=== PATIENT | female | born 1950 | race Caucasian/White ===

== ENCOUNTER → 2018-06-06 19:22 | Outpatient (REF) | payer MEDICARE, BC, SELFPAY ==
[2018-06-06 19:57] LABS: Anion Gap 8.7 mmol/L (3-11); BUN 28 mg/dL (7-18); CO2 26.3 mmol/L (21.0-32.0); CREATININE 0.79 mg/dL (0.55-1.02); Calcium 9.6 mg/dL (8.5-10.1); Chloride 103 mmol/L (98-107); Glucose 73 mg/dL (70-100); Potassium 4.8 mmol/L (3.5-5.1); Sodium 138 mmol/L (136-145)
== END ==
LOC: NCHCN 19:22
PROVIDERS: PCP Nurse Practitioner Family; Visit Provider Nurse Practitioner Family
DX: I10 Essential (primary) hypertension (principal)
CPT/HCPCS: 80048

== ENCOUNTER 2018-12-26 08:42 | Outpatient (CLI) | payer MEDICARE, BC, SELFPAY ==
[2018-12-26 10:20] LABS: Anion Gap 7.3 mmol/L (3-11); BUN 18 mg/dL (7-18); CO2 30.7 mmol/L (21.0-32.0); CREATININE 0.75 mg/dL (0.55-1.02); Calcium 9.3 mg/dL (8.5-10.1); Chloride 105 mmol/L (98-107); Cholesterol 219 mg/dL (50-200); Glucose 95 mg/dL (70-100); HDL Cholesterol 61 mg/dL (40-60); LDL CHOLESTEROL 126 mg/dL (<100); Potassium 4.5 mmol/L (3.5-5.1); Sodium 143 mmol/L (136-145); Triglyceride 188 mg/dL (30-150)
== END 2018-12-26 09:02 ==
PROVIDERS: PCP Nurse Practitioner Family; Visit Provider Nurse Practitioner Family
DX: E11.9 Type 2 diabetes mellitus without complications (principal); I10 Essential (primary) hypertension; N63.0 Unspecified lump in unspecified breast
CPT/HCPCS: 36415; 80048; 80061; 83721

== ENCOUNTER 2019-04-17 11:24 | Outpatient (CLI) | payer MEDICARE, BC, SELFPAY ==
[2019-04-17 14:31] LABS: Abs Immature Grans 0.02 k/cumm (0.0-0.09); Absolute Basophil Count 0.02 k/cumm (0.0-0.2); Absolute Eosinophil Count 0.17 k/cumm (0.0-0.7); Absolute Lymphocyte Count 2.28 k/cumm (1.2-3.4); Absolute Monocyte Count 0.47 k/cumm (0.11-0.7); Absolute Neutrophil Count 3.43 k/cumm (1.2-6.7); Basophils % 0.3; Eosinophils % 2.7; HCT 37.6 % (36.0-46.0); HGB 12.7 g/dL (12.0-15.5); Immature Grans % 0.3; Lymphocytes % 35.7; Mean Corp. HGB Concentration 33.8 g/dL (32.0-36.0); Mean Corpuscular Hemoglobin 30.9 pg (27.0-33.0); Mean Corpuscular Volume 91.5 fL (80-95); Mean Platelet Volume 8.9 fL (8.0-11.0); Monocytes % 7.4; Neutrophils % 53.6; Platelet Count 216 x1000/uL (130-400); RBC 4.11 m/cumm (4.00-5.20); RBC Distribution Width 12.8 % (11.7-14.6); White Blood Cell Count 6.39 k/cumm (4.4-10.8)
--- NOTE | 2019-04-17 14:40 | DI.CT_ITS ---
SYMPTOMS/DIAGNOSIS: RIGHT ARM TINGLING/NUMBNESS ON 04/11/19, R20.0, SLURRED SPEECH, R47.81, ? STROKE CRANIAL CT: Noncontrast cranial CT was performed. There is mild generalized cerebral atrophy. There is no evidence of acute intracranial hemorrhage, mass effect or midline shift. Orbital and temporal bone structures appear intact. The visualized paranasal sinuses and mastoid air cells are clear. CONCLUSION: No evidence of acute intracranial process.
[2019-04-17 15:13] LABS: ESR 24 MM/HR (0-30)
[2019-04-17 15:32] LABS: ALT 12 U/L (12-78); AST 14 U/L (15-37); Albumin 4.1 g/dL (3.4-5.0); Alkaline Phosphatase 57 U/L (46-116); Anion Gap 8.7 mmol/L (3-11); BUN 27 mg/dL (7-18); Bilirubin, Total 0.2 mg/dL (0.2-1.0); C-Reactive Protein 0.29 mg/dL (0.0-0.3); CO2 27.3 mmol/L (21.0-32.0); CREATININE 0.89 mg/dL (0.55-1.02); Calcium 9.9 mg/dL (8.5-10.1); Chloride 103 mmol/L (98-107); Glucose 115 mg/dL (70-100); Potassium 4.8 mmol/L (3.5-5.1); Sodium 139 mmol/L (136-145); TSH 1.33 uIU/mL (0.358-3.74); Total Protein 7.7 g/dL (6.4-8.2)
[2019-04-17 15:48] LABS: HDL Cholesterol 57 mg/dL (40-60); LDL CHOLESTEROL 104 mg/dL (<100)
== END 2019-04-17 11:44 ==
PROVIDERS: PCP Nurse Practitioner Family; Visit Provider Nurse Practitioner Family
DX: R47.81 Slurred speech (principal); R20.0 Anesthesia of skin; E11.9 Type 2 diabetes mellitus without complications; I10 Essential (primary) hypertension
CPT/HCPCS: 36415; 80053; 83721; 85652; 70450; 83718; 84443; 85025; 86140

== ENCOUNTER 2019-07-10 02:26 | Outpatient (CLI) | payer MEDICARE, BC, SELFPAY ==
--- NOTE | 2019-07-16 14:00 | HOLT_ITS ---
The study is a 48-hour Holter monitoring ordered for slurred speech. - Sinus rhythm with an average heart rate of 66 bpm (min 48- max 102). - There were occasional (<1%) isolated and paired atrial premature complexes and zero runs of atrial tachycardia. - There were rare (<1%) isolated ventricular premature complexes and zero runs of ventricular tachycardia. - There were no significant pauses. CC: Dictated by: SEBASTIÁN RODRIGUEZ MD Dictated:: 1400 <Electronically signed by Sebastián Rodriguez M.D.> 07/16/19 1402 Transcribed Date: 07/16/19 Transcribed Time: 1399By: ROSETTE
== END 2019-07-10 02:46 ==
PROVIDERS: PCP Nurse Practitioner Family; Visit Provider Nurse Practitioner Family
DX: R47.81 Slurred speech (principal); R20.0 Anesthesia of skin; I49.1 Atrial premature depolarization; I49.3 Ventricular premature depolarization
CPT/HCPCS: 93225

== ENCOUNTER 2019-07-12 14:31 | Outpatient (CLI) | payer MEDICARE, BC, SELFPAY | END 2019-07-12 14:51 | PROVIDERS: PCP Nurse Practitioner Family; Visit Provider Nurse Practitioner Family | DX: R47.81 Slurred speech (principal); R20.0 Anesthesia of skin; I49.1 Atrial premature depolarization; I49.3 Ventricular premature depolarization | CPT/HCPCS: 93226 ==

== ENCOUNTER 2019-07-16 14:00 | Outpatient (CLI) | payer MEDICARE, BC, SELFPAY | END 2019-07-16 14:20 | PROVIDERS: PCP Nurse Practitioner Family; Referring Provider Nurse Practitioner Family; Visit Provider Internal Medicine Cardiovascular Disease | DX: R47.81 Slurred speech (principal); R20.0 Anesthesia of skin; I49.1 Atrial premature depolarization; I49.3 Ventricular premature depolarization | CPT/HCPCS: 93227 ==

== ENCOUNTER 2019-09-03 13:08 | Outpatient (REF) | payer MEDICARE, BC, SELFPAY ==
[2019-09-03 19:47] LABS: ALT 24 U/L (14-59); AST 19 U/L (15-37); HDL Cholesterol 57 mg/dL (40-60); LDL CHOLESTEROL 43 mg/dL (<100)
[2019-09-03 20:14] LABS: Creatine Kinase 68 U/L (26-192)
== END 2019-09-03 13:28 ==
LOC: NCHCN 13:08
PROVIDERS: PCP Nurse Practitioner Family; Visit Provider Nurse Practitioner Family
DX: I10 Essential (primary) hypertension (principal); E11.9 Type 2 diabetes mellitus without complications; R20.0 Anesthesia of skin; R47.81 Slurred speech
CPT/HCPCS: 82550; 83721; 83718; 84450; 84460

== ENCOUNTER 2020-09-02 08:52 | Outpatient (REF) | payer MEDICARE, BC, SELFPAY ==
[2020-09-02 21:19] LABS: ALT 42 U/L (14-59); AST 30 U/L (15-37); BUN 19 mg/dL (7-18); CREATININE 0.89 mg/dL (0.55-1.02); Calcium 10.5 mg/dL (8.5-10.1); Chloride 104 mmol/L (98-107); Creatine Kinase 62 U/L (26-192); Glucose 85 mg/dL (74-106); Potassium 4.5 mmol/L (3.5-5.1); Sodium 142 mmol/L (136-145)
[2020-09-02 22:05] LABS: HDL Cholesterol 63 mg/dL (40-60); Triglyceride 84 mg/dL (<150); Vitamin B12 521 pg/mL (193-986)
[2020-09-02 23:05] LABS: Calculated LDL 64 mg/dL (<100); Cholesterol 143 mg/dL (<200)
== END 2020-09-02 09:12 ==
LOC: NCHCN 08:52
PROVIDERS: PCP Nurse Practitioner Family; Visit Provider Nurse Practitioner Family
DX: I10 Essential (primary) hypertension (principal); E78.5 Hyperlipidemia, unspecified
CPT/HCPCS: 80048; 80061; 82550; 82607; 84450; 84460

== ENCOUNTER 2021-06-09 03:06 | Outpatient (CLI) | payer MEDICARE, BC, SELFPAY ==
[2021-06-10 09:40] LABS: Parathyroid Hormone,Intact 71 pg/mL (19-88)
== END 2021-06-09 03:07 | disposition home or self-care (01) ==
LOC: LBO 03:07
PROVIDERS: PCP Nurse Practitioner Family; Visit Provider Nurse Practitioner Family
DX: N20.9 Urinary calculus, unspecified (principal); R89.9 Unspecified abnormal finding in specimens from other organs, systems and tissues
CPT/HCPCS: 36415; 83970

== ENCOUNTER 2021-09-06 10:12 | Outpatient (REF) | payer MEDICARE, BC, SELFPAY ==
[2021-09-06 20:21] LABS: Hemoglobin A1C 6.5 % (<5.7)
[2021-09-06 20:33] LABS: ALT 21 U/L (14-59); AST 14 U/L (15-37); Anion Gap 8.6 mmol/L (3-11); BUN 18 mg/dL (7-18); CO2 27.4 mmol/L (21.0-32.0); CREATININE 0.9 mg/dL (0.55-1.02); Calcium 9.6 mg/dL (8.5-10.1); Chloride 102 mmol/L (98-107); Creatine Kinase 49 U/L (26-192); Glucose 149 mg/dL (74-106); HDL Cholesterol 54 mg/dL (40-60); LDL CHOLESTEROL 54 mg/dL (<100); Sodium 138 mmol/L (136-145); TSH 0.95 uIU/mL (0.36-3.74)
== END 2021-09-06 10:13 | disposition home or self-care (01) ==
LOC: NCHCN 10:12
PROVIDERS: PCP Nurse Practitioner Family; Visit Provider Nurse Practitioner Family
DX: E78.5 Hyperlipidemia, unspecified (principal); K59.00 Constipation, unspecified; E11.9 Type 2 diabetes mellitus without complications; I10 Essential (primary) hypertension
CPT/HCPCS: 80048; 82550; 83721; 83036; 83718; 84443; 84450; 84460

== ENCOUNTER → 2021-11-03 13:46 | Outpatient (BNVA) | payer MEDICARE, SELFPAY | PROVIDERS: PCP Nurse Practitioner Family; Referring Provider Nurse Practitioner Family; Visit Provider Nurse Practitioner Adult Health | DX: G31.84 Mild cognitive impairment of uncertain or unknown etiology (principal); R47.89 Other speech disturbances; I10 Essential (primary) hypertension; E11.9 Type 2 diabetes mellitus without complications | CPT/HCPCS: 99204 ==

== ENCOUNTER 2021-11-09 00:23 | Outpatient (CLI) | payer MEDICARE, SELFPAY ==
--- NOTE | 2021-11-09 07:15 | DI.MRI_ITS ---
Exam(s) MR BRAIN WO EXAM: MR BRAIN WO CLINICAL HISTORY: Wordfinding and memory difficulties,mild cognitive impairment,g31.84,r47.89 TECHNIQUE: Multiplanar multisequence MRI of the brain was performed. COMPARISON: CT CT HEAD WO from 04/17/2019 FINDINGS: VENTRICLES AND EXTRA AXIAL SPACES: Normal in size and morphology for the patient's age. MIDLINE SHIFT: None. CEREBRAL PARENCHYMA: No focus of restricted diffusion to suggest acute infarct. No space-occupying le suzette identified. There are areas of hyperintense signal seen in the white matter on the FLAIR and T2 weighted images consistent with small vessel ischemic disease. HEMORRHAGE: None. BRAINSTEM/CEREBELLUM: Normal. There is again seen a partially empty sella. CALVARIUM: Normal. VISUALIZED PARANASAL SINUSES/MASTOIDS:Clear. EYAK OF OLVERA: Normal flow void. PITUITARY GLAND: Unremarkable. OTHER FINDINGS: None. IMPRESSION: 1. Age-related cerebral atrophy and small vessel ischemic disease. 2. No evidence of an acute infarct or intracranial hemorrhage. DATA REPOSITORY:
== END 2021-11-09 00:43 ==
PROVIDERS: PCP Nurse Practitioner Family; Visit Provider Nurse Practitioner Adult Health
DX: G31.84 Mild cognitive impairment of uncertain or unknown etiology (principal); R47.89 Other speech disturbances; G31.89 Other specified degenerative diseases of nervous system
CPT/HCPCS: 70551

== ENCOUNTER 2021-12-06 09:28 | Outpatient (REF) | payer MEDICARE, SELFPAY ==
[2021-12-06 14:03] LABS: ALT 20 U/L (14-59); AST 18 U/L (15-37); HDL Cholesterol 52 mg/dL (40-60); LDL CHOLESTEROL 53 mg/dL (<100)
[2021-12-06 14:24] LABS: Creatine Kinase 64 U/L (26-192)
== END 2021-12-06 09:29 | disposition home or self-care (01) ==
LOC: NCHCN 09:28
PROVIDERS: PCP Nurse Practitioner Family; Visit Provider Nurse Practitioner Family
DX: E78.5 Hyperlipidemia, unspecified (principal); I10 Essential (primary) hypertension
CPT/HCPCS: 82550; 83721; 83718; 84450; 84460

== ENCOUNTER → 2021-12-15 09:10 | Outpatient (BNVA) | payer MEDICARE, SELFPAY | PROVIDERS: PCP Nurse Practitioner Family; Referring Provider Nurse Practitioner Family; Visit Provider Nurse Practitioner Adult Health | DX: R47.89 Other speech disturbances (principal); G31.84 Mild cognitive impairment of uncertain or unknown etiology | CPT/HCPCS: 99213; 99214 ==

== ENCOUNTER → 2022-02-03 09:29 | Outpatient (BNVA) | payer MEDICARE, SELFPAY | PROVIDERS: PCP Nurse Practitioner Family; Referring Provider Nurse Practitioner Family; Visit Provider Nurse Practitioner Adult Health | DX: G30.9 Alzheimer's disease, unspecified (principal); F02.80 Dementia in other diseases classified elsewhere, unspecified severity, without behavioral disturbance, psychotic disturbance, mood disturbance, and anxiety | CPT/HCPCS: 99213 ==

== ENCOUNTER → 2022-03-15 08:18 | Outpatient (BNVA) | payer MEDICARE, SELFPAY | PROVIDERS: PCP Nurse Practitioner Family; Referring Provider Nurse Practitioner Family; Visit Provider Nurse Practitioner Adult Health | DX: G30.9 Alzheimer's disease, unspecified (principal); F02.80 Dementia in other diseases classified elsewhere, unspecified severity, without behavioral disturbance, psychotic disturbance, mood disturbance, and anxiety | CPT/HCPCS: 99213; 99214 ==

== ENCOUNTER 2022-05-09 11:53 | Outpatient (REF) | payer MEDICARE, SELFPAY ==
[2022-05-09 16:30] LABS: Anion Gap 6.2 mmol/L (3-11); BUN 27 mg/dL (7-18); CO2 28.8 mmol/L (21.0-32.0); Calcium 9.8 mg/dL (8.5-10.1); Chloride 103 mmol/L (98-107); Estimated GFR 54.66 (mL/min/1.73m2); Glucose 190 mg/dL (74-106); Potassium 5.3 mmol/L (3.5-5.1); Sodium 138 mmol/L (136-145)
--- NOTE | 2022-05-12 14:47 | W.NUTCONSULT ---
Date of service: 05/12/22 Time of Service: 14:56 Nutritional Consult ASSESSMENT: Audra was referred for diabetes self management education for for education for a continuous glucose monitor. She is accompanied with manager rn case from [facility]. Audra reports that she no longer takes insulin as of 2 days ago. Two days ago she had a blood sugar of 42 mg/dl after taking too much levemir insulin (took 15 units 3 times daily) and too much of the lispro. Her home Dm meds were changed to metformin 1000 mg BID, 10 mg Jardiance qd. PMH: dementia and memory issues. Most recent A1C: 7.0% indicates excellent glycemic control. She brings in her blood sugar log for month- indicating well controlled BS on current regime. Appears to no longer need insulin. Diet Recall: Audra eats the same breakfast and lunch daily: B: 12 grapes, 1 prune, bran muffin (home made) 1 eggs, 2 asparagus, 4 slices carrots, L: 2 handfuls chips, 1/4 avacado, 2 Tbsp Tuna Salad, 1/2 apple, prune, lettuce leaf. D: varies- typically a meat, veg and small portion of starch. INTERVENTION: Audra does not have a phone that is compatible with the Dexcom sample that I have donated from [employer]. Of note, she no longer is eligible for a continuous glucose monitor per Medicare guidelines (must take 4 daily injections of insulin). Recommend Audra continue to check blood sugars TID and provide to PCP With current diet, expect Jardiance and metformin will be sufficient for glycemic control MONITORING AND EVALUATION: will followo up with Audra prn. Time Spent in Nutritional Counseling and Treatment: 30
== END 2022-05-09 11:54 | disposition home or self-care (01) ==
LOC: NCHCN 11:53
PROVIDERS: PCP Nurse Practitioner Family; Visit Provider Nurse Practitioner Family
DX: E11.9 Type 2 diabetes mellitus without complications (principal); I10 Essential (primary) hypertension
CPT/HCPCS: 80048; 83036

== ENCOUNTER 2022-06-01 03:06 | Outpatient (CLI) | payer MEDICARE, SELFPAY ==
--- NOTE | 2022-06-01 15:00 | NS.NUTBLAN_ITS ---
Audra returns for diabetes self management education. DM Meds: 25 mg Jardiance qd, 1000 mg metformin BID Fasting sugars: reported as less than 150 mg/dl Post Prandial sugar levels: reported as less than 180 mg/dl Audra is happy that she is able to manage her Dm2 without insulin. She took insulin over 10 years. Currently, she is able to keep her blood sugars in ideal range without insulin and is doing a great job keeping carb intake consistent at all meals. It helps that she eats the same thing for breakfast and lunch. Session today focused on eating out and at pot lucks. We discussed meal options that will be best for her glycemic management. Also, reviewed how often she needs to check her sugars. Recommend that if fasting sugars below 150 mg/dl, she can check them twice daily. If fasting sugars go above 150, recommend follow up with her PCP and checking her sugars 3-4 times daily. No follow up planned at this time.
== END 2022-06-01 03:07 | disposition home or self-care (01) ==
LOC: DS 03:06
PROVIDERS: PCP Nurse Practitioner Family; Visit Provider Dietitian, Registered
DX: E11.9 Type 2 diabetes mellitus without complications (principal); Z79.84 Long term (current) use of oral hypoglycemic drugs; Z71.3 Dietary counseling and surveillance
CPT/HCPCS: 97803

== ENCOUNTER → 2022-06-09 08:38 | Outpatient (BNVA) | payer MEDICARE, SELFPAY | PROVIDERS: PCP Nurse Practitioner Family; Referring Provider Nurse Practitioner Family; Visit Provider Physical Therapy Assistant | DX: Z80.0 Family history of malignant neoplasm of digestive organs (principal); Z12.11 Encounter for screening for malignant neoplasm of colon ==

== ENCOUNTER → 2022-06-20 08:34 | Outpatient (BNVA) | payer MEDICARE, SELFPAY | PROVIDERS: PCP Nurse Practitioner Family; Referring Provider Nurse Practitioner Family; Visit Provider Nurse Practitioner Adult Health | DX: G30.9 Alzheimer's disease, unspecified (principal); F02.80 Dementia in other diseases classified elsewhere, unspecified severity, without behavioral disturbance, psychotic disturbance, mood disturbance, and anxiety; R00.1 Bradycardia, unspecified; E11.9 Type 2 diabetes mellitus without complications | CPT/HCPCS: 99213 ==

== ENCOUNTER 2022-06-24 09:05 | Day surgery (SDC) | payer MEDICARE, SELFPAY ==
--- NOTE | 2022-06-23 19:31 | COLE_ITS ---
Colonoscopy Report Date of procedure: 06/24/22 Pre-op diagnosis general: family hx of crc cacner- father Post-op diagnosis procedure note: other (diveritcular Dx) Surgeon: Hannah Pratt Anesthesia Type: General:No Airway Estimated blood loss (mL): 0 Pathology: none sent Complications: None Disposition: same day Prep: Miralax/Dulcolax Retraction Time: 7 Procedure Description: After informed consent was obtained the patient was taken to the procedure room and placed in a left decubitous position. Monitors were applied and a time out was done. The patients name, date of , procedure, allergies to medications and metal in their body was reviewed. The patient was then sedated. Once sedated and comfortable a rectal exam was done. External exam: mild ext. hemorrhoids. Anus is patulent w/ poor tone. Internal exam revealed a normal sphincter tone and no palpable masses. The scope was then introduced and retrofelexed. Grade I internal hemorrhoids were identified. The scope was then advanced to the cecum w/out difficulty. The TI and appendiceal orifice were identified. The prep was BBPS 3 in all segments for a total of 9. The scope was then slowly retracted over 7 minutes back into the rectum. There were no polyps or AVMs. She has minor diverti cular disease confined to the sigmoid colon. There is no signs of active bleeding or infection. Mucosa is pink and healthy with a normal vascular pattern. She does have poor tone. the scope was removed and the patient was woken up and taken back to Same day surgery in stable condition. The patient tolerated the procedure well and there were no immediate complications. Follow up: The patient does not require any further colonoscopies, unless they develop changes in bowel habits or other new gastrointestinal complaints.
--- NOTE | 2022-06-23 19:32 | PDOC.DSDIS_ITS ---
Discharge Plan Disposition Patient Disposition: HOME Condition: Good Discharge Details Reason For Visit: colon scope Attending Provider: Hannah Pratt Primary Care Provider: Tiana Mcneal Home Meds and New Rx's Prescriptions: Continued Jardiance 10 mg tablet 25 mg PO DAILY donepezil 5 mg tablet 5 mg PO QHS Qty: 90 3RF memantine 10 mg tablet 10 mg PO BID Qty: 180 3RF aspirin [Aspir-81] 81 MG tablet,delayed release (DR/EC) 81 mg PO DAILY metformin 1,000 MG tablet 1,000 mg PO BID lisinopril 10 MG tablet 10 mg PO DAILY ibuprofen 200 mg capsule 200 mg PO BID PRN calcium carbonate 600 mg calcium (1,500 mg) tablet 600 mg PO DAILY acetaminophen 325 mg capsule 325 mg PO ONCE PRN atorvastatin 40 mg tablet 20 mg PO QHS Discontinued bisacodyl [Dulcolax (bisacodyl)] 5 mg tablet,delayed release (DR/EC) 5 mg PO ONCE Qty: 4 0RF Rx Instructions: Take according to provider's instructions for colonoscopy prep. polyethylene glycol 3350 17 gram/dose powder 17 g PO ONCE Qty: 238 0RF Rx Instructions: To be taken as directed by prescriber's office for colonoscopy prep. Discharge Instructions Additional Instructions: DSU Colonoscopy Post- Op Instructions Instructions for Everyone who is given Anesthesia: For your safety, please do the following for the next twenty-four (24) hours: *Do Not operate a motor vehicle (car, truck, motorcycle, etc.) *Do Not drink alcoholic beverages or use any recreational drugs for the first 24 hours or while taking pain medications. The medications in your body may have a reaction that can be dangerous. *Do Not make any important decisions or sign any important papers. Findings: Diverituclar Dx- mild Follow up: no further colonoscopy's 1. No lifting over 20 pounds or strenuous activity for the first 24 hours after your procedure. After 24 hours there are no restrictions on your activity but you may feel fatigued for a few days. 2. After you arrive home you may have a light meal and return to your normal di et as you can tolerate it without feeling sick to your stomach. 3. You may have a bloated, gaseous feeling in your belly (abdomen) after a colonoscopy. Passing gas and belching will help. Walking or lying down on your left side with your knees flexed may relieve the discomfort. Call the office at [phone] (Office) or [phone] (Hospital) right away if you notice any of the following: a.Vomiting of blood or ?coffee ground stools?. b.Rectal bleeding 1Tbsp, blood clots or continuous bleeding. c.Severe belly (abdominal) pain. d.A hard distended belly (abdomen) and an inability to pass gas. 4. Please don?t expect to have a normal BM (bowel movement) for 2-3 days after your procedure. 5. If there are questions regarding the findings of your procedure, please contact your doctor 6. If you are unable to contact your doctor with a problem, contact the hospital at [phone]. 7. Continue all your regular medications unless directed otherwise. I understand the above instructions and have no questions. Signature of Patient or Adult Escort Name of Responsible Adult Escort Signature of Nurse Date/Time Activity:: see above Diet:: see above Discharge Orders Discharge Orders: Discharge Order (Routine); Ordered 06/23/22 Ordered By: Hannah Pratt
[2022-06-24 09:25] VITALS: BP 121/60; PULSE 87; RESP 18; TEMP 36.4; O2SAT 98
--- NOTE | 2022-06-24 09:57 | W.ANESPRE ---
General Info Date of Service Date Performed: 06/24/22 Height: 5 ft 4 in Weight: 67.9 kg Body Mass Index (BMI): 25.7 Surgical Procedure: Operation Date: 06/24/22 10:35 Proposed Procedure Side Surgeon kalpesh Pratt, Meds Allergies and Home Medications Allergies Allergy/AdvReac Type Severity Reaction Status Date / Time amoxicillin Allergy Severe Verified 06/24/22 09:21 Penicillins Allergy Severe anaphalaxis Verified 06/24/22 09:21 Home Medication Medication Instructions Recorded Aspir-81 81 mg tablet,delayed 81 mg PO DAILY 10/07/13 release (aspirin) lisinopril 10 mg tablet 10 mg PO DAILY 10/07/13 metformin 1,000 mg tablet 1,000 mg PO BID 10/07/13 acetaminophen 325 mg capsule 325 mg PO ONCE PRN 06/10/21 calcium carbonate 600 mg calcium 600 mg PO DAILY 06/10/21 (1,500 mg) tablet ibuprofen 200 mg capsule 200 mg PO BID PRN 06/10/21 atorvastatin 40 mg tablet 20 mg PO QHS 09/17/21 donepezil 5 mg tablet 5 mg PO QHS #90 tabs 03/15/22 memantine 10 mg tablet 10 mg PO BID #180 tabs 03/15/22 empagliflozin 10 mg tablet 25 mg PO DAILY 06/09/22 (Jardiance) Current Visit Medications: Current Medications Generic Name Dose Route Start Last Admin Trade Name Freq PRN Reason Stop Dose Admin Hyoscyamine Sulfate 0.125 mg 06/23/22 19:28 Hyoscyamine 0.125 Mg Sl/Oral/Chew SL DIRECTED PRN Ringer's Solution 1,000 mls @ 80 mls/hr 06/24/22 06:00 IV 07/23/22 23:59 [facility] IV Miscellaneous Supplies 1 each 06/24/22 06:00 Iv Access IV 07/23/22 23:59 DIRECTED DAVON Ondansetron HCl 4 mg 06/23/22 19:28 Ondansetron 4 Mg/2 Ml Vial IVP Q4H PRN PRN Nausea / Vomiting Sodium Chloride 0 ml 06/24/22 06:00 Normal Saline Flush 10 Ml Syr IV 07/23/22 23:59 PRN PRN Sodium Chloride 0 ml 06/24/22 06:00 Normal Saline 10 Ml Vial IJ 07/23/22 23:59 DIRECTED PRN Sterile Water 0 ml 06/24/22 06:00 Water,Injection,Sterile 10 Ml Vial IJ 07/23/22 23:59 DIRECTED PRN PFSH Active Problems Active Problems: Problem Status Onset Code Family history of colon cancer Z80.0 Screening for colon cancer Z12.11 Constipation K59.00 Mild cognitive impairment G31.84 Word finding difficulty R47.89 Alzheimer's dementia without behavioral disturbance G30.9, F02.80 Medical History Medical History Calcium oxalate kidney stones Depression Family history of Alzheimer's disease Hyperlipidemia Hypertension Impingement syndrome of left shoulder Lyme disease Nocturia Slurred speech Type 2 diabetes mellitus Surgical History Surgical History (Updated 06/24/22 @ 09:21 by Charlette Laws) Colonoscopy - MAC 2014-NEG History of tubal ligation Tobacco Smoking/Tobacco Use Status: Former Tobacco Use Alcohol Alcohol Intake: current Alcohol intake frequency: holidays/special occasions only Substance Use Substance use: Never Substance use type: does not use Vital Signs and Lab Results Vital Signs Most Recent Vital Signs in EMR: Most Recent Vital Signs Temp Pulse Resp BP Pulse Ox 36.4 C L 87 18 121/60 98 06/24/22 09:25 06/24/22 09:25 06/24/22 09:25 06/24/22 09:25 06/24/22 09:25 Point of Care Results Point of Care Results: Finger Stick Blood Glucose 85 06/24/22 09:39 Lab Results Blood Type / Crossmatch: No Data to Display Complete Blood Count: No Data to Display Complete Metabolic Panel: No Data to Display Liver Function Panel: No Data to Display Coagulation Panel: No Data to Display Cardiac Panel: No Data to Display Arterial Blood Gas: No Data to Display Venous Blood Gas: No Data to Display Pancreas Panel: No Data to Display Thyroid Panel: No Data to Display Infectious Disease: No Data to Display Blood Cultures: No Data to Display Toxicology Panel: No Data to Display Anesthesia Assessment and Plan Anesthesia History Personal History: No History of Anesthesia Complications Family History: No Family History of Anesthesia Complications Exercise Tolerance Exercise Tolerance: Metabolic Equivalents>4 Pertinent Negatives Pertinent Negatives: No Symptoms of GERD and No Major Cardiovascular Symptoms or Complaints Cardiac & Pulmonary Exam Cardiac Exam: Normal S1/S2 Heart Sounds and Known Innocent Murmur Pulmonary Exam: Clear Bilateral Breath Sounds Implantable Cardiac Device Does patient have a Pacemaker or an ICD?: No Airway Exam Known Difficult Airway: No Mallampati Class: 1 Mouth Opening: Normal (> 3cm) Thyromental Distance: Greater than 3 cm Neck Range of Motion: Full ROM Neck Circumference: Normal Teeth Condition: Normal Dentition ASA Classification ASA Score: ASA 2 Emergency Case?: No NPO Status NPO Status: NPO Clears >2 hours, Solids >8 hours Anesthesia Plan Resuscitation Status: Full Code Anesthesia Technique: General Anesthesia Airway Planned: Natural Airway Monitors Used: Standard Monitors
[2022-06-24 10:01] VITALS: BMI 25.7
[2022-06-24] MEDS: Lactated Ringers 1,000 ML 80 ML IV (10:21)
[2022-06-24 10:55] VITALS: BP 96/67; PULSE 70; RESP 16; TEMP 36.3; O2SAT 97
--- NOTE | 2022-06-24 10:57 | W.ANESPOSTOP ---
Postoperative Evaluation Date, Time and Location Date Performed: 06/24/22 Time Performed: 10:57 Patient Location: Day Surgery Unit Vital Signs Most Recent Imported Vital Signs: Most Recent Vital Signs Temp Pulse Resp BP Pulse Ox 36.4 C L 87 18 121/60 98 06/24/22 09:25 06/24/22 09:25 06/24/22 09:25 06/24/22 09:25 06/24/22 09:25 Most Recent Manually Entered Vital Signs: Adult Blood Pressure: 96/67 Heart Rate: 69 Respirations: 12 Oxygen Saturation (%): 98 Temperature (C): 36.3 C Pain Score (0-10 Scale): 0 Pain Score Most Recent Pain Score: Most Recent Pain Score Pain Level 0 06/24/22 09:25 Assessment Mental Status: Awake (Alert & Oriented to Patient Baseline) Airway and Respiratory Function: Patent airway with normal (patient baseline) respiratory exam Cardiovascular Function: Hemodynamically Stable Hydration Status: Adequately Hydrated Nausea & Vomiting: No Nausea or Vomiting Pain: Pt. Denies Any Pain Peripheral Nerve Block: Patient did not receive a nerve block
[2022-06-24 10:58] VITALS: BP 96/67; PULSE 69; RESP 12; TEMPC 36.3; O2SAT 98
[2022-06-24 11:25] VITALS: BP 116/58; PULSE 66; RESP 16; TEMP 36.4; O2SAT 97
--- NOTE | 2022-06-24 11:55 | W.ANESPOSTOP ---
Postoperative Evaluation Date, Time and Location Date Performed: 06/24/22 Time Performed: 11:55 Patient Location: Day Surgery Unit Vital Signs Most Recent Imported Vital Signs: Most Recent Vital Signs Temp Pulse Resp BP Pulse Ox 36.3 C L 70 16 96/67 L 97 06/24/22 10:55 06/24/22 10:55 06/24/22 10:55 06/24/22 10:55 06/24/22 10:55 Most Recent Vital Signs Temp Pulse Resp BP Pulse Ox 36.4 C L 87 18 121/60 98 06/24/22 09:25 06/24/22 09:25 06/24/22 09:25 06/24/22 09:25 06/24/22 09:25 Most Recent Manually Entered Vital Signs: Adult Blood Pressure: 128/107 Heart Rate: 70 Respirations: 12 Oxygen Saturation (%): 99 Temperature (C): 36.3 C Pain Score (0-10 Scale): 0 Pain Score Most Recent Pain Score: Most Recent Pain Score Pain Level 0 06/24/22 10:55 Assessment Mental Status: Awake (Alert & Oriented to Patient Baseline) Airway and Respiratory Function: Patent airway with normal (patient baseline) respiratory exam Cardiovascular Function: Hemodynamically Stable Hydration Status: Adequately Hydrated Nausea & Vomiting: No Nausea or Vomiting Pain: Pt. Denies Any Pain Peripheral Nerve Block: Patient did not receive a nerve block
== END 2022-06-24 11:48 | disposition home or self-care (01) ==
LOC: SUR 09:05
PROVIDERS: PCP Nurse Practitioner Family; Visit Provider Surgery
PROC: 0DJD8ZZ Inspection of Lower Intestinal Tract, Via Natural or Artificial Opening Endoscopic (ICD-10-PCS; CPT 45378; principal; 2022-06-24 10:30)
DX: Z12.11 Encounter for screening for malignant neoplasm of colon (principal); Z80.0 Family history of malignant neoplasm of digestive organs; K57.30 Diverticulosis of large intestine without perforation or abscess without bleeding; E11.9 Type 2 diabetes mellitus without complications
CPT/HCPCS: G0105

== ENCOUNTER 2022-08-15 13:55 | Outpatient (REF) | payer MEDICARE, SELFPAY ==
[2022-08-15 18:29] LABS: Anion Gap 7.7 mmol/L (3-11); BUN 29 mg/dL (7-18); CO2 29.3 mmol/L (21.0-32.0); Calcium 9.7 mg/dL (8.5-10.1); Chloride 103 mmol/L (98-107); Estimated GFR 60.23 (mL/min/1.73m2); Glucose 125 mg/dL (74-106); HDL Cholesterol 63 mg/dL (40-60); LDL CHOLESTEROL 50 mg/dL (<100); Potassium 4.7 mmol/L (3.5-5.1); Sodium 140 mmol/L (136-145)
[2022-08-15 18:33] LABS: Hemoglobin A1C 7.6 % (<5.7)
== END 2022-08-15 13:56 | disposition home or self-care (01) ==
LOC: NCHCN 13:55
PROVIDERS: PCP Nurse Practitioner Family; Visit Provider Nurse Practitioner Family
DX: E78.5 Hyperlipidemia, unspecified (principal); E11.9 Type 2 diabetes mellitus without complications; R89.9 Unspecified abnormal finding in specimens from other organs, systems and tissues; I10 Essential (primary) hypertension
CPT/HCPCS: 80048; 83721; 83036; 83718

== ENCOUNTER → 2022-12-20 09:08 | Outpatient (BNVA) | payer MEDICARE, SELFPAY | PROVIDERS: PCP Nurse Practitioner Family; Referring Provider Nurse Practitioner Family; Visit Provider Nurse Practitioner Adult Health | DX: R47.89 Other speech disturbances (principal); G30.9 Alzheimer's disease, unspecified; F02.80 Dementia in other diseases classified elsewhere, unspecified severity, without behavioral disturbance, psychotic disturbance, mood disturbance, and anxiety | CPT/HCPCS: 99213; 99214 ==

== ENCOUNTER → 2023-01-19 13:26 | Outpatient (BNVA) | payer MEDICARE, SELFPAY | PROVIDERS: PCP Nurse Practitioner Family; Referring Provider Nurse Practitioner Family; Visit Provider Nurse Practitioner Adult Health | DX: G30.9 Alzheimer's disease, unspecified (principal); F02.80 Dementia in other diseases classified elsewhere, unspecified severity, without behavioral disturbance, psychotic disturbance, mood disturbance, and anxiety; R47.89 Other speech disturbances | CPT/HCPCS: 99213 ==

== ENCOUNTER 2023-03-28 12:37 | Outpatient (REF) | payer MEDICARE, SELFPAY ==
[2023-03-28 15:27] LABS: Hemoglobin A1C 7.8 % (<5.7)
== END 2023-03-28 12:38 | disposition home or self-care (01) ==
LOC: NCHCN 12:37
PROVIDERS: PCP Nurse Practitioner Family; Visit Provider Nurse Practitioner Family
DX: E11.9 Type 2 diabetes mellitus without complications (principal)
CPT/HCPCS: 83036

== ENCOUNTER → 2023-07-27 14:53 | Outpatient (BNVA) | payer MEDICARE, SELFPAY | PROVIDERS: PCP Nurse Practitioner Family; Referring Provider Nurse Practitioner Family; Visit Provider Nurse Practitioner Adult Health | DX: G30.9 Alzheimer's disease, unspecified (principal); F02.80 Dementia in other diseases classified elsewhere, unspecified severity, without behavioral disturbance, psychotic disturbance, mood disturbance, and anxiety; E11.9 Type 2 diabetes mellitus without complications; I10 Essential (primary) hypertension | CPT/HCPCS: 99213 ==

== ENCOUNTER 2023-09-21 13:10 | Outpatient (REF) | payer MEDICARE, SELFPAY ==
--- OUTSIDE RECORDS SUMMARY | 2023-09-21 13:12 | XMS_ITS | Continuity of Care Document ---
Author Name Unknown Organization [facility] Address [address] [place] [address] Care Team Providers Care Vamp Maker Name Role Phone RikkiTiana martinez Primary Care Physician Encounter NCTY_[place] Date(s): 09/07/23 - 09/07/23 [facility] [address] [place] [address] Discharge Disposition: Home or Self Care Attending Physician: Adilson Dickson MD Admitting Physician: Adilson Dickson MD Referring Physician: Adilson Dickson MD Allergies, Adverse Reactions, Alerts Substance Reaction Severity Status amoxicillin 1 Unknown Unknown Active penicillins Other Unknown Active 1Outside Source Comment: CIS - SOB, Edema, CIS - SOB, Edema Immunizations Given and Recorded Vaccine Date Status Refusal Reason influenza virus vaccine, inactivated 07/09/14 Uriah rded Medications Actos 15 mg oral tablet 15 mg = 1 tab, Oral, Daily, # 30 tab, 0 Refill(s) Start Date: 09/07/23 Status: Ordered aspirin 81 mg oral delayed release tablet Oral, 81 Unknown, 1 Refill(s), Take 81 mg by mouth daily., 0 Refill(s) Start Date: 03/09/23 Status: Ordered atorvastatin 10 mg oral tablet 10 mg = 1 tab, Oral, Daily, # 90 tab, 0 Refill(s) Start Date: 04/06/23 Status: Ordered calcium (as carbonate) 500 mg oral tablet 0 Refill(s) Start Date: 03/09/23 Status: Ordered donepezil 10 mg oral tablet 10 mg = 1 tab, Oral, every day at bedtime, # 30 tab, 0 Refill(s) Start Date: 03/09/23 Status: Ordered Januvia 100 mg oral tablet 100 mg 1 tab, Oral, Daily, # 30 tab, 0 Refill(s) Start Date: 09/07/23 Status: Ordered Januvia 25 mg oral tablet 2 tablets, Oral, Daily, # 30 tab, 0 Refill(s) Start Date: 03/09/23 Status: Ordered lisinopril 10 mg oral tablet 90 EA, TAKE 1 TABLET BY MOUTH ONCE DAILY, 0 Refill(s) Start Date: 03/09/23 Status: Ordered magnesium oxide 250 mg oral tablet 500 mg = 2 tab, Oral, Daily, # 20 tab, 0 Refill(s) Start Date: 03/09/23 Stop Date: 03/19/23 Status: Ordered metFORMIN 1000 mg oral tablet 180 EA, TAKE 1 TABLET BY MOUTH TWICE DAILY, 0 Refill(s) Start Date: 03/09/23 Status: Ordered MiraLax oral powder for reconstitution 17 g, Oral, Daily, # 238 g, 0 Refill(s) Start Date: 03/09/23 Status: Ordered Myrbetriq 50 mg oral tablet, extended release 50 mg = 1 tab, Oral, Daily, do not crush or chew, # 28 tab, 0 Refill(s), samples given to patient (Rx) Start Date: 02/10/23 Stop Date: 03/10/23 Status: Ordered Namenda 10 mg oral tablet 0 Refill(s) Start Date: 03/09/23 Status: Ordered Vitamin B12 1000 mcg oral tablet 1,000 mcg = 1 tab, Oral, Daily, # 30 tab, 0 Refill(s) Start Date: 04/06/23 Status: Ordered Problem List Condition Confirmation Course Effective Dates Status H ealth Status Informant Alzheimer's dementia Confirmed Active Constipation Confirmed Active Dementia Confirmed Active Depression Confirmed Active Family history of colon cancer Confirmed Active Family history of Alzheimer's disease Confirmed Active Follicle cyst Confirmed Active Callus of foot Confirmed Active Heart murmur Confirmed Active History of calculus of kidney Confirmed 02/17/16 Active History of Lyme disease Confirmed Active Hyperlipidemia Confirmed Active Hypertension Confirmed Active Impingement syndrome of left shoulder Confirmed Active Joint pain Confirmed Active Abnormal laboratory test result Confirmed Active Nocturia Confirmed Active Onychomadesis Confirmed Active Postmenopausal status (age-related) (natural) Confirmed Active Slurred speech Confirmed Active Type 2 diabetes mellitus Confirmed 03/14/12 Active Urinary incontinence Confirmed Active Urolithiasis Confirmed Active Word finding difficulty Confirmed Active Procedures Procedure Date Related Diagnosis Body Site Status Colonoscopy Completed None Completed Results Orders for Microbiology Reports Name Date Urine Culture 09/07/23 Microbiology Reports TEST:Urine Culture STATUS:Order in Progress BODY SITE: SOURCE:Urine, Clean Catch COLLECTED DATE/TIME:09/07/23 1:35 PM PRELIMINARY REPORT No growth at 24 hours. Social History Social History Type Response Tobacco Former tobacco user Tobacco Use:. Total pack years: 2. Sex Female Patient Care team information Care Team Personnel Name: Tiana Mcneal NP Position: No Access Member Role: Informed Provider Address: Address: [address] Care Team Related Persons Name: ANDRIY URIBE
--- OUTSIDE RECORDS SUMMARY | 2023-09-21 13:12 | XMS_ITS | Continuity of Care Document ---
Author Name Unknown Organization [facility] Address [address] [place] [address] Care Team Providers Care Claims Service Adjustor Name Role Phone Tiana Mcneal Primary Care Physician [phone] Encounter NCTY_[place] Date(s): 10/24/22 - 10/24/[address] [address] Discharge Disposition: Home or Self Care Attending Physician: Tiana Mcneal NP Admitting Physician: Tiana Mcneal NP Referring Physician: Tiana Mcneal NP Allergies, Adverse Reactions, Alerts Substance Reaction Severity Status penicillins Other Unknown Active Social History Social History Type Response Sex Female Patient Care team information Personnel Name: Tiana Mcneal NP Address: Address: [id number] [place] [address]
--- OUTSIDE RECORDS SUMMARY | 2023-09-21 13:12 | XMS_ITS | Continuity of Care Document ---
Author Name Unknown Organization [facility] Address [address] [place] [address] Care Team Providers Care Mononitrotoluene Operator Name Role Phone RikkiTiana martinez Primary Care Physician Encounter NCTY_[place] Date(s): 04/28/23 - 04/28/23 [facility] [address] [place] [address] Discharge Disposition: Home or Self Care Attending Physician: Chary Cash PA-C Admitting Physician: Chary Cash PA-C Allergies, Adverse Reactions, Alerts Substance Reaction Severity Status amoxicillin 1 Unknown Unknown Active penicillins Other Unknown Active 1Outside Source Comment: CIS - SOB, Edema, CIS - SOB, Edema Assessment and Plan Future Appointments Immunizations Given and Recorded Vaccine Date Status Refusal Reason influenza virus vaccine, inactivated 07/09/14 Uriah rded Medications aspirin 81 mg oral delayed release tablet [...] Refill(s) Start Date: 03/09/23 Status: Ordered Januvia 25 mg oral tablet [...] for Microbiology Reports Name Date Urine Culture 04/28/23 Microbiology Reports TEST:Urine Culture STATUS:Order in Progress BODY SITE: SOURCE:Urine, Clean Catch COLLECTED DATE/TIME:04/28/23 3:43 PM PRELIMINARY REPORT <10,000 cfu/ml Gram Positive Cocci Social History Social History Type Response Tobacco Former tobacco user Tobacco Use:. Total pack years: 2. Sex Female Patient Care team information Care Team Personnel Name: Tiana Mcneal BILLING CONTROL CLERK Position: No Access Member Role: Informed Provider Address: Address: [address] Care Team Related Persons Name: RONY ANDRIY Address: Home
--- OUTSIDE RECORDS SUMMARY | 2023-09-21 13:12 | XMS_ITS | Continuity of Care Document ---
Author Name Unknown Organization [facility] Address [address] [place] [address] Care Team Providers Care Home Health Billing Specialist Name Role Phone Elizabet Tiana Primary Care Physician [phone] Encounter NCTY_AL Date(s): 04/13/23 - 04/13/23 [facility] [address] [place] [address] Encounter Diagnosis Labial fusion(Discharge Diagnosis) - 04/13/23 Atrophic vulvovaginitis(Discharge Diagnosis) - 04/13/23 Total urinary incontinence(Discharge Diagnosis) - 04/13/23 Dementia(Discharge Diagnosis) - 04/13/23 Postmenopausal atrophic vaginitis(Final) - Other specified urinary incontinence(Final) - Unspecified dementia, unspecified severity, without behavioral disturbance, psychotic disturbance, mood disturbance, and anxiety(Final) - Fusion of labia(Final) - Type 2 diabetes mellitus without complications(Final) - Discharge Disposition: Home or Self Care Attending Physician: Adilson Dickson MD Admitting Physician: Adilson Dickson MD Referring Physician: Adilson Dickson MD Allergies, Adverse Reactions, Alerts Substance Reaction Severity Status amoxicillin 1 Unknown Unknown Active penicillins Other Unknown Active 1Outside Source Comment: CIS - SOB, Edema, CIS - SOB, Edema Assessment and Plan Future Appointments Functional Status 04/13/23 Other exposure to Infectious Disease Non e Immunizations Given and Recorded Vaccine Date Status [...] Site Status Colonoscopy Completed None Completed Results Laboratory List Name Date Glucose POCT 04/13/23 Most recent to oldest [Reference Range]: 1 Glucose POC [74-106 mg/dL] 154 mg/dL *HI* (04/13/23 7:38 AM) Vital Signs Most recent to oldest [Reference Range]: 1 2 3 Temperature Temporal Artery [36-38 Deg C] 36.3 Deg C (04/13/23 12:32 PM) 36.2 Deg C (04/13/23 12:05 PM) 35.7 Deg C *LOW* (04/13/23 11:49 AM) Temperature Temporal Artery (DegF) [97.3-100 Deg F] 97.34 Deg F (04/13/23 12:32 PM) 97.16 Deg F *LOW* (04/13/23 12:05 PM) 96.26 Deg F *LOW* (04/13/23 11:49 AM) Peripheral Pulse Rate [60-100 bpm] 61 bpm (04/13/23 12:32 PM) 57 bpm *LOW* (04/13/23 12:20 PM) 58 bpm *LOW* (04/13/23 12:05 PM) Heart Rate Monitored [60-100 bpm] 61 bpm (04/13/23 12:32 PM) 56 bpm *LOW* (04/13/23 12:20 PM) 57 bpm *LOW* (04/13/23 12:05 PM) Respiratory Rate [12-24 br/min] 17 br/min (04/13/23 12:32 PM) 13 br/min (04/13/23 12:20 PM) 19 br/min (04/13/23 12:05 PM) Blood Pressure [90-140/60-90 mmHg] 102/68mmHg (04/13/23 12:32 PM) 117/54mmHg (04/13/23 12:20 PM) 126/55mmHg (04/13/23 12:05 PM) Mean Arterial Pressure, Cuff [65-140 mmHg] 79 mmHg (04/13/23 12:32 PM) 75 mmHg (04/13/23 12:20 PM) 79 mmHg (04/13/23 12:05 PM) Mean Arterial Pressure Cuff 81 mmHg (04/13/23 7:36 AM) Blood Pressure Location Right arm (04/13/23 7:36 AM) Weight 65.4 kg (04/13/23 7:36 AM) Height 163 cm (04/13/23 7:36 AM) Social History Social History Type Response Tobacco Former tobacco user Tobacco Use:. Total pack years: 2. Sex Female Hospital Discharge Instructions Follow Up Care 03/28/2023 16:15:00 With:Adilson Dickson MD Address: [facility] [address] [place] [address] When:1 to 2 weeks Comments:Office visit??10 to 14 days. Discharge instructions * Rosa Sims RN: PERFORM Event Display: Discharge Instructions Authored Date: [id number] BETHANY CHRIST Gumaro :1950 Age:72 years Sex:Female Visit Date:04/13/2023 Primary Care Physician: Tiana Mcneal NP Hospital Discharge Instructions We would like to thank you for allowing us to assist you with your healthcare needs. The following includes patient education materials and information regarding your injury/illness. Your Next Steps Instructions From Your Care Team Diet as tolerated. ??Activity as tolerated. ??Expect some blood spotting from the vagina.?? Apply??water-based??lubricant to the upper and lower??parts of the vagina 2-3 times daily until office visit.?? May use Tylenol, exercising Tylenol, ibuprofen, Advil, or Aleve for pain.?? Call or return for fever above 100.5, shaking chills, severe pain, difficulty voiding, heavy bleeding, or other concerns. Discharge Orders Discharge Diet Instruction, Regular home diet Medications What How Much When Why Instructions Next Dose Changed SITagliptin (Januvia 25 mg oral tablet) 2 tablets Oral (given by mouth) Every day Unchanged aspirin (aspirin 81 mg oral delayed release tablet) Oral (given by mouth) 81 Unknown, 1 Refill(s), Take 81 mg by mouth daily. ?? Unchanged atorvastatin (atorvastatin 10 mg oral tablet) 1 tab Oral (given by mouth) Every day Unchanged calcium carbonate (calcium (as carbonate) 500 mg oral tablet) Unchanged cyanocobalamin (Vitamin B12 1000 mcg oral tablet) 1 tab Oral (given by mouth) Every day Unchanged donepezil (donepezil 10 mg oral tablet) 1 tab Oral (given by mouth) Every night at bedtime Unchanged lisinopril (lisinopril 10 mg oral tablet) 90 EA, TAKE 1 TABLET BY MOUTH ONCE DAILY ?? Unchanged magnesium oxide (magnesium oxide 250 mg oral tablet) 2 tab Oral (given by mouth) Every day Duration: 10 Days Unchanged memantine (Namenda 10 mg oral tablet) Unchanged metFORMIN (metFORMIN 1000 mg oral tablet) 180 EA, TAKE 1 TABLET BY MOUTH TWICE DAILY ?? Unchanged mirabegron (Myrbetriq 50 mg oral tablet, extended release) 1 tab Oral (given by mouth) Every day Incontinence without sensory awareness Duration: 28 Days do not crush or chew ?? Unchanged polyethylene glycol 3350 (MiraLax oral powder for reconstitution) 17 Gram Oral (given by mouth) Every day Your Summary Your Care Team Admitting Physician - Adilson Dickson MD Attending Physician - Adilson Dickson MD Primary Care Physician - Tiana Mcneal NP Referring Physician - Adilson Dickson MD Patient Name:CHRIST SIMS I have received this information and my questions have been answered. Patient/Package Line Operator Name: Patient/Package Line Operator Signature: Relationship to Patient: Witness Name/Signature: Date: Electronically Signed on: 04/13/2023 12:10 EDTSigned by:RA History and physical note * Adilson Dickson MD: PERFORM Event Display: History and Physical Authored Date: [id number] CHRIST SIMS :1950 Age:72 years Sex:Female Primary Care Physician: Tiana Mcneal NP Chief Complaint Surgery History of Present Illness Mrs. Sims was evaluated recently for UTI's and urinary incontinence. ?? Exam revealed labial fusion.?? It was suspected that vaginal voiding might be part of her incontinence issue.?? Release of the fusion was recommended. ?? We also addressed some of her medications and tried Myrbetriq.?? She felt that she was better, but her daughter felt that the incontinence was the same. ?? Case was discussed at length with her PCP. ?? After discussion, she now presents for??release of labial fusion and??diagnostic cystourethroscopy. Review of Systems Interval review of systems is negative.?? However,??patient has cognitive impairment and generally??does not offer complaints. Physical Exam Pleasant elderly woman in no distress. ?? HEENT normal. ?? Respirations are unlabored. ?? Abdomen is soft and nontender. ??No CVA tenderness. ?? Updated vaginal exam is deferred??to the operating room. ?? Lower extremities show no significant edema. ?? Neuro nonfocal. ??Cognitive impairment. Assessment/Plan 1.??Labial fusion??Q52.5 Severe labial fusion??likely leading to vaginal voiding and possibly contributory to her urinary incontinence. ??While no guarantees can be given that the incontinence will improve??after release of the labial fusion, it is strongly recommended.?? Access to her urethra for catheterization would be ??extremely difficult should she require hospitalization and require a catheter for medical management.?? Ultimately, the vagina could close altogether.?? There is an increased risk of introital colonization with her current anatomy. ?? Potential risks, benefits, and alternatives have been discussed at length, including but not limited to anesthetic risk, bleeding, infection, pain, scar tissue,??recurrent??fusion??(postoperative care will be emphasized), and need for additional procedures. ??All questions were answered and informed consent was obtained. 2.??Atrophic vulvovaginitis??N95.2 Severe vaginal atrophy. ??Topical estrogen will be necessary??postoperatively. 3.??Total urinary incontinence??N39.498 Total urinary incontinence, likely multifactorial.?? Cystoscopy will assess for CIS or intravesicalneoplasm.?? Vaginal voiding might contribute. ??We will reassess after surgery. 4.??Dementia??F03.90 Complicating care. Problem List/Past Medical History Ongoing Abnormal laboratory test result Alzheimer's dementia Callus of foot Constipation Dementia Depression Family history of Alzheimer's disease Family history of colon cancer Follicle cyst Heart murmur History of calculus of kidney History of Lyme disease Hyperlipidemia Hypertension Impingement syndrome of left shoulder Joint pain Nocturia Onychomadesis Postmenopausal status (age-related) (natural) Slurred speech Type 2 diabetes mellitus Urinary incontinence Urolithiasis Word finding difficulty Historical No qualifying data Procedure/Surgical History ???Colonoscopy???None Medications Inpatient No active inpatient medications Home aspirin 81 mg oral delayed release tablet, Oral atorvastatin 10 mg oral tablet, 10 mg= 1 tab, Oral, Daily calcium (as carbonate) 500 mg oral tablet donepezil 10 mg oral tablet, 10 mg= 1 tab, Oral, every night at bedtime Januvia 25 mg oral tablet, 2 tablets, Oral, Daily lisinopril 10 mg oral tablet magnesium oxide 250 mg oral tablet, 500 mg= 2 tab, Oral, Daily metFORMIN 1000 mg oral tablet MiraLax oral powder for reconstitution, 17 g, Oral, Daily Myrbetriq 50 mg oral tablet, extended release, 50 mg= 1 tab, Oral, Daily Namenda 10 mg oral tablet Vitamin B12 1000 mcg oral tablet, 1000 mcg= 1 tab, Oral, Daily Allergies amoxicillin??(Unknown) penicillins??(Other) Social History Alcohol Past- Comments: Pt quit years ago Electronic Cigarette/Vaping Electronic Cigarette Use: Never. Employment/School Retired Home/Environment Lives with Alone. Living situation: Home/Independent. Home equipment: Daughter checks in on Pt. Substance Use Never Tobacco Former tobacco user Tobacco Use:. Total pack years: 2. Immunizations Vaccine Date Status influenza virus vaccine, inactivated 07/09/2014 Recorded Electronically Signed on 04/13/23 06:53 AM Adilson Dickson MD Patient Care team information Care Team Personnel Name: Tiana Mcneal NP Position: No Access Member Role: Informed Provider Address: Address: [id number] [place] [address] Care Team Related Persons Name: ANDRIY URIBE Address: Home
--- OUTSIDE RECORDS SUMMARY | 2023-09-21 13:12 | XMS_ITS | Continuity of Care Document ---
Author Name Unknown Organization [facility] Address [address] [place] [address] Care Team Providers Care Clinical Trials Manager Name Role Phone Tiana Mcneal Primary Care Physician [phone] Encounter NCTY_GA Date(s): 02/13/23 - 02/13/[address] [address] Discharge Disposition: Home or Self Care Attending Physician: Adilson Dickson MD Admitting Physician: Adilson Dickson MD Allergies, Adverse Reactions, Alerts Substance Reaction Severity Status amoxicillin 1 Unknown Unknown Active penicillins Other Unknown Active 1Outside Source Comment: CIS - SOB, Edema, CIS - SOB, Edema Immunizations Given and Recorded Vaccine Date Status Refusal Reason influenza virus vaccine, inactivated 07/09/14 Uriah rded Problem List Condition Confirmation Course Effective Dates Status Health St atus Informant History of calculus of kidney Confirmed 02/17/16 Active Type 2 diabetes mellitus Confirmed 03/14/12 Active Results Orders for Microbiology Reports Name Date Urine Culture 02/13/23 Microbiology Reports TEST:Urine Culture STATUS:Order in Progress BODY SITE: SOURCE:Urine, Clean Catch COLLECTED DATE/TIME:02/13/23 5:47 PM PRELIMINARY REPORT 10,000 - 100,000 cfu/ml Mixed Gram Positive [place] Social History Social History Type Response Tobacco Former tobacco user Tobacco Use:. Total pack years: 2. Sex Female Patient Care team information Care Team Personnel Name: Tiana Mcneal SHEET METAL WORKER HELPER Position: No Access Member Role: Primary Care Physician Address: Address: [facility] [address] [place], [place] [address] Care Team Related Persons Name: ANDRIY URIBE Address: Home
[2023-09-21 17:11] LABS: ALT 20 U/L (14-59); AST 20 U/L (15-37); Albumin 4.1 g/dL (3.4-5.0); Alkaline Phosphatase 52 U/L (46-116); Anion Gap 4.4 mmol/L (3-11); BUN 19 mg/dL (7-18); Bilirubin, Total 0.4 mg/dL (0.2-1.0); CO2 32.6 mmol/L (21.0-32.0); CREATININE 0.9 mg/dL (0.55-1.02); Calcium 10.2 mg/dL (8.5-10.1); Chloride 101 mmol/L (98-107); Estimated GFR 67.92 (mL/min/1.73m2); Glucose 205 mg/dL (74-106); HDL Cholesterol 78 mg/dL (40-60); LDL CHOLESTEROL 58 mg/dL (<100); Potassium 4.5 mmol/L (3.5-5.1); Sodium 138 mmol/L (136-145); Total Protein 7.9 g/dL (6.4-8.2)
[2023-09-21 17:16] LABS: Hemoglobin A1C 7.7 % (<5.7)
[2023-09-21 17:27] LABS: Creatine Kinase 62 U/L (26-192)
== END 2023-09-21 13:11 | disposition home or self-care (01) ==
LOC: NCHCN 13:10
PROVIDERS: PCP Nurse Practitioner Family; Visit Provider Nurse Practitioner Family
DX: E11.9 Type 2 diabetes mellitus without complications (principal)
CPT/HCPCS: 80053; 82550; 83721; 83036; 83718

== ENCOUNTER → 2024-02-01 13:47 | Outpatient (BNVA) | payer MEDICARE, SELFPAY | PROVIDERS: PCP Nurse Practitioner Family; Referring Provider Nurse Practitioner Family; Visit Provider Nurse Practitioner Adult Health | DX: G30.9 Alzheimer's disease, unspecified (principal); F02.80 Dementia in other diseases classified elsewhere, unspecified severity, without behavioral disturbance, psychotic disturbance, mood disturbance, and anxiety | CPT/HCPCS: 99213 ==

== ENCOUNTER 2024-02-22 14:39 | Outpatient (REF) | payer MEDICARE, SELFPAY ==
[2024-02-22 18:52] LABS: Bilirubin Negative (Negative); Blood Negative (Negative); Clarity Clear (Clear); Glucose 500 mg/dL (Negative); Ketones Negative (Negative); Leukocyte Esterase Negative (Negative); Nitrite Negative (Negative); Specific Gravity 1.025 (1.005-1.025); Urobilinogen 0.2 mg/dL (Up to 0.2); pH 5.5 (5-8)
== END 2024-02-22 14:40 | disposition home or self-care (01) ==
LOC: NCHCN 14:39
PROVIDERS: PCP Nurse Practitioner Family; Visit Provider Nurse Practitioner Family
DX: R73.9 Hyperglycemia, unspecified (principal); B96.89 Other specified bacterial agents as the cause of diseases classified elsewhere
CPT/HCPCS: 81003; 87086

== ENCOUNTER 2024-09-19 13:06 | Outpatient (REF) | payer MEDICARE, SELFPAY ==
--- OUTSIDE RECORDS SUMMARY | 2024-09-19 13:08 | XMS_ITS ---
Author Organization Unknown ALLERGIES AND ADVERSE REACTIONS No information ASSESSMENT No information CHIEF COMPLAINT No information MEDICATIONS No information OBJECTIVE DATA No information PHYSICAL EXAMINATION No information TREATMENT PLAN Planned Care Start Date Provider Encounter for Check-up [id number] PROBLEMS No information RESULTS No information REVIEW OF SYSTEMS No information SUBJECTIVE DATA No information VITAL SIGNS No information
--- OUTSIDE RECORDS SUMMARY | 2024-09-19 13:09 | XMS_ITS | Encounter Summary ---
Author Organization [facility] Address [address] [place] [address] Care Team Providers Care Molecular Biology Director Name Role Phone Angie Mantilla MD Primary Care Provider Unavailable Encounter Details Date Type Department Care Team (Late st Contact Info) Description 01/05/2018 Historical Results Only [facility] Radiology Results [address] [place] [address] Joseline Shoemaker MD [address] [facility] [address] [place] [address] Social History Tobacco Use Types Packs/Day Years Used Date Smoking Tobacco: Never Assessed Comments Unknown Sex and Gender Information Value Date Recorded Sex Assigned at Not on file Legal Sex Female 18:12 EST Gender Identity Not on file Sexual Orientation Not on file documented as of this encounter Plan of Treatment Not on file documented as of this encounter Procedures Procedure Name Priority Date/Time Associated Diagnosis Comments XR LUMBAR SPINE 2-3 VIEWS 01/05/2018 13:20 EDT VIT D, 25-HYDROXY - [facility] Routine 01/05/2018 12:21 EDT ANTI JEREMIAH ANTIBODIES - [facility] Routine 01/05/2018 12:21 EDT ANTI GLIADIN IGG & IGA AB - CV Routine 01/05/2018 12:21 EDT LYME AB Routine 01/05/2018 12:21 EDT ZZLYME IMMUNOBLOT CONFIRMATION Routine 01/05/2018 12:21 EDT SYNOVIAL FLD CC/DIFF - [facility] Routine 01/05/2018 11:00 EDT SYNOVIAL FLUID CRYSTALS Routine 01/05/2018 11:00 EDT documented in this encounter Results * XR LUMBAR SPINE 2-3 VIEWS (01/05/2018 13:20 EDT) Anatomical Region Laterality Modality Other 01/05/2018 13:2 0 EDT Narrative 01/05/2018 13:23 EDT ? EXAM: RADIOLOGY/LUMBAR SPINE 2 OR 3 VIEWS EX. D/ (1239) ? CLINICAL INFORMATION: ? M54.5 MIDLINE LBP W/O SCIATICA ? INDICATION: M54.5 MIDLINE LBP W/O SCIATICA M54.5, M25.461, R19.7, ? M25.462 ? TECHNIQUE: Two-view lumbar spine. ? COMPARISON: None ? FINDINGS: ? Mild convex rightward curvature of lumbar spine is centered at L3. ? The posterior spinal alignment is anatomic. There is disc ? degeneration throughout the lumbar spine. The findings are most ? advanced at L4-5 and L5-S1 where disc space narrowing is ? moderate/severe and osteophytic ridging is present. There is also ? hypertrophic facet arthrosis of the lower lumbar levels. ? IMPRESSION: ? Degenerative spondylosis of the lumbar spine, most advanced at L4-L5 ? and L5-S1. ? REPORT SIGNED IN OTHER VENDOR SYSTEM 01/05/2018 ?Reported By: Adilson Garzon MD ? CC: ? Transcribed Date/Time: 01/05/2018 (1323) ? Pharmaceutical Operator: ? Printed Date/Time: 03/28/2019 (7425) ? PAGE 1 ? Signed Report ? Procedure Note Adilson Garzon E - 08/14/2019 EXAM: RADIOLOGY/LUMBAR SPINE 2 OR 3 VIEWS EX. D/ (1239) CLINICAL INFORMATION: M54.5 MIDLINE LBP W/O SCIATICA INDICATION: M54.5 MIDLINE LBP W/O SCIATICA M54.5, M25.461, R19.7, M25.462 TECHNIQUE: Two-view lumbar spine. COMPARISON: None FINDINGS: Mild convex rightward curvature of lumbar spine is centered at L3. The posterior spinal alignment is anatomic. There is disc degeneration throughout the lumbar spine. The findings are most advanced at L4-5 and L5-S1 where disc space narrowing is moderate/severe and osteophytic ridging is present. There is also hypertrophic facet arthrosis of the lower lumbar levels. IMPRESSION: Degenerative spondylosis of the lumbar spine, most advanced atL4-L5 and L5-S1. REPORT SIGNED IN OTHER VENDOR SYSTEM 01/05/2018 Reported By: Adilson Garzon MD CC: Transcribed Date/Time: 01/05/2018 (9283) Pharmaceutical Operator: Printed Date/Time: 03/28/2019 (1008) PAGE 1 Signed Report us Joseline Shoemaker MD IMG DIAGNOSTIC IMAGING O RDERABLES Final Result * VIT D, 25-HYDROXY - [facility] (01/05/2018 12:21 EDT) VIT D, 25 HYDROXY - [facility] 32.7 30 - 100 ng/ml 01/05/2018 13:27 EDT [facility] Comment: ? 25-Hydroxy D Total (D2+D3) ?Expected Values Deficient: ?<20 ng/ml Insufficient: ? 20- <30 ng/ml Sufficient: ? 30-100 ng/ml Potential intoxication: >100 ng/ml 01/05/2018 12:2 1 EDT 01/05/2018 12:21 EDT Narrative [facility] - 01/05/2018 13:27 EDT Does PT Have a Latex Allergy? NO Joseline Shoemaker MD CHEMISTRY & BLOOD GAS OR DERABLES Final Result Performing Organization Address [facility] de Phone Number [facility] * LYME AB (01/05/2018 12:21 EDT) Lyme Ab IgG POSITIVE 01/05/2018 20:31 EDT [facility] Comment:Reflex to Western Bl ot has been ordered. Lyme Ab NEGATIVE 01/05/2018 20:31 EDT [facility] 01/05/2018 12:2 1 EDT 01/05/2018 12:21 EDT Narrative [facility] - 01/05/2018 20:31 EDT Does PT Have a Latex Allergy? NO Joseline Shoemaker MD IMMUNOLOGY AND SEROLOGY ORDERABLES Final Result Performing Organization Address [facility] de Phone Number [facility] * ANTI GLIADIN IGG & IGA AB - [facility] (01/05/2018 12:21 EDT) GLIADIN IGA ANTIBODY - [facility] <10.0 () U 01/09/2018 7:30 EDT [facility] Comment: REFERENCE VALUE <20.0 (Negative) GLIADIN IGG ANTIBODY - [facility] <10.0 () U 01/09/2018 7:30 EDT [facility] Comment: REFERENCE VALUE <20.0 (Negative) Test Performed by: [facility] - [address] [address] 01/05/2018 12:2 1 EDT 01/05/2018 12:21 EDT Narrative [facility] - 01/09/2018 7:30 EDT Does PT Have a Latex Allergy? NO us Joseline Shoemaker MD CHEMISTRY & BLOOD GAS OR DERABLES Final Result [facility] * ANTI JEREMIAH ANTIBODIES - [facility] (01/05/2018 12:21 EDT) JEREMY 1 AB IGG, S - [facility] <0.2 () U 01/09/2018 7:30 [facility] Comment: REFERENCE VALUE <1.0 (Negative) Test Performed by: [facility] - [address] [address] PHOTOGRAPHIC PROCESS WORKER AB IGG,S - [facility] 0.4 () U 01/09/2018 7:30 T [facility] Comment: REFERENCE VALUE <1.0 (Negative) SCL 70 AB, IGG,S - [facility] <0.2 () U 01/09/2018 7:30 [facility] Comment: REFERENCE VALUE <1.0 (Negative) ORALIA AB IGG - [facility] <0.2 () U 01/09/2018 7:30 EDT [facility] Comment: REFERENCE VALUE <1.0 (Negative) SS-A/RO AB, IGG,S - [facility] <0.2 () U 01/09/2018 7:30 EDT [facility] Comment: REFERENCE VALUE <1.0 (Negative) SS-B/LA AB,IGG,S - [facility] <0.2 () U 01/09/2018 7:30 [facility] Comment: REFERENCE VALUE <1.0 (Negative) 01/05/2018 12:2 1 EDT 01/05/2018 12:21 EDT Narrative [facility] - 01/09/2018 7:30 EDT Does PT Have a Latex Allergy? NO us Joseline Shoemaker MD CHEMISTRY & BLOOD GAS OR DERABLES Final Result [facility] * LYME IMMUNOBLOT CONFIRMATION (01/05/2018 12:21 EDT) Lyme IGG Bands SEE COMMENTS () kDa 01/11/20 18 20:44 T [facility] Comment:p93, p66, p58, p45, p41, p39, p30, p28, p23, p18 Lyme IGM Band(s) p23 () kDa 01/11/20 18 20:44 EDT [facility] Lyme IgM ImmunoBlot Negative () 01/10/2018 20:44 EDT [facility] Comment: Reference Range: Negative Result will be sent to appropriate Department of Health Lyme Immunoblot Interpretation SEE COMMENTS () 01/10/2018 20:44 EDT [facility] Comment: 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 ?? CDC criteria requires >=5 bands for IgG or >=2 bands for IgM for the Western blot to be considered postiive. ??Bands may be detected in patients without Lyme disease. Patterns not meeting CDC criteria should be interpreted with caution. ?? Per CDC guidelines, Western blot testing should only be performed on specimens that are positive or equivocal by Immunoassay. Performing only the Western blot increases the possibility of false positive results. Results should be considered positive only when both the immunoassay and the Western blot are positive. Test Performed by: [place] [address] Salvage Winder And Inspector: Ger Steele MD , Ph D Lyme IGG ImmunoBlot Positive () 01/10/2018 20:44 EDT [facility] Comment:Reference Range: Neg ative 01/05/2018 12:2 1 EDT 01/05/2018 12:21 EDT us Joseline Shoemaker MD IMMUNOLOGY AND SEROLOGY ORDERABLES Final Result Performing Organization Address [facility]/ZIP Co de Phone Number [facility] * SYNOVIAL FLUID CRYSTALS - [facility] (01/05/2018 11:00 EDT) EXTRACELLULAR - [facility] Rare 01/05/2018 13:16 EDT [facility] INTRACELLULAR - [facility] Not Present 01/05/2018 13:16 EDT [facility] SYNOVIAL FLD CRYSTALS - [facility] Positive 01/05/2018 13:16 EDT [facility] Comment:Calcium pyrophosphat e crystals. 01/05/2018 11:0 0 EDT 01/05/2018 12:32 EDT us Joseline Shoemaker MD CHEMISTRY & BLOOD GAS OR DERABLES Final Result Performing Organization Address [facility]/ZIP Co de Phone Number [facility] * (ABNORMAL) SYNOVIAL FLD CC/DIFF - [facility] (01/05/2018 11:00 EDT) SYNOVIAL FLD LYMPHOCYTE - CV 11 % 01/05/2018 14:12 EDT [facility] SYNOVIAL FLD MONOCYTE - CV 22 % 01/05/2018 14:12 EDT [facility] SYNOVIAL FLD SOURCE - CV KNEE UNSPECIFIED 01/05/2018 14:15 EDT [facility] SYNOVIAL FLD POLY - CV 67 % 01/05/2018 14:12 EDT [facility] SYNOVIAL FLD WBC - [facility] 8,166(H) 0 - 200 /ul 01/05/2018 13:34 EDT [facility] 01/05/2018 11:0 0 EDT 01/05/2018 12:32 EDT us Joseline Shoemaker MD CHEMISTRY & BLOOD GAS OR DERABLES Final Result [facility] documented in this encounter Visit Diagnoses Not on filedocumented in this encounter Care Teams Molecular Biology Director Relationship Specialty Start Date End Date Angie Mantilla MD PCP - General 08/22/15 documented as of this encounter
--- OUTSIDE RECORDS SUMMARY | 2024-09-19 13:09 | XMS_ITS | Encounter Summary ---
Author Organization [facility] Address [facility] [place] [address] Care Team Providers Care Arborer Name Role Phone Angie Mantilla MD Primary Care Provider [phone] Reason for Visit * Reason Comments Diabetes Encounter Details Date Type Department Care Team (Late st Contact Info) Description 03/01/2017 3:00 PM EDT Office [place] [address] Rut Pinon APRN [facility] [place] [address] Type 2 diabetes mellitus without complication, with long-term current use of insulin Social History Tobacco Use Types Packs/Day Years Used Date Smoking Tobacco: Former Cigarettes Q uit: 03/02/1975 Smokeless Tobacco: Never Alcohol Use Standard Drinks/Week Comments Not Asked 0 (1 standard drink = 0.6 oz pur e alcohol) Sex and Gender Information Value Date Recorded Sex Assigned at Not on file Gender Identity Not on file Sexual Orientation Not on file documented as of this encounter Last Filed Vital Signs Vital Sign Reading Time Taken Comments Blood Pressure 128/76 03/01/2017 3:18 PM EDT Pulse - - Temperature - - Respiratory Rate - - Oxygen Saturation - - Inhaled Oxygen Concentration - - Weight 79.3 kg (174 lb 12.8 oz) 03/01/2017 3:18 PM EDT Height 163.8 cm (5' 4.49) 03/01/2017 3:18 PM ED T Body Mass Index 29.55 03/01/2017 3:18 PM EDT documented in this encounter Patient Instructions * Patient Instructions* Rut Pinon APRN - 03/01/2017 3:00 PM EDT Will schedule follow-up as needed documented in this encounter Progress Notes * Rut Pinon APRN - 03/01/2017 3:00 PM EDT REASON FOR VISIT: Follow type 2 DM in continued good control. BRIEF HISTORY: Presents for annual followup. States she is worried about coverage of her medicines now that she is on medicare. DATE OF DIAGNOSIS OF DIABETES: 2000. DIABETES REGIMEN: Victoza 1.8 mg daily, metformin 1000 mg twice a day, Levemir 20 units twice a day, Humalog up to 10 units before meals 3 times a day. 24-HOUR MEAL PLAN: Breakfast is an egg and an Tunisian muffin. Lunch is usually a sandwich. Evening meal is protein potatoes and vegetable. PHYSICAL ACTIVITY: Walking. PAST MEDICAL HISTORY: Type 2 DM, hyperlipidemia. PAST SURGICAL HISTORY: Tubal ligation. REVIEW OF SYSTEMS: Enjoying correction. Eyes: No recent vision changes. No recent headaches or chest pain or shortness of breath. No recent GI symptoms. Appetite is less. Sleep pattern is good. Extremities are good. PHYSICAL EXAM: Appearance: She appears in excellent health, pleasant, has good eye contact. Blood pressure 128/76. Eyes: No retinopathy with green light exam. Neck: No thyromegaly or lymphadenopathy. Heart: Regular rate and rhythm. Lungs are clear to auscultation. Feet: Skin is normal. Pulses are normal. Neuro: Normal sensation to 10 g of pressure. Hemoglobin A1c 6.2%. Previous was 7.3%. IMPRESSION AND PLAN: DM type 2 in excellent control. Prescription has already been sent for Victoza. Prescription sent for metformin. Patient is running out of test strips. Gave her a written prescription for the OneTouch and also gave her a Verio OneTouch meter. She is going to decide whether she wants to fill the prescriptions of the Verio or the OneTouch strips. Gave her written prescriptions for each of them. Explained to patient that if insulin gets too costly while on medicare she can change to NPH ReliOn brand and regular insulins. She prefers to return to office as needed or as advised by PCP. This was a 35-minute office visit with 23 minutes spent counseling [id number] with patient in the management of glucose levels, discussing other insulin options that are less costly, doing prescriptions for the test strips, metformin and ANNETTE inhibitor. documented in this encounter Plan of Treatment Not on file documented as of this encounter Visit Diagnoses Diagnosis Type 2 diabetes mellitus without complication, with long-term current use of insulin documented in this encounter Care Teams Arborer Relationship Specialty Start Date End Date Angie Mantilla MD [facility] [address] [place] [address] PCP - General 10/15/10 07/05/18 documented as of this encounter
--- OUTSIDE RECORDS SUMMARY | 2024-09-19 13:09 | XMS_ITS | Encounter Summary ---
Author Organization [facility] Address [facility] [place] [address] Care Team Providers Care Certified Endoscopy Technician Name Role Phone Angie Mantilla MD Primary Care Provider [phone] Reason for Visit * Reason Onset Date Comments Medication Refill 04/17/2017 Encounter Details Date Type Department Care Team (Late st Contact Info) Description 04/17/2017 [place] [address] Rut Pinon, [facility] [place] [address] Social History Tobacco Use Types Packs/Day Years [...] documented as of this encounter Visit Diagnoses Not on filedocumented in this encounter Care Teams Certified Endoscopy Technician Relationship Specialty Start Date End Date Angie Mantilla MD [facility] D [address] [place] [address] PCP - General 10/15/10 07/05/18 documented as of this encounter
--- OUTSIDE RECORDS SUMMARY | 2024-09-19 13:09 | XMS_ITS | Encounter Summary ---
Author Organization [facility] [place] [address] Care Team Providers Care Spanish Moss Picker Name Role Phone Tiana Mcneal MANAGER INVENTORY CONTROL Primary Care Provider [phone] Reason for Visit * Reason Comments Medication Refill Encounter Details Date Type Department Care Team (Late st Contact Info) Description 05/26/2018 Ref[place] [address] Rut Pinon MANAGER INVENTORY CONTROL [facility] [address] [place] [address] Social History Tobacco Use Types Packs/Day Years [...] on filedocumented in this encounter Care Teams Spanish Moss Picker Relationship Specialty Start Date End Date Tiana Mcneal APRN PCP - General Family Medicine 10/20/20 documented as of this encounter
--- OUTSIDE RECORDS SUMMARY | 2024-09-19 13:09 | XMS_ITS | Encounter Summary ---
Author Organization [facility] Address [facility] [place] [address] Care Team Providers Care Hand Sizer Name Role Phone Angie Mantilla MD Primary Care Provider [phone] Reason for Visit * Reason Comments Medication Refill Encounter Details Date Type Department Care Team (Late st Contact Info) Description 01/21/2017 Ref[place] [address] Rut Pinon [facility] [place] [address] Social History Tobacco Use Types Packs/Day Years [...] on filedocumented in this encounter Care Teams Hand Sizer Relationship Specialty Start Date End Date Angie Mantilla MD [facility] D [address] [place] [address] PCP - General 10/15/10 07/05/18 documented as of this encounter
--- OUTSIDE RECORDS SUMMARY | 2024-09-19 13:09 | XMS_ITS | Encounter Summary ---
Author Organization [facility] Address [facility] [place] [address] Care Team Providers Care Cable Television Technician Name Role Phone Tiana Mcneal APRN Primary Care Provider [phone] Reason for Visit * Reason Comments Skin Check * Consultation (Routine) - Specialty Diagnoses / Procedures Referred By Madonna lozano Referred To Contact Dermatology Diagnoses Melanocytic nevi, unspecified Nevus; Est. Patient-Notes Received Procedures Consult Tiana Mcneal APRN [address] [place] [address] Ugo Carrizales MD [address] [place] [address], [facility] [address] Referral ID Status Reason Start Date Expiration Date V isits Requested Visits Authorized [id number] Consult, Test & Treat PCP Updated and/or Approved 09/04/2020 03/04/2021 6 6 Encounter Details Date Type Department Care Team (Late st Contact Info) Description 10/20/2020 3:00 PM EST Office Visit Dermatology at [address] [address] Ugo Carrizales MD [address] [place] [address], [facility] [address] Nevus Social History Tobacco Use Types Packs/Day Years [...] on file documented as of this encounter Progress Notes * Ugo Carrizales MD - 10/20/2020 3:00 PM EST Problem: New patient, initial visit, skin check Audra is a 69-year-old woman who is concerned about a mole in the suprapubic area on the right andalso on her right anterior hip upper abdomen that have somewhat irregular appearance. She would like to have this checked. Patient is not aware of any personal or family history of skin cancer/melanoma. Physical examination reveals a pleasant 69-year-old woman who has type III Good pigmentation, graying dark hair, and brown eyes. 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 She has a compound versus intradermal nevus on the right hip. She has another compound was intradermal nevus with a junctional component in the right mons pubis area. Careful examination of the scalp the face the neck the chest the back the hands the arms forearms the thighs and the calves is otherwise benign. There is no evidence of any malignant or previous lesions. Assessment and plan: Benign skin examination 1. Patient reassured about her benign skin examination 2. Reassured about benign nevi including the newly noted nevus in the right mons pubis area. 3. Recommend return to clinic on a as needed basis CC: Tiana Mcneal APRN documented in this encounter Plan of Treatment Not on file documented as of this encounter Visit Diagnoses Diagnosis Nevus Benign neoplasm of skin, site unspecified documented in this encounter Care Teams Cable Television Technician Relationship Specialty Start Date End Date Tiana Mcneal APRN PCP - General Family Medicine 10/20/20 documented as of this encounter
--- OUTSIDE RECORDS SUMMARY | 2024-09-19 13:09 | XMS_ITS | Encounter Summary ---
Author Organization [facility] Address [facility] [place] [address] Care Team Providers Care Collar Fuser Name Role Phone Angie Mantilla MD Primary Care Provider [phone] Reason for Visit * Reason Comments Medication Refill Encounter Details Date Type Department Care Team (Late st Contact Info) Description 08/14/2017 Ref[place] [address] Rut Pinon [facility] [address] ENDOCRIN[place] [address] Social History Tobacco Use Types Packs/Day Years [...] on filedocumented in this encounter Care Teams Collar Fuser Relationship Specialty Start Date End Date Angie Mantilla MD [facility] [address] [place] [address] PCP - General 10/15/10 07/05/18 documented as of this encounter
--- OUTSIDE RECORDS SUMMARY | 2024-09-19 13:09 | XMS_ITS | Encounter Summary ---
Author Organization [facility] Address [address] [place] [address] Care Team Providers Care Firmware Test Engineer Name Role Phone Angie Mantilla MD Primary Care Provider Unavailable Encounter Details Date Type Department Care Team (Latest Contact Info) Description 01/05/2018 15:02 EDT - 01/05/2018 23:59 EDT Hospital Encounter [facility] [address] [place] [address] Unknown, Provider, MD Discharge Disposition: Home or Self Care Social History Tobacco Use Types Packs/Day Years Used Date Smoking Tobacco: Never Assessed Comments Unknown Sex and Gender Information Value Date Recorded Sex Assigned at Not on file Legal Sex Female 18:12 EST Gender Identity Not on file Sexual Orientation Not on file documented as of this encounter Discharge Disposition Disposition Code Departure Means Destination Home or Self Residential documented in this encounter Plan of Treatment Not on file documented as of this encounter Visit Diagnoses Not on filedocumented in this encounter Care Teams Firmware Test Engineer Relationship Specialty Start Date End Date Angie Mantilla MD PCP - General 08/22/15 documented as of this encounter
--- OUTSIDE RECORDS SUMMARY | 2024-09-19 13:09 | XMS_ITS | Encounter Summary ---
Author Organization [facility] Address [address] [place] [address] Care Team Providers Care Director Enterprise Systems Name Role Phone Angie Mantilla MD Primary Care Provider Unavailable Encounter Details Date Type Department Care Team (Late st Contact Info) Description 08/31/2015 Results Only [facility] [phone] Angie Mantilla MD Social History Tobacco Use Types Packs/Day Years [...] Procedure Name Priority Date/Time Associated Diagnosis Comments PAP TEST- RESULT ONLY Routine 08/31/2015 0:00 EST documented in this encounter Results * PAP TEST- RESULT ONLY (08/31/2015 0:00 EST) Pathology Report: CYTOPATHOLOGY REPORT Reports generated via electronic interface contain original data; however they are lacking the format of the original report. Caution should be taken when reading/interpreti ng unformatted reports. Name: ? AUDRA SIMS ? Accession #: ? [id number] ? : ? 1950 (Age: 64) ??F ?Collect Date: ? 08/31/2015 ? Location: ? [facility] ? Receive Date: ? 09/02/2015 ? Provider: ANGIE MANTILLA MD Copy to: ? Final Report SPECIMEN ADEQUACY ? Satisfactory for Evaluation - transformation zone component present GENERAL CATEGORIZATION ? Negative for Intraepithelial Lesion or Malignancy ?? Last Menstrual Period: Yrs Treatment History: None Specimen/Source: ??Pap Test, Cervix, ThinPrep Imaging System with manual evaluation Document reviewed and electronically signed by: ? JELENA Rasheed(ASCP) ? Report ??Date: 09/04/2015 16:13 HPV with Pap Test ? Date Ordered: ? 09/04/2015 ? Status: ?? Signed Out ?Date Complete: ? 09/08/2015 ? By: ??System Interface ? Date Reported: ? 09/08/2015 ? Interpretation RESULT: Negative for HPV. No E6 or E7 mRNA is detected from HPV types 16,18,31,33,35, 39,45,51,52,56,58, 59,66, and 68 by tmd teacher assistant mediated amplification. Comments Document reviewed and electronically signed by: ? System Interface ? Report date: 09/08/2015 By the signature above, the attending physician certifies that he/she has personally conducted a gross and/or microscopic examination of the described specimens and rendered or confirmed the above diagnosis. End of Report [facility] 08/31/2015 09/02/2015 us Angie Mantilla MD PATHOLOGY ORDERABLES Fi nal Result [facility] [address] [place] [address] documented in this encounter Visit Diagnoses Not on filedocumented in this encounter Care Teams Director Enterprise Systems Relationship Specialty Start Date End Date Angie Mantilla MD PCP - General 08/22/15 documented as of this encounter
--- OUTSIDE RECORDS SUMMARY | 2024-09-19 13:09 | XMS_ITS | Encounter Summary ---
Author Organization [facility] Address [address] [place] [address] Care Team Providers Care Chief Jailer Name Role Phone Unavailable Primary Care Provider Unavailabl e Encounter Details Date Type Department Care Team (Late st Contact Info) Description 10/04/[address] [facility] [address] [place] [address] Angie Mantilla MD Social History Tobacco Use [...] Procedure Name Priority Date/Time Associated Diagnosis Comments CYTOPATHOLOGY Routine 10/04/2000 0:00 EST documented in this encounter Results * CYTOPATHOLOGY (10/04/2000 0:00 EST) Pathology Report: CYTOPATHOLOGY REPORT Reports generated via electronic interface contain original data; however they are lacking the format of the original report. Caution should be taken when reading/interpreti ng unformatted reports. Name: ? AUDRA SIMS ? Accession #: ? [id number] : ? 1950 (Age: 49) ??F ?Collect Date: ? 10/04/2000 Location: ? [facility] ? Receive Date: ? 10/06/2000 Provider: ?ANGIE MANTILLA MD Copy to: ? Specimen/Source: ?ThinPrep Pap Test, Endocervix Last Menstrual Period: ? 09/14/00 Previous Gynecologic Pathology: ? Yes: years ago ? SPECIMEN ADEQUACY ? Satisfactory for evaluation. GENERAL CATEGORIZATION ? Benign Cellular Changes DESCRIPTIVE DIAGNOSIS ? Predominance of coccobacilli present consistent with shift in vaginal lee. ? Document reviewed and electronically signed by: ? Destiny Mann [facility](ASCP) ? Report Date: ??10/06/2000 15:17 End of Report [facility] 10/04/2000 10/06/2000 us Angie Mantilla MD PATHOLOGY ORDERABLES Fi nal Result [facility] [address] [place] [address] documented in this encounter Visit Diagnoses Not on filedocumented in this encounter
--- OUTSIDE RECORDS SUMMARY | 2024-09-19 13:09 | XMS_ITS | Encounter Summary ---
Author Organization [facility] Address [facility] [place] [address] Care Team Providers Care Alfalfa Dehydrator Operator Name Role Phone Tiana Mcneal LOGGING TRACTOR OPERATOR SWAMP Primary Care Provider [phone] Reason for Visit * Reason Comments Medication Refill Encounter Details Date Type Department Care Team (Late st Contact Info) Description 08/13/2017 [place] [address] Rut Pinon LOGGING TRACTOR OPERATOR SWAMP [facility] [place] [address] Social History Tobacco Use Types Packs/Day Years [...] on filedocumented in this encounter Care Teams Alfalfa Dehydrator Operator Relationship Specialty Start Date End Date Tiana Mcneal APRN PCP - General Family Medicine 10/20/20 documented as of this encounter
--- OUTSIDE RECORDS SUMMARY | 2024-09-19 13:09 | XMS_ITS | Encounter Summary ---
Author Organization [facility] Address [facility] [place] [address] Care Team Providers Care Event Representative Name Role Phone Angie Mantilla MD Primary Care Provider [phone] Reason for Visit * Reason Comments Medication Refill Encounter Details Date Type Department Care Team (Late st Contact Info) Description 04/10/2017 Ref[place] [address] [facility] [place] [address] Social History Tobacco Use Types Packs/Day Years [...] on filedocumented in this encounter Care Teams Event Representative Relationship Specialty Start Date End Date Angie Mantilla MD [facility] [address] [place] [address] PCP - General 10/15/10 07/05/18 documented as of this encounter
--- OUTSIDE RECORDS SUMMARY | 2024-09-19 13:09 | XMS_ITS | Encounter Summary ---
Author Organization [facility] Address [facility] [place] [address] Care Team Providers Care Mental Health Associate Name Role Phone Angie Mantilla MD Primary Care Provider [phone] Reason for Visit * Reason Comments Medication Refill Encounter Details Date Type Department Care Team (Late st Contact Info) Description 03/08/2017 Refill [place] [address] Rut Pinon [facility] [place] [address] Social History Tobacco Use Types Packs/Day Years [...] on filedocumented in this encounter Care Teams Mental Health Associate Relationship Specialty Start Date End Date Angie Mantilla MD [facility] [address] [place] [address] PCP - General 10/15/10 07/05/18 documented as of this encounter
--- OUTSIDE RECORDS SUMMARY | 2024-09-19 13:09 | XMS_ITS | Encounter Summary ---
Author Organization [facility] Address [facility] [place] [address] Care Team Providers Care General Engineer Name Role Phone Angie Mantilla MD Primary Care Provider [phone] Reason for Visit * Reason Comments Medication Refill Encounter Details Date Type Department Care Team (Late st Contact Info) Description 11/09/2017 [place] [address] Rut Pinon [facility] [place] [address] Social History Tobacco Use Types Packs/Day Years [...] on filedocumented in this encounter Care Teams General Engineer Relationship Specialty Start Date End Date Angie Mantilla MD ANGY D [address] [place] [address] PCP - General 10/15/10 07/05/18 documented as of this encounter
--- OUTSIDE RECORDS SUMMARY | 2024-09-19 13:09 | XMS_ITS | Encounter Summary ---
Author Organization [facility] Address [facility] [place] [address] Care Team Providers Care Crystal Evaluator Name Role Phone Angie Mantilla MD Primary Care Provider [phone] Encounter Details Date Type Department Care Team (Late st Contact Info) Description 03/21/2017 Telephone Endocrinology at [facility] [place] [address] Leticia Hagan, RN Social History Tobacco Use Types Packs/Day Years [...] on file documented as of this encounter Miscellaneous Notes * Telephone Encounter - Rut Pinon APRN - 03/21/2017 6:22 PM EDT PATTERN DESIGNER called pt. Will send prescription for NPH vial and syringes. Start 10 units AM and PM. Pt statesinsurance coverage for levemir will be effective 04/08 * Telephone Encounter - Leticia Hagan RN - 03/21/2017 9:55 AM EDT Audra calls in and left message that she is out of her levemir now and is wondering what she should do. Her medicaid coverage has not kicked in yet. She is wondering what she should do. Has some humalog at home. Message forwarded to Rut Pinon documented in this encounter Plan of Treatment Not on file documented as of this encounter Visit Diagnoses Not on filedocumented in this encounter Care Teams Crystal Evaluator Relationship Specialty Start Date End Date Angie Mantilla MD [facility] [address] [place] [address] PCP - General 10/15/10 07/05/18 documented as of this encounter
--- OUTSIDE RECORDS SUMMARY | 2024-09-19 13:09 | XMS_ITS | Encounter Summary ---
Author Organization [facility] Address [address] [place] [address] Care Team Providers Care Deputy Court Name Role Phone Unavailable Primary Care Provider Unavailabl e Encounter Details Date Type Department Care Team (Late st Contact Info) Description 02/05/2010 Results Only [facility] [address] [place], [place] [id number] Angie Mantilla MD Social History Tobacco Use [...] Procedure Name Priority Date/Time Associated Diagnosis Comments HPV DETECTION, HIGH RISK TYPES Routine 02/05/2010 10:15 EDT CYTOPATHOLOGY Routine 02/05/2010 0:00 EDT documented in this encounter Results * HUMAN PAPILLOMA VIRUS DNA TEST (02/05/2010 10:15 EDT) Specimen Description Cervix, ThinPrep vial [facility] Result Negative for HPV types 16, 18, 31, 33, 35, 39, 45, 51, 52, 56, 58, 59, and 68. [facility] Report Status Final 02/18/2010 [facility] 02/05/2010 10:1 5 EDT 02/15/2010 10:15 EDT us Angie Mantilla MD MICROBIOLOGY - GENERAL ORDERABLES Final Result [facility] [address] [place] [id number] * CYTOPATHOLOGY (02/05/2010 0:00 EDT) Pathology Report: CYTOPATHOLOGY REPORT ? Reports generated via electronic interface contain original data; ? however they are lacking the format of the original report. ? Caution should be taken when reading/interpreti ng unformatted reports. ? Name: ? AUDRA SIMS ? Accession #: ? [id number] ? : ? 1950 (Age: 59) ??F ?Collect Date: ? 02/05/2010 ? Location: ? [facility] ? Receive Date: ? 02/09/2010 ? Provider: ?ANGIE NIEMIRA MD ? Copy to: ? Specimen/Source: ?Pap Test, Cervix, ThinPrep Imaging System with manual ?? evaluation ? Last Menstrual Period: ? 5 years ? Other: ? HPVDX - HPV testing requested regardless of diagnosis on current ThinPrep Pap ?? test. ? SPECIMEN ADEQUACY ? Satisfactory for Evaluation ? - transformation zone component present ? GENERAL CATEGORIZATION ? Negative for Intraepithelial Lesion or Malignancy ? Document reviewed and electronically signed by: ? Chary [place](ASCP) ? Report Date: ??02/12/2010 15:20 ? End of Report ? [facility] 02/05/2010 02/09/2010 us Angie Mantilla MD PATHOLOGY ORDERABLES Fi nal Result [facility] [address] [place] [address] documented in this encounter Visit Diagnoses Not on filedocumented in this encounter
--- OUTSIDE RECORDS SUMMARY | 2024-09-19 13:09 | XMS_ITS | Encounter Summary ---
Author Organization [facility] Address [address] [place] [address] Care Team Providers Care R D Intern Name Role Phone Angie Mantilla MD Primary Care Provider Unavailable Encounter Details Date Type Department Care Team (Late st Contact Info) Description 11/05/2020 Lab Requisition [facility] Pathology & Laboratory Medicine - [address] [address] Bobby Melendez MD [address] [place], [place] [id number] Encounter for other general examination Social History Tobacco Use Types Packs/Day Years Used Date Smoking Tobacco: Never Assessed Interpersonal Safety Answer Date Record ed Physically Hurt Never 05/10/2020 Verbally Threaten Not on file 05/10/2020 Comments Unknown Sex and Gender Information Value Date Recorded Sex Assigned at Not on file Legal Sex Female 18:12 EST Gender Identity Not on file Sexual Orientation Not on file documented as of this encounter Plan of Treatment Not on file documented as of this encounter Procedures Procedure Name Priority Date/Time Associated Diagnosis Comments SURGICAL PATHOLOGY Today 11/05/2020 8:06 EST documented in this encounter Results * SURGICAL PATHOLOGY (11/05/2020 8:06 EST) Final Diagnosis A. NECK, LEFT, SUBCUTANEOUS NODULE, EXCISION: - Follicular cyst, infundibular type. - Overlying skin with solar elastosis. 11/10/2020 10:[address] [facility] Attestation By the signature below, the attending physician certifies that they have 1) personally conducted a gross and/or microscopic examination of the described specimen(s), and/or personally interpreted the results of laboratory testing of the described specimen(s), and 2) personally rendered or confirmed the above diagnosis. 11/10/2020 10:03 [facility] at 1003 Clinical History Neck nodule; cyst vs. node? 11/10/2020 10:03 [facility] Gross Description A. Received in formalin labelled with proper patient identification (initials M, C) and left neck nodule is a 2.3 x 1.4 x 0.9 cm ovoid fragment of soft hummel-white to yellow tissue. There is a 0.7 cm in greatest dimension disruption located along 1 side of the specimen. Grumous hummel-white material protrudes from the disrupted area. Adjacent to the disrupted area is a 0.9 x 0.7 cm portion of unremarkable pink-hummel skin. The margin is inked. Sectioning reveals grumous hummel-white cut surfaces. No firm areas identified. The specimen is entirely submitted in A1-A2. BRANDON BLISS(ASCP) 11/06/2020 8:55 11/10/2020 10:03 [facility] Performing Lab [facility] 11/10/2020 10:03 [facility] Scanned Images 11/10/2020 10:03 [facility] Tissue SOFT TISSUE / Unknown 11/05/2020 8:06 EST 11/06/2020 8:14 EST us Bobby Melendez MD PATHOLOGY ORDERABLES Final Resul t [facility] [address] [place] [address] documented in this encounter Visit Diagnoses Diagnosis Encounter for other general examination documented in this encounter Care Teams R D Intern Relationship Specialty Start Date End Date Angie Mantilla MD PCP - General 08/22/15 documented as of this encounter
--- OUTSIDE RECORDS SUMMARY | 2024-09-19 13:09 | XMS_ITS | Encounter Summary ---
Author Organization [facility] Address [facility] [place] [address] Care Team Providers Care State Appellate Clerk Name Role Phone Angie Mantilla MD Primary Care Provider [phone] Reason for Visit * Reason Comments Medication Refill Encounter Details Date Type Department Care Team (Late st Contact Info) Description 12/28/2017 [place] [address] Rut Pinon [facility] [place] [address] Social History Tobacco Use Types Packs/Day Years [...] on filedocumented in this encounter Care Teams State Appellate Clerk Relationship Specialty Start Date End Date Angie Mantilla MD ANGY D [address] [place] [address] PCP - General 10/15/10 07/05/18 documented as of this encounter
--- OUTSIDE RECORDS SUMMARY | 2024-09-19 13:09 | XMS_ITS | Encounter Summary ---
Author Organization [facility] Address [facility] [place] [address] Care Team Providers Care General Road Supervisor Name Role Phone Angie Mantilla MD Primary Care Provider [phone] Reason for Visit * Reason Onset Date Comments Medication Refill 12/28/2017 Encounter Details Date Type Department Care Team (Late st Contact Info) Description 12/28/2017 [place] [address] [address] [facility] [place] [address] Social History Tobacco Use Types Packs/Day Years [...] encounter Miscellaneous Notes * Telephone Encounter - Livia Lam LPN - 12/28/2017 2:16 PM EDT New Rx needed with ICD code documented in this encounter Plan of Treatment Not on file documented as of this encounter Visit Diagnoses Not on filedocumented in this encounter Care Teams General Road Supervisor Relationship Specialty Start Date End Date Angie Mantilla MD [facility] [address] [place] [address] PCP - General 10/15/10 07/05/18 documented as of this encounter
--- OUTSIDE RECORDS SUMMARY | 2024-09-19 13:09 | XMS_ITS | Encounter Summary ---
Author Organization [facility] Address [facility] [place] [address] Care Team Providers Care Stacker Attendant Name Role Phone Angie Mantilla MD Primary Care Provider [phone] Encounter Details Date Type Department Care Team (Late st Contact Info) Description 02/27/2017 Telephone [place] [id number] Leticia Hagan, RN Social History Tobacco Use [...] encounter Miscellaneous Notes * Telephone Encounter - Leticia Hagan, RN - 02/27/2017 11:05 AM EDT Audra calls in and left message that she needs to speak with someone about a way to bring down thecost of her medications. Placed call to Audra who is due for a follow up appointment. She has retired and is on medicare now and some of her medications are too expensive. Let her know also that she is due for appointment. Appointment set up for Monday03/01/17 at 3pm with Rut Pinon at which time this can be discussed. documented in this encounter Plan of Treatment Not on file documented as of this encounter Visit Diagnoses Not on filedocumented in this encounter Care Teams Stacker Attendant Relationship Specialty Start Date End Date Angie Mantilla MD [facility] [address] [place] [address] PCP - General 10/15/10 07/05/18 documented as of this encounter
--- OUTSIDE RECORDS SUMMARY | 2024-09-19 13:09 | XMS_ITS | Encounter Summary ---
Author Organization [facility] Address [facility] [place] [address] Care Team Providers Care Coremaker Apprentice Name Role Phone Tiana Mcneal LENS MOLDING EQUIPMENT OPERATOR Primary Care Provider [phone] Reason for Visit * Reason Comments Medication Refill Encounter Details Date Type Department Care Team (Late st Contact Info) Description 07/15/2017 [place] [address] Rut Pinon LENS MOLDING EQUIPMENT OPERATOR [facility] [place] [address] Social History Tobacco Use Types Packs/Day Years [...] on filedocumented in this encounter Care Teams Coremaker Apprentice Relationship Specialty Start Date End Date Tiana Mcneal APRN PCP - General Family Medicine 10/20/20 documented as of this encounter
--- OUTSIDE RECORDS SUMMARY | 2024-09-19 13:09 | XMS_ITS | Encounter Summary ---
Author Organization [facility] Address [facility] [place] [address] Care Team Providers Care Electrician Supervisor Name Role Phone Angie Mantilla MD Primary Care Provider [phone] Reason for Visit * Reason Onset Date Comments Medication Refill 06/02/2017 Encounter Details Date Type Department Care Team (Late st Contact Info) Description 06/02/2017 [place] [address] Rut Pinon, [facility] [address] [place] [address] Social History Tobacco Use Types Packs/Day Years [...] on filedocumented in this encounter Care Teams Electrician Supervisor Relationship Specialty Start Date End Date Angie Mantilla MD ANGY [address] [place] [address] PCP - General 10/15/10 07/05/18 documented as of this encounter
--- OUTSIDE RECORDS SUMMARY | 2024-09-19 13:09 | XMS_ITS | Encounter Summary ---
Author Organization [facility] Address [facility] [place] [address] Care Team Providers Care Radio Installer Name Role Phone Angie Mantilla MD Primary Care Provider [phone] Encounter Details Date Type Department Care Team (Late st Contact Info) Description 12/04/2017 Telephone Endocrinology at [facility] [place] [phone] Enid Mcleod RN Social History Tobacco Use Types Packs/Day [...] encounter Miscellaneous Notes * Telephone Encounter - Enid Mcleod RN - 12/04/2017 3:47 PM EST Patient called looking for cheaper ways to purchase insulin than [employer]. Patient is trying to get a formulary from her insurance company to look for less expensive alternative medications. Called patient and referred her to our MAT program/Care Management. Discussed contacting cloth tester quality. documented in this encounter Plan of Treatment Not on file documented as of this encounter Visit Diagnoses Not on filedocumented in this encounter Care Teams Radio Installer Relationship Specialty Start Date End Date Angie Mantilla MD ANGY [address] [place], [place] [id number] PCP - General 10/15/10 07/05/18 documented as of this encounter
--- OUTSIDE RECORDS SUMMARY | 2024-09-19 13:09 | XMS_ITS | Encounter Summary ---
Author Organization [facility] Address [facility] [place] [address] Care Team Providers Care Freedom Of Information Officer Name Role Phone Angie Mantilla MD Primary Care Provider [phone] Reason for Visit * Reason Comments Diabetes Encounter Details Date Type Department Care Team (Latest Contact Info) Description 02/17/2016 4:00 PM EDT Office [place] [address] Rut Pinon APRN [facility] [place] [address] Diabetes mellitus type 2, uncomplicated Social History Tobacco Use Types Packs/Day Years [...] Sign Reading Time Taken Comments Blood Pressure 130/66 02/17/2016 3:49 PM EDT Pulse 72 02/17/2016 3:49 PM EDT Temperature - - Respiratory Rate - - Oxygen Saturation - - Inhaled Oxygen Concentration - - Weight 83.9 kg (185 lb) 02/17/2016 3:49 PM EDT Height 163.8 cm (5' 4.49) 02/17/2016 3:49 PM ED T Body Mass Index 31.28 02/17/2016 3:49 PM EDT documented in this encounter Progress Notes * Rut Pinon APRN - 02/17/2016 4:46 PM EDT REASON FOR VISIT: Followup type 2 DM, in continued good control. BRIEF HISTORY: Presents and states that overall she feels well. Stopped her statin medication about a month ago because she states I do not need it. Date of diagnosis of diabetes, 2000. Diabetes regimen: Metformin 1000 mg twice a day, Victoza 1.8 mg daily, Levemir 20 units twice a day, NovoLog 8-18 units before meals 3 times a day. [id number] meal plan: Breakfast was egg with broccoli, an [place] muffin, and a sausage. Lunch was a tuna wrap, avocado and an apple. Evening meal was chicken, potatoes, and broccoli. Physical activity is walking. PAST MEDICAL HISTORY: Type 2 DM, hyperlipidemia. PAST SURGICAL HISTORY: Tubal ligation. REVIEW OF SYSTEMS: Depression and mood. Enjoys time with her children and grandchildren. 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 Eyes: No recent vision changes. No recent headaches. No chest pain or shortness of breath. No recent GI symptoms. Appetite is the same. Sleep pattern is good. Extremities are good. PHYSICAL EXAM: APPEARANCE: She appears in excellent health. She is mildly overweight, 185 pounds. Blood pressure 130/66. EYES: No retinopathy with green-light exam. NECK: No thyromegaly or lymphadenopathy. HEART: Regular rate and rhythm. No murmur. LUNGS: Clear to auscultation. FEET: Skin is normal. Pulses are normal. NEURO: Normal sensation to 10 g of pressure. Hemoglobin A1c 7.3%, previous was 7.5%. IMPRESSION AND PLAN: DM type 2, in continued good overall control. No change in regimen today. Return to office in 1 year. Will check hemoglobin A1c, DLDL, creatinine. This was a 33-minute office visit, with 32 minutes spent counseling face to face with patient in the management of glucose levels, reviewing her lab result, gave her a copy, congratulating her with following a healthy meal plan and walking most days of the week, and stressing the importance of taking care of her own emotional health. Recent Results (from the past 72 hour(s)) Hemoglobin A1c Result Value Ref Range Hemoglobin A1C 7.3 (H) 4.3 - 5.6 % Est Avg Gluc 163 mg/dL documented in this encounter Plan of Treatment Not on file documented as of this encounter Results * (ABNORMAL) Microalbumin, urine, random (03/01/2017 4:27 PM EDT) Albumin / Creatinin Ratio, Urine 31(H) 0 - 29 mcg/mg Cr [facility] Comment: Reference Ranges: <30 mcg/mg: Normal 30-300 mcg/mg: Moderately increased albuminuria.* >300 mcg/mg: Severely increased albuminuria. * ACEI or ARB recommended if diabetic; suggested if BP>130/80 without diabetes ACEI or ARB strongly recommended if diabetic; recommended if BP>130/80 without diabetes Two of three specimens collected within a 3 to 6 month period should be abnormal before considering a patient to have albuminuria. Transient causes: exercise, fever, infection, CHF, marked hyperglycemia or hypertension. Persistent albuminuria indicates CKD and is an independent risk factor for ASCVD. ADA Standards of Medical Care in Diabetes-2016; KDIGO: Kidney International Supplements (2012) 2, 357? 362 Albumin, Urine 20.1 mg/L [facility] Creatinine, Urine 65 mg/dL [facility] Urine specimen (specimen) 03/01/2017 4:27 PM EDT 03/01/2017 4:36 PM EDT Narrative Resulting Agency Comment Spec In Lab Ramirez Ogden MD URINE ORDERABLES [facility] [address] * Vitamin B12 (03/01/2017 4:15 PM EDT) Vitamin B12 432 207 - 974 pg/mL [facility] Blood specimen (specimen) 03/01/2017 4:15 PM EDT 03/01/2017 4:22 PM EDT Narrative Resulting Agency Comment Spec In Lab Ramirez Ogden MD CHEMISTRY ORDERABLES Performing Organization Address [facility]/ZIP Co de Phone Number [facility] [place] [address] * LDL Cholesterol, Direct (03/01/2017 4:15 PM EDT) LDL Cholesterol, Direct 122 <=190 mg/dL [facility] Blood specimen (specimen) 03/01/2017 4:15 PM EDT 03/01/2017 4:22 PM EDT Narrative Resulting Agency Comment Spec In Lab Ramirez Ogden MD CHEMISTRY ORDERABLES Performing Organization Address [facility] Co de Phone Number [facility] [place] [address] * (ABNORMAL) Hemoglobin A1c (03/01/2017 4:15 PM EDT) Hemoglobin A1c 6.2(H) 4.3 - 5.6 % [facility] Comment: Reference Range: 4.3 - 5.6% 5.7 - 6.4% - Increased Risk of Developing Diabetes Mellitus >= 6.5% - Consistent with diagnosis of Diabetes Mellitus In the absence of hyperglycemia (i.e. plasma glucose > 200 mg/dL) or classic symptoms of hyperglycemia a repeat measurement of HbA1c should be performed on a separate sample to confirm the diagnosis. Diagnosis and Classification of Diabetes Mellitus, Diabetes Care 2013; 36: Suppl. 1, S84-74 Estimated Average Glucose 131 mg/dL [facility] Comment: eAG equivalents for HbA1c percentages: HbA1c(%) ?eAG(mg/dL) 6.0 ?126 6.5 ?140 7.0 ?154 7.5 ?169 8.0 ?183 8.5 ?197 9.0 ?212 9.5 ?226 10.0 ? 240 Limitations: The eAG calculation has not been validated on women, individuals below 18 years old and above 70 years old, and individuals with hemoglobinopathies. Additional resources are available on the ADA website. Thomas MORALES, Mark J, Gasper R, et al. ??Translating the A1C assay into estimated average glucose values. ??Diabetes Care 2008:31(8):0938-1247. Blood specimen (specimen) 03/01/2017 4:15 PM EDT 03/01/2017 4:22 PM EDT Narrative Resulting Agency Comment Spec In Lab Ramirez Ogden MD CHEMISTRY ORDERABLES [facility] [place] [address] * Creatinine (03/01/2017 4:15 PM EDT) Creatinine 0.78 0.70 - 1.20 mg/dL [facility] Comment: Please note that the pediatric reference intervals supplied above were not validated at [facility]. Results from pediatric patients should be interpreted in conjunction to the patient's age, height and muscle mass. Est Glomerular Filtration Rate >60 >=60 [facility] Comment: This estimated GFR (eGFR) value was calculated using the MDRD equation which has been validated on patients between the ages of 18 and 70. The MDRD should not be used to assess kidney function in patients < 18 years of age or in patients with extremes of body mass, or in patients with acute kidney failure. This value should be multiplied by 1.2 for patients. For further information please copy and paste the following links into your internet browser. http://[employer]/DHnkdep http://[employer]/DHMCnkf Blood specimen (specimen) 03/01/2017 4:15 PM EDT 03/01/2017 4:22 PM EDT Narrative Resulting Agency Comment Spec In Lab Ramirez Ogden MD CHEMISTRY ORDERABLES [facility] [place] [address] * (ABNORMAL) Hemoglobin A1c (02/17/2016 2:57 PM EDT) Hemoglobin A1c 7.3(H) 4.3 - 5.6 % [facility] Comment: Reference Range: 4.3 - 5.6% 5.7 - 6.4% - Increased Risk of Developing Diabetes Mellitus >=6.5% - Consistent with diagnosis of Diabetes Mellitus In the absence of hyperglycemia (i.e. plasma glucose > 200 mg/dL) or classic symptoms of hyperglycemia a repeat measurement of HbA1c should be performed on a separate sample to confirm the diagnosis. Diagnosis and Classification of Diabetes Mellitus, Diabetes Care 2013; 36: Suppl. 1, S67-49 Estimated Average Glucose 163 mg/dL [facility] Comment: eAG equivalents for HbA1c percentages: HbA1c(%) ?eAG(mg/dL) 6.0 ?126 6.5 ?140 7.0 ?154 7.5 ?169 8.0 ?183 8.5 ?197 9.0 ?212 9.5 ?226 10.0 ? 240 Limitations: The eAG calculation has not been validated on women, individuals below 18 years old and above 70 years old, and individuals with hemoglobinopathies. Additional resources are available on the ADA website: http://[employer].com/DHMCadacalc Thomas MORALES, Mark Cleaning, Gasper R, et al. ??Translating the A1C assay into estimated average glucose values. ??Diabetes Care 2008:31(8):1598-5782. Blood specimen (specimen) 02/17/2016 2:57 PM EDT 02/17/2016 3:13 PM EDT Narrative Resulting Agency Comment Spec In Lab Ramirez Ogden MD CHEMISTRY ORDERABLES Performing Organization Address [facility] Co de Phone Number [facility] [place] [address] documented in this encounter Visit Diagnoses Diagnosis Diabetes mellitus type 2, uncomplicated Type II or unspecified type diabetes mellitus without mention of complication, not stated as uncontrolled documented in this encounter Care Teams Freedom Of Information Officer Relationship Specialty Start Date End Date Angie Mantilla MD [facility] [address] [place] [address] PCP - General 10/15/10 07/05/18 documented as of this encounter
--- OUTSIDE RECORDS SUMMARY | 2024-09-19 13:09 | XMS_ITS | Encounter Summary ---
Author Organization Formerly [facility] Address [facility] [place] [address] Care Team Providers Care Dry Box Tender Name Role Phone Angie Mantilla MD Primary Care Provider [phone] Encounter Details Date Type Department Care Team (Latest Contact Info) Description 03/01/2017 2:00 PM EDT Laboratory Appointment Lab [address] [place] [phone] Diabetes mellitus type 2, uncomplicated Social History [...] Procedure Name Priority Date/Time Associated Diagnosis Comments U ALBUMIN/CRE RATIO Routine 03/01/2017 4 :27 PM EDT Diabetes mellitus type 2, uncomplicated CREATININE Routine 03/01/2017 4:15 PM EDT Diabetes mellitus type 2, uncomplicated LDL CHOLESTEROL, DIRECT Routine 03/01/2017 4:15 PM EDT Diabetes mellitus type 2, uncomplicated HEMOGLOBIN A1C Routine 03/01/2017 4:15 PM EDT Diabetes mellitus type 2, uncomplicated VITAMIN B12 Routine 03/01/2017 4:15 PM EDT Diabetes mellitus type 2, uncomplicated documented in this encounter Results * (ABNORMAL) Microalbumin, urine, random (03/01/2017 4:27 PM EDT) Albumin / Creatinin Ratio, Urine 31(H) 0 - 29 mcg/mg Cr [facility] Comment: Reference Ranges: <30 mcg/mg: [...] 2, 357? 362 Albumin, Urine 20.1 mg/L [facility] Creatinine, Urine 65 mg/dL [facility] Urine specimen (specimen) 03/01/2017 4:27 PM EDT 03/01/2017 4:36 PM EDT Narrative Resulting Agency Comment Spec In Lab Ramirez Ogden MD URINE ORDERABLES Performing Organization Address [facility] Co de Phone Number [facility] [place] [address] * Vitamin B12 (03/01/2017 4:15 PM EDT) Vitamin B12 432 207 - 974 pg/mL [facility] Blood specimen (specimen) 03/01/2017 4:15 PM EDT 03/01/2017 4:22 PM EDT Narrative Resulting Agency Comment Spec In Lab Ramirez Ogden MD CHEMISTRY ORDERABLES Performing Organization Address City/[facility]/ZIP Co de Phone Number [facility] [place] [address] * LDL Cholesterol, Direct (03/01/2017 4:15 PM EDT) LDL Cholesterol, Direct 122 <=190 mg/dL [facility] Blood specimen (specimen) 03/01/2017 4:15 PM EDT 03/01/2017 4:22 PM EDT Narrative Resulting Agency Comment Spec In Lab Ramirez Ogden MD CHEMISTRY ORDERABLES [facility] [place] [address] * (ABNORMAL) Hemoglobin A1c (03/01/2017 4:15 PM EDT) Pathologist [facility] Hemoglobin A1c 6.2(H) 4.3 - 5.6 % [facility] Comment: Reference Range: 4.3 - [...] Mellitus, Diabetes Care 2013; 36: Suppl. 1, S67-61 Estimated Average Glucose 131 mg/dL [facility] Comment: eAG equivalents for HbA1c [...] into estimated average glucose values. ??Diabetes Care 2008:31(8):5991-1354. Blood specimen (specimen) 03/01/2017 4:15 PM EDT 03/01/2017 4:22 PM EDT Narrative Resulting Agency Comment Spec In Lab Ramirez Ogden MD CHEMISTRY ORDERABLES Performing Organization Address [facility] de Phone Number [facility] [place] [address] * Creatinine (03/01/2017 4:15 PM EDT) Creatinine 0.78 0.70 - 1.20 mg/dL [facility] Comment: Please note that the pediatric reference intervals supplied above were not validated at [facility]. Results from pediatric patients should be interpreted in conjunction to the patient's age, height and muscle mass. Est Glomerular Filtration Rate >60 >=60 [facility] Comment: This estimated GFR (eGFR) value [...] the following links into your internet browser. [email or web address] Blood specimen (specimen) 03/01/2017 4:15 PM EDT 03/01/2017 4:22 PM EDT Narrative Resulting Agency Comment Spec In Lab Ramirez Ogden MD CHEMISTRY ORDERABLES Performing Organization Address [facility] Co de [place] [address] documented in this encounter Visit Diagnoses Diagnosis Diabetes mellitus type 2, uncomplicated Type II or unspecified type diabetes mellitus without mention of complication, not stated as uncontrolled documented in this encounter Care Teams Dry Box Tender Relationship Specialty Start Date End Date Angie Mantilla MD ANGY Daniel [address] [place] [address] PCP - General 10/15/10 07/05/18 documented as of this encounter
--- OUTSIDE RECORDS SUMMARY | 2024-09-19 13:09 | XMS_ITS | Clinical Summary ---
Author Organization [place] [address] Care Team Providers Care Operator Receptionist Name Role Phone Elizabet Tiana Pavon APRN Primary Care Provider [phone] Allergies Active Allergy Reactions Criticality Noted Date Comments Amoxicillin Trihydrate CIS - SOB, Edema, CIS - SOB, Edema Penicillins Medium CIS - SOB, edema, CIS - SOB, edema Medications Medication Sig Dispensed Refills Start Date End Date Status Calcium 600 mg Cap Take by mouth. Active Insulin [place], Disposable, (BD INSULIN PEN NEEDLE UF SHORT) 31 X 5/16 Needle 1 each by [facility]Non-Drug; Combo Route) route 5 times daily. 500 each 3 10/21/2014 Active Blood-Glucose Meter (ONETOUCH ULTRA2) Kit 1 each by [facility]Non-Drug; Combo Route) route as needed for Other. 1 each 0 06/17/2015 Active Lancets Misc 1 each by [facility]Non-Drug; Combo Route) route 3 times daily. 300 each 3 06/17/2015 Active aspirin 81 mg Tablet, Delayed Release (E.C.) Take 81 mg by mouth daily. Active metFORMIN (GLUCOPHAGE) 1,000 mg Tablet Take 1 tablet by mouth 2 times daily. 180 tablet 3 03/01/2017 Active lisinopril (PRINIVIL;ZESTRI L) 10 mg Tablet Take 1 tablet by mouth daily. 90 tablet 3 03/01/2017 Active insulin isophane- NPH (NOVOLIN N) Suspension Inject 10 Units subcutaneously 2 times daily. reli-on brand 10 mL 03/21/2017 Active Insulin Syringe-Needle U-100 0.3 mL 31 gauge x 5/16 Syringe 1 each by [facility]Non-Drug; Combo Route) route 2 times daily. 200 Syringe 3 03/30/2017 Active liraglutide (VICTOZA 3-REMEDIOS) 0.6 mg/0.1 mL (18 mg/3 mL) Pen Injector Inject 1.8 mg subcutaneously daily. 27 mL 3 04/10/2017 Active insulin detemir (LEVEMIR FLEXTOUCH) Insulin Pen Inject 20 Units subcutaneously 2 times daily. 45 mL 3 04/17/2017 Active HUMALOG KWIKPEN 100 unit/mL Insulin Pen INJECT 8-18 UNITS SUBCUTANEOUSLY THREE TIMES DAILY WITH MEALS 50 mL 3 08/14/2017 Active HUMALOG KWIKPEN 100 unit/mL Insulin Pen INJECT 8-18 UNITS SUBCUTANEOUSLY THREE TIMES DAILY WITH MEALS 60 mL 3 11/10/2017 Active ONETOUCH ULTRA TEST Strip 1 each by Other route 3 times daily. Use as instructed 300 strip 3 12/28/2017 Active LEVEMIR FLEXTOUCH U-100 INSULN Insulin Pen INJECT 20 UNITS SUBCUTANEOUSLY TWICE DAILY 45 mL 3 2018 Active HUMALOG KWIKPEN 100 unit/mL Insulin Pen INJECT 8 TO 18 UNITS SUBCUTANEOUSLY 3 TIMES DAILY (WITH MEALS) - MUST BE SEEN IN CLINIC FOR FURTHER REFILLS 60 mL 3 05/08/2019 Active atorvastatin (Lipitor) 40 mg Tablet TAKE 1 TABLET BY MOUTH ONCE DAILY AT BEDTIME 10/05/2020 Active flu vacc [id number],65yr up,/PF (FluZONE HighDose Quad 20-21 PF) 240 mcg/0.7 mL Syringe PHARMACIST ADMINISTERED IMMUNIZATION ADMINISTERED AT TIME OF DISPENSING 06/06/2020 Active Active Problems Problem Noted Date Diagnosed Date History of nephrolithiasis 02/17/2016 Type 2 diabetes mellitus 03/14/2012 Immunizations Name Administration Dates Next Due Influenza Trivalent w/Preservative 07/09/2014 Social History Tobacco Use Types Packs/Day Years Used Date Smoking Tobacco: Former Cigarettes Q uit: 03/02/1975 Smokeless Tobacco: Never Alcohol Use Standard Drinks/Week Comments Not Asked 0 (1 standard drink = 0.6 oz pur e alcohol) Sex and Gender Information Value Date Recorded Sex Assigned at Not on file Gender Identity Not on file Sexual Orientation Not on file Last Filed Vital Signs Vital Sign Reading Time Taken Comments Blood Pressure 128/76 03/01/2017 3:18 PM EDT Pulse 72 02/17/2016 3:49 PM EDT Temperature 36.7 ??C (98 ??F) 10/30/2014 3:28 PM EST Respiratory Rate 16 03/02/2011 4:38 PM EDT Oxygen Saturation 97% 10/30/2014 3:28 PM EST Inhaled Oxygen Concentration - - Weight 79.3 kg (174 lb 12.8 oz) 03/01/2017 3:18 PM EDT Height 163.8 cm (5' 4.49) 03/01/2017 3:18 PM ED T Body Mass Index 29.55 03/01/2017 3:18 PM EDT Plan of Treatment Health Maintenance Due Date Last Done Comments CT Colonography 1950 Colonoscopy 1950 Colorectal Cancer Screening 1950 FIT DNA 1950 FIT 1950 Sigmoidoscopy (10 year) with FIT yearly 1950 Sigmoidoscopy 1950 DM Opthalmology Exam 1960 Hepatitis C Screening 1968 Tetanus/Diphtheria/Pertussis Vaccines (1 - Tdap) 1969 Breast Cancer Share Decision Needed 1990 Breast Cancer screening 1990 Zoster vaccine (1 of 2) 2000 Advance Directive 2005 Bone Density Scan 2015 Pneumoccocal Vaccine: 65+ (1 of 1 - PCV) 2015 DM Hemoglobin A1c 06/01/2017 03/01/2017, , 08/05/2015, Additional history exists DM Creatinine yearly 03/01/2018 03/01/2017, 08/05/2015, 10/30/2014, Additional history exists DM Urine Microalbumin yearly 03/01/2018, 08/05/2015, 10/30/2014, Additional history exists Covid-19 Vaccine ( - 2023-2 5 season) 2024 Influenza (Flu) vaccine (1 o f 1 - Influenza standard series) 06/09/2024 07/09/2014 Lipid Screening Discontinued 08/05/2015, 10/10, 10/30/2013 Procedures Procedure Name Priority Date/Time Associated Diagnosis Comments U ALBUMIN/CRE RATIO Routine 03/01/2017 4 :27 PM EDT Diabetes mellitus type 2, uncomplicated HEMOGLOBIN A1C Routine 03/01/2017 4:15 PM EDT Diabetes mellitus type 2, uncomplicated CREATININE Routine 03/01/2017 4:15 PM EDT Diabetes mellitus type 2, uncomplicated HDL/CHOL PROFILE STAT 08/05/2015 7:23 AM EDT Type 2 diabetes mellitus without complication from Last 3 Months or Most Recently Relevant to Health Maintenance Results * (ABNORMAL) Microalbumin, urine, random (03/01/2017 4:27 PM EDT) Albumin / Creatinin Ratio, Urine 31(H) 0 - 29 mcg/mg Cr [facility] Comment: Reference Ranges: <30 mcg/mg: [...] 2, 357? 362 Albumin, Urine 20.1 mg/L [facility] Creatinine, Urine 65 mg/dL [facility] Urine specimen (specimen) 03/01/2017 4:27 PM EDT 03/01/2017 4:36 PM EDT Narrative Resulting Agency Comment Spec In Lab Ramirez Ogden MD URINE ORDERABLES [facility] [place] [address] * Creatinine (03/01/2017 4:15 PM EDT) Creatinine 0.78 0.70 - 1.20 mg/dL [facility] Comment: Please note that the pediatric reference intervals supplied above were not validated at [facility]. Results from pediatric patients should be interpreted [...] the following links into your internet browser. [email or web address] Blood specimen (specimen) 03/01/2017 4:15 PM EDT 03/01/2017 4:22 PM EDT Narrative Resulting Agency Comment Spec In Lab Ramirez Ogden MD CHEMISTRY ORDERABLES [facility] [place] [address] * (ABNORMAL) Hemoglobin A1c (03/01/2017 4:15 PM EDT) Hemoglobin A1c 6.2(H) 4.3 - 5.6 % [facility] Comment: Reference Range: 4.3 - [...] Mellitus, Diabetes Care 2013; 36: Suppl. 1, S67-74 Estimated Average Glucose 131 mg/dL [facility] Comment: eAG equivalents for HbA1c [...] into estimated average glucose values. ??Diabetes Care 2008:31(8):6007-0425. Blood specimen (specimen) 03/01/2017 4:15 PM EDT 03/01/2017 4:22 PM EDT Narrative Resulting Agency Comment Spec In Lab Ramirez Ogden MD CHEMISTRY ORDERABLES [facility] [place] [address] * HDL/Cholesterol Profile (08/05/2015 7:23 AM EDT) Cholesterol, Total 152 <=199 mg/dL [facility] Comment: Recommendations of the NCEP Adult Treatment Panel for the following risk cutoff thresholds for the [place] population: Desirable: <200 mg/dL Borderline High: 200-239 mg/dL High: > or = 240 mg/dL HDL Cholesterol 57 >=40 mg/dL [facility] Comment: Reference range: ??Low HDL: ?? < 40 mg/dL ??Normal: ?40-60 mg/dL ??Desirable: > 60 mg/dL JAMEL 2001; 285(19):4525-5369 Cholesterol/HDL Ratio 2.7 ratio [facility] Comment: A Cholesterol to HDL ratio below 4:1 is desirable. ??Studies suggest that increased CAD risk occurs at ratios above 5 for females and above 6 for men. ? [place] Heart Association ??(http://www.americanheart.org) ? Katie Int Med, 1994; 121:641 ? AM J Med, 1998; 105(1A):48S Blood specimen (specimen) 08/05/2015 7:23 AM EDT 08/05/2015 7:26 AM EDT Narrative Resulting Agency Comment Spec In Lab Irina Herrera MD CHEMISTRY ORDERAB LES [facility] from Last 3 Months or Most Recently Relevant to Health Maintenance Care Teams Operator Receptionist Relationship Specialty Start Date End Date Tiana Mcneal APRN PCP - General Family Medicine 10/20/20
--- OUTSIDE RECORDS SUMMARY | 2024-09-19 13:09 | XMS_ITS | Encounter Summary ---
Author Organization Formerly [facility] Address [facility] [place] [address] Care Team Providers Care Intake Worker Name Role Phone Angie Mantilla MD Primary Care Provider [phone] Encounter Details Date Type Department Care Team (Late st Contact Info) Description 03/21/2017 Orders [place] [address] Rut Pinon APRN [facility] ENDOCRINOLOG[place] [address] Social History Tobacco Use Types Packs/Day Years [...] on filedocumented in this encounter Care Teams Intake Worker Relationship Specialty Start Date End Date Angie Mantilla MD ANGY D [address] [place], [place] [address] PCP - General 10/15/10 07/05/18 documented as of this encounter
--- OUTSIDE RECORDS SUMMARY | 2024-09-19 13:09 | XMS_ITS | Encounter Summary ---
Author Organization [facility] Address [facility] [place] [address] Care Team Providers Care Youth Career Specialist Name Role Phone Angie Mantilla MD Primary Care Provider [phone] Reason for Visit * Reason Onset Date Comments Medication Refill 04/10/2017 Encounter Details Date Type Department Care Team (Late st Contact Info) Description 04/10/2017 Ref[place] [address] [address] Pinon [facility] [address] [place] [address] Social History Tobacco Use Types Packs/Day Years [...] Telephone Encounter - Livia Lam LPN - 04/10/2017 10:06 AM EDT Pharmacy asking for Rx for 3 pack documented in this encounter Plan of Treatment Not on file documented as of this encounter Visit Diagnoses Not on filedocumented in this encounter Care Teams Youth Career Specialist Relationship Specialty Start Date End Date Angie Mantilla MD [facility] Daniel [address] [place] [address] PCP - General 10/15/10 07/05/18 documented as of this encounter
--- OUTSIDE RECORDS SUMMARY | 2024-09-19 13:09 | XMS_ITS | Encounter Summary ---
Author Organization Formerly [facility] Address [facility] [place] [address] Care Team Providers Care Seafood Preparer Name Role Phone Angie Mantilla MD Primary Care Provider [phone] Reason for Visit * Reason Comments Medication Refill Encounter Details Date Type Department Care Team (Late st Contact Info) Description 09/06/2017 [place] [address] [facility] [place] [address] Social History Tobacco Use Types Packs/Day Years [...] on filedocumented in this encounter Care Teams Seafood Preparer Relationship Specialty Start Date End Date Angie Mantilla MD ANGY D [address] [place] [address] PCP - General 10/15/10 07/05/18 documented as of this encounter
--- OUTSIDE RECORDS SUMMARY | 2024-09-19 13:09 | XMS_ITS | Encounter Summary ---
Author Organization [facility] Address [facility] [place] [address] Care Team Providers Care History Instructor Name Role Phone Unknown Primary Care Provider Unavailabl e Reason for Visit * Reason Comments Medication Refill Encounter Details Date Type Department Care Team (Late st Contact Info) Description 04/12/2019 Ref[place] [address] Rut Pinon, [employer] [facility] [place] [address] Social History Tobacco Use Types Packs/Day Years [...] on filedocumented in this encounter Care Teams History Instructor Relationship Specialty Start Date End Date Unknown None PCP - General 07/09/18 10/19/20 documented as of this encounter
--- OUTSIDE RECORDS SUMMARY | 2024-09-19 13:09 | XMS_ITS | Data Portability ---
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 pen needle and discard. Use up to 5 needles daily 05/10 completed Not Available Not Available Not Available BD SafetyGli de Insulin Syringe 0.3 mL 31 gauge x 5/16 2017 active Not Available Not Available Not Avai lable Ibuprofen 200 Take 1 tab by mouth BID 2017 active Not Available Not Available Not Avai lable vitamin U92-qqsmk acid Take 1 tablet by mouth once a day active Not Available Not Available No t Available OneTouch Ultra2 Meter kit Use 1 kit as directed four times a day active Not Available Not Available No t Available Januvia 25 mg tablet TAKE 1 TABLET BY MOUTH ONCE DAILY FOR DIABETES 09/21 completed Not Available Not Available Not Available Januvia 50 mg tablet TAKE 1 TABLET BY MOUTH ONCE DAILY FOR DIABETES INCREASE IN STRENGTH /DOSE 09/21 completed Not Available Not Available Not Available Januvia 100 mg tablet TAKE 1 TABLET BY MOUTH ONCE DAILY active Not Available Not Available No t Available Levemir FlexTouch U-100 Insulin 100 unit/mL (3 mL) subcutane ous pen INJECT 15 UNITS SUBCUTAN EOUSLY TWICE DAILY 05/10 completed Not Available Not Available Not Available Jardiance 10 mg tablet Take 1 tablet by mouth once a day for diabetes 05/23 completed Not Available Not Available Not Available Jardiance 25 mg tablet Take 1 tablet by mouth once a day Note dose increase 02/21 completed Not Available Not Available Not Available Trulicity 1.5 mg/0.5 mL subcutane ous pen injector INJECT 1.5 MG SUBCUTAN EOUSLY ONCE A WEEK active Not Available Not Available No t Available Trulicity 0.75 mg/0.5 mL subcutane ous pen injector INJECT 0.75MG SUBCUTAN EOUSLY EVERY WEEK 03/20 completed Not Available Not Available Not Available OneTouch Delica Plus Lancing Device kit Use 1 lancet once daily to check blood sugar 2020 active Not Available Not Available Not Avai lable Gemtesa 75 mg tablet take 1 tablet once daily 2023 active Not Available Not Available Not Avai lable Paxlovid 300 mg (150 mg x 2)-100 mg tablets in a dose pack TAKE 3 TABLETS TOGETHER (TWO 150 MG NIRMATRE LVIR TABLETS AND ONE 100 MG RITONAVI R TABLET) BY MOUTH TWICE DAILY FOR 5 DAYS. DO NOT TAKE ATORVAST ATIN FOR 12 DAYS 02/20 completed Not Available Not Available Not Available Vitals Date Recorded Body height Body mass index (BMI) Body weight Oxygen saturation Oxygen saturation in Arterial blood by Pulse oximetry Heart rate Systolic blood pressure Diastolic blood pressure Provider Name and Address Organization Details Last Updated DateTime 4 163.83 cm 26.5 kg/m2 99562 g 96 % 96 % 92 /min 124 mm[Hg] 66 mm[Hg] LAQUITA BENNETT MA [facility] 4 11:34:29 Date Recorded Body height Body mass index (BMI) Body weight Oxygen saturation Oxygen saturation in Arterial blood by Pulse oximetry Heart rate Systolic blood pressure Diastolic blood pressure Provider Name and Address Organization Details Last Updated DateTime 4 163.83 cm 26.3 kg/m2 85808.2 5 g 94 % 94 % 78 /min 124 mm[Hg] 68 mm[Hg] LAQUITA BENNETT MA [facility] 4 14:08:03 Date Recorded Body height Body mass index (BMI) Body weight Oxygen saturation Oxygen saturation in Arterial blood by Pulse oximetry Heart rate Respiratory rate Systolic blood pressure Diastolic blood pressure Provider Name and Address Organization Details Last Updated DateTime 4 163.83 cm 24.9 kg/m2 36785.4 8 g 97 % 97 % 82 /min 18 /min 110 mm[Hg] 60 mm[Hg] JOCELYN PROCTOR RN [facility] 4 10:22:34 Date Recorded Body height Body mass index (BMI) Body weight Oxygen saturation Oxygen saturation in Arterial blood by Pulse oximetry Heart rate Systolic blood pressure Diastolic blood pressure Provider Name and Address Organization Details Last Updated DateTime 4 165.61 cm 25.5 kg/m2 12340.9 4 g 96 % 96 % 84 /min 106 mm[Hg] 66 mm[Hg] LAQUITA BENNETT MA [facility] 4 11:27:20 Social History Question Answer Notes LastModified by Organizat ion Details LastModified Time Tobacco Smoking Status Former Smoker LAQUITA BENNETT MA null, [facility] 03/20/2024 14:05:32 When Did You Quit Smoking? 16+yearsjacqueline [email or web address] Information not available 06/19/2024 Would You Say That, In General, Your Health Is Good [email or web address] Information not available 09/19/2024 Women Aged 18-50 - Would You Like To Become In The Next Year? (Female Patients Only) No [email or web address] Information not available 03/20/2024 How Often Does Anyone, Including Family, Physically Hurt You? Never [email or web address] Information not available 03/20/2024 How Often Does Anyone, Including Family, Insult Or Talk Down To You? Never [email or web address] Information no t available 03/20/2024 How Often Does Anyone, Including Family, Threaten You With Harm? Never [email or web address] Information not available 03/20/2024 How Often Does Anyone, Including Family, Scream Or Curse At You? Never [email or web address] Information not available 03/20/2024 Within The Past 12 Months, You Worried That Your Food Would Run Out Before You Got Money To Buy More. Never True [email or web address] Information n ot available 03/20/2024 Within The Past 12 Months, The Food You Bought Just Didn't Last And You Didn't Have Money To Get More. Never True [email or web address] Information not available 03/20/2024 In The Past 12 Months, Has Lack Of Reliable Transportation Kept You From Medical Appointments, Meetings, Work Or From Getting Things Needed For Daily Living? No [email or web address] Information not available 03/20/2024 What Is Your Housing Situation Today? I Have Housing. [email or web address] Information not available 03/20/2024 How Often In The Past Year Have You Used Marijuana (including Smoking, Vaping, Dabbing, Or Edibles)? Never [email or web address] Information not available 03/20/2024 How Often In The Past Year Have You Used Prescription Medications That Were Not Prescribed To You? Never [email or web address] Information not available 03/20/2024 How Often In The Past Year Have You Taken Your Own Prescription Medication More Than The Way It Was Prescribed Or For Different Reasons Than Its Intended Purpose? Never [email or web address] Information not available 03/20/2024 How Often In The Past Year Have You Used Other Drugs (for Example, Heroin, Cocaine, Meth, Salvia, Inhalants)? Never Information not available 03/20/2024 Have You Ever Used IV Drugs? No [email or web address] Information not available 09/19/2024 Date Of Most Recent SBINS 09/19/2024 Information not available 09/19/2024 What Was The Date Of Your Most Recent Tobacco Screening? 09/19/2024 [email or web address] Information n ot available 09/19/2024 Has Tobacco Cessation Counseling Been Provided? No [email or web address] Information not available 09/19/2024 How Many Years Have You Smoked Tobacco? 2 [email or web address] Information not available 03/20/2024 Do You Or Have You Ever Used Any Other Forms Of Tobacco Or Nicotine? No [email or web address] Information not available 09/19/2024 Sex: Female Functional Status None recorded. Mental Status None recorded. Family History Relationship Description Onset Age of this Age Resolved Age Notes LastModified by Organization Details LastModified Time Son Family history of malignant neoplasm [email or web address] Not available 2022 03:55:03 Father Family history of cancer of colon 60 Passed [email or web address] Not available 2023 14:29:04 Mother Alzheimer's disease [email or web address] Not available 2023 14:29:49 Sister Alzheimer's disease [email or web address] Not available 2023 14:29:49 Notes:Notable for colon canc er in her father. Mother w/ Alzheimer's disease. 3 sisters- one with Alzheimers. Son age 50 of lymphoma 2019. no heart disease or strokes Medical History No medical history recorded. Gynecological HistoryNo gynecological history recorded. Obstetrics History GPAL:G 0 P 0 0 0 0 Immunizations Vaccine Type Date Status Note Provider Nam e and Address Organization Details Recorded Time COVID-19, mRNA, LNP-S, PF, la-sucrose, 30 mcg/0.3 mL 4 completed LAQUITA BENNETT MA null, [place] [facility]. 03/20/2024 14:48:10 Influenza, high-dose, trivalent, PF [address], [place], [address], [facility] 06/19/2024 17:29:04 Tdap 9 completed Not Available Pending sale to [facility] 08/18/2023 06:18:01 zoster live 1 completed Not Available Pending sale to [facility] 08/18/2023 06:18:01 zoster live 1 completed Not Available Pending sale to [facility] 08/18/2023 06:18:01 Pneumococcal conjugate PCV 13 9 completed Not Available Pending sale to [facility] 08/18/2023 06:18:01 Influenza, high-dose, trivalent, PF 9 completed Not Available Pending sale to [facility] 08/18/2023 06:18:01 Influenza, high-dose, quadrivalent, PF 2 completed Not Available Pending sale to [facility] 08/18/2023 06:18:01 COVID-19, mRNA, LNP-S, PF, 100 mcg/0.5mL dose or 50 mcg/0.25mL dose 1 completed Not Available Pending sale to [facility] 08/18/2023 06:18:02 COVID-19, mRNA, LNP-S, PF, 100 mcg/0.5mL dose or 50 mcg/0.25mL dose 1 completed Not Available Pending sale to [facility] 08/18/2023 06:18:02 COVID-19, mRNA, LNP-S, PF, 100 mcg/0.5mL dose or 50 mcg/0.25mL dose 1 completed Not Available Pending sale to [facility] 08/18/2023 06:18:02 SARS-COV-2 (COVID-19) vaccine, UNSPECIFIED 2 completed Not Available Pending sale to [facility] 08/18/2023 06:18:02 pneumococcal polysaccharide PPV23 8 completed Not Available Pending sale to [facility] 08/18/2023 06:18:02 pneumococcal polysaccharide PPV23 0 completed Not Available Pending sale to [facility] 08/18/2023 06:18:02 influenza, unspecified formulation 9 completed Not Available Pending sale to [facility] 08/18/2023 06:18:02 influenza, unspecified formulation 0 completed Not Available Pending sale to [facility] 08/18/2023 06:18:02 influenza, unspecified formulation 9 completed Not Available [facility] 08/18/2023 06:18:02 influenza, unspecified formulation 1 completed Not Available [facility] 08/18/2023 06:18:02 COVID-19, mRNA, LNP-S, PF, la-sucrose, 30 mcg/0.3 mL 4 completed LAQUITA BENNETT MA null, [facility] 09/19/2024 12:04:08 COVID-19, mRNA, LNP-S, PF, 50 mcg/0.5 mL 3 completed MIKE BRAND LPN null, [facility] 09/21/2023 10:18:58 Influenza, high-dose, quadrivalent, PF 3 completed Not Available Pending sale to [facility] 10/20/2023 05:33:22 Past Encounters Encounter ID Performer Location Encounter Start Date Encounter Closed Date Diagnosis/Indication Diagnosis SNOMED-CT Code Diagnosis ICD10 Code [id number] [address] [address] 09/21/2023 09:55:31 09/21/2023 11:20:24 Type 2 diabetes mellitus without complication 863457991 E11.9 Essential hypertension 01314562 I10 Alzheimer's disease 2692 9004 G30.9 Constipation 09064635 K5 9.00 [id number] [address] HA[address] [address] 02/22/2024 15:15:37 02/22/2024 15:27:53 Hyperglycemia 69352104 R73.9 [id number] GRETTA HAWKINS[address] [address] 02/27/2024 11:25:00 02/27/2024 12:13:06 Type 2 diabetes mellitus without complication 777441587 E11.9 Alzheimer's disease 2692 9004 G30.9 [id number] GRETTA HAWKINS[address] [address] 03/20/2024 13:54:58 03/20/2024 14:49:52 Type 2 diabetes mellitus without complication 586218750 E11.9 Essential hypertension 19368100 I10 Active or passive immunization 882183703 Z23 Overactive urinary bladder 316023804 N32.81 Alzheimer's disease 2692 9004 G30.9 [id number] GRETTA HAWKINS PA-C [address] [address] 06/19/2024 10:09:24 06/19/2024 11:40:07 Type 2 diabetes mellitus without complication 812905443 E11.9 Essential hypertension 64450697 I10 Active or passive immunization 790592649 Z23 Overactive urinary bladder 881220519 N32.81 Body mass index 20-24 - normal 848410367 Z68.24 Health Concerns Section Related Observation LastModified by Organization Detai ls LastModified Time None Recorded Concern Status LastModified by Organization Details LastModified Time None Recorded Advance Directives Directive None Recorded Payers Encounter Date Sequence Insurance Name Policy Number Policy Figueroa Covered Member ID Figueroa Member ID Guarantor Name 02/22/2024 1 [place] - [place]PO) [id number] Audra Huerta Roni [id number] Audra Huerta Tamayo 02/27/2024 1 [place]) [id number] Audra Huerta Tamayo [id number] Audra Huerta Tamayo 03/20/2024 1 [place]) [id number] Audra Huerta Roni [id number] Audra Huerta Roni 06/19/2024 1 [place]) [id number] Audra Huerta Roni [id number] Audra Tamayo Notes Date Note Type Note Provider Name and Address Organization Details Recorded Time 02/27/2024 text/html Patient presents with Son (Conner) for high blood sugars. Daughter Gia Arriola is on the phone. Patient is new to this provider. She has a new patient appointment scheduled in a few weeks. Her blood sugars have been in the 300s sometimes over 400s. They did bring her glucometer I looked through her glucometer and it appears that since the beginning of December her sugars have been in the mid 200s to upper 300s. Her last A1c in September was 7.7. Today her A1c is 9.9. She does get Meals on Wheels but this is not new. She does try to limit her carb intake. She does have a history of Alzheimer's disease. Between her daughter and her son they help to care for her. Her daughter notes that a couple weeks ago she just started doing her pill box for her. She mentions that she is probably missing taking her medications 1-2 times per week. She has had a couple episodes of vomiting last time was yesterday. She did recently have a urinalysis and urine culture done that did not show infection. Patient denies fevers, chills, sweats, abdominal pain, cough, shortness of breath, wheezing and skin infections. GRETTA HAWKINS PA-C [address], [place], [address], [facility]. 02/27/2024 13:08:10 03/20/2024 text/html The patient is h ere for a new patient appointment and follow-up on diabetes, Alzheimer's disease, and overactive bladder. Type 2 diabetes mellitus: The patient reports that Trulicity 0.75mg once weekly has been helping control her blood sugar levels, with recent readings between 120-180, improved from previous levels around 200-400. Alzheimer's disease: The patient has been seeing a neurologist and is on the highest doses of donepezil and memantine. The neurologist recommends yearly appointments for checkups. The patient's family supports her by organizing her medications using a pill organizer. She has support at home. she no longer drives Overactive bladder: The patient experiences frequent urination and uses Poise pads. She has not been taking Gemtesa due to insurance issues. daughter is working on getting power of energy attorney tomorrow and will want to revisit this prescription in the near future - Last mammogram: December (results were good) - Last colonoscopy: June 24, 2022 (no further colonoscopies needed) - Last Pap smear: Not applicable due to patient age- Imms: due for covid booster otherwise utd - BW: done in september 2023 - Former smoker, but not significant smoking history - Gardening as a recent activity GRETTA HAWKINS PA-C [address], [place], [address], [facility]. 03/20/2024 15:34:42 06/19/2024 text/html Patient is here for follow-up on diabetes, as well as discussing nausea, vomiting, and overactive bladder. Type 2 diabetes: Patient has been taking Trulicity, which has helped reduce her A1c from 9.9 in February to 7.3 now. She has experienced weight loss, nausea, vomiting, and appetite changes as side effects of the medication. Vomiting occurs approximately once a month, and nausea is generally associated with vomiting. Patient's adherence to her other medications could be improved. she notes that this has been tolerable and she does not want to have her medications changed Essential hypertension: Patient's blood pressure during this visit was 110/60. She denied experiencing lightheadedness or dizziness. Overactive bladder: she was seeing Dr Dickson for urology but has not followed up with urology since he left. There have been insurance issues of getting her gemtesa covered. she would like to establish care with another urologist. [address], [place], [address], [facility]. 06/19/2024 17:38:53 OBGyn Episode No OBEpisode recorded.
--- OUTSIDE RECORDS SUMMARY | 2024-09-19 13:09 | XMS_ITS | Encounter Summary ---
Author Organization [facility] Address [address] [place] [address] Care Team Providers Care Aviation Safety Technician Name Role Phone Angie Mantilla MD Primary Care Provider Unavailable Encounter Details Date Type Department Care Team (Late st Contact Info) Description 06/09/2021 Lab Requisition [facility] Medicine - [address] [address] Outr Resulting Lab, Provider Social History Tobacco Use Types Packs/Day Years [...] Procedure Name Priority Date/Time Associated Diagnosis Comments PTH INTACT Routine 06/09/2021 11:03 EDT documented in this encounter Results * PTH INTACT (06/09/2021 11:03 EDT) Intact PTH 71 19 - 88 pg/mL 06/10/2021 9:36 EDT [facility] Blood VENOUS BLOOD / Unknown 06/09/2021 11:03 EDT 06/09/2021 16:48 EDT us Provider Outr Resulting Lab CHEMISTRY & BLOOD GA S ORDERABLES Final Result Performing Organization Address [facility]/State/ZIP Co de Phone Number [facility] [address] [place] [address] documented in this encounter Visit Diagnoses Not on filedocumented in this encounter Care Teams Aviation Safety Technician Relationship Specialty Start Date End Date Angie Mantilla MD PCP - General 08/22/15 documented as of this encounter
--- OUTSIDE RECORDS SUMMARY | 2024-09-19 13:09 | XMS_ITS | Encounter Summary ---
Author Organization [facility] Address [facility] [place] [address] Care Team Providers Care Tooling Engineering Tech Name Role Phone Unknown Primary Care Provider Unavailabl e Reason for Visit * Reason Comments Medication Refill Encounter Details Date Type Department Care Team (Late st Contact Info) Description 11/03/2018 [place] [address] Rut Pinon, DOCTOR OF NURSE ANESTHESIA [facility] [place] [address] Social History Tobacco Use Types Packs/Day Years [...] on filedocumented in this encounter Care Teams Tooling Engineering Tech Relationship Specialty Start Date End Date Unknown None PCP - General 07/09/18 10/19/20 documented as of this encounter
--- OUTSIDE RECORDS SUMMARY | 2024-09-19 13:09 | XMS_ITS | Referral Summary ---
Author Organization [facility] Address [address] [place] [address] Care Team Providers Care Social Worker Palliative Care Name Role Phone Angie Mantilla MD Primary Care Provider Unavailable Social History Tobacco Use Types Packs/Day Years Used Date Smoking Tobacco: Never Assessed Interpersonal Safety Answer Date Record ed Physically Hurt Never 05/10/2020 Verbally Threaten Not on file 05/10/2020 Comments Unknown Sex and Gender Information Value Date Recorded Sex Assigned at Not on file Legal Sex Female 18:12 EST Gender Identity Not on file Sexual Orientation Not on file Plan of Treatment Not on file Insurance [facility] [place] Care Teams Social Worker Palliative Care Relationship Specialty Start Date End Date Angie Mantilla MD PCP - General 08/22/15
--- OUTSIDE RECORDS SUMMARY | 2024-09-19 13:09 | XMS_ITS | Clinical Summary ---
Author Organization [facility] Address [address] [place] [address] Care Team Providers Care Disposal Operator Name Role Phone Angie Mantilla MD Primary [...] Orientation Not on file Plan of Treatment Health Maintenance Due Date Last Done Comments Hepatitis C Screen 1950 Fall Risk Screening 2015 COVID-19 Vaccine (2023- season) 2024 RSV Immunization ( o r 60+ Years) (1 - 1-dose 75+ series) 2025 Insurance [facility] [place] Care Teams Disposal Operator Relationship Specialty Start Date End Date Angie Mantilla MD PCP - General 08/22/15
--- OUTSIDE RECORDS SUMMARY | 2024-09-19 13:09 | XMS_ITS | Encounter Summary ---
Author Organization Pending Sale To [facility] [place] [address] Care Team Providers Care Home Help Aide Name Role Phone Angie Mantilla MD Primary Care Provider [phone] Reason for Visit * Reason Onset Date Comments Medication Refill 03/30/2017 Encounter Details Date Type Department Care Team (Late st Contact Info) Description 03/30/2017 [place] [id number] Leticia Hagan RN Social History Tobacco Use Types Packs/Day [...] Miscellaneous Notes * Telephone Encounter - Leticia Hagan RN - 03/30/2017 9:32 AM EDT Received call from pharmacy. They would like to get a script for the insulin syringes that are 31G. documented in this encounter Plan of Treatment Not on file documented as of this encounter Visit Diagnoses Not on filedocumented in this encounter Care Teams Home Help Aide Relationship Specialty Start Date End Date Angie Mantilla MD ANGY D [address] [place] [address] PCP - General 10/15/10 07/05/18 documented as of this encounter
--- OUTSIDE RECORDS SUMMARY | 2024-09-19 13:09 | XMS_ITS | Continuity of Care Document ---
Author Organization [facility] Address [address] [place] [address] Care Team Providers Care Oil Deliverer Name Role Phone Tiana Mcneal Primary Care Physician [phone] Encounter NCTY_IA Date(s): 12/27/23 - 12/27/23 [facility] [address] [place] [address] Discharge Disposition: Home or Self Care Attending Physician: Tiana cMneal NP Admitting Physician: Tiana Mcneal NP Referring [...] 0 Refill(s) Start Date: 03/09/23 Status: Ordered Gemtesa 75 mg oral tablet 75 mg = 1 tab, Oral, Daily, # 28 tab, 0 Refill(s), samples given to patient (Rx) Start Date: 09/08/23 Stop Date: 10/06/23 Status: Ordered Gemtesa 75 mg oral tablet 75 mg = 1 tab, Oral, Daily, # 90 tab, 3 Refill(s), Pharmacy: [id number], 163, cm, 09/07/23 9:40:00 EST, Height, 70.44, kg, 09/07/23 9:44:00 EST, Weight Dosing Start Date: 09/28/23 Stop Date: 09/22/24 Status: Ordered Januvia 100 mg oral tablet [...] Body Site Status Colonoscopy Completed None Completed Social History Social History Type Response Tobacco Former tobacco user Tobacco Use:. Total pack years: 2. Sex Female Patient Care team information Care Team Personnel Name: Tiana Mcneal NP Position: No Access Member Role: Informed Provider Address: Address: [id number] [place] [address] Care Team Related Persons Name: ANDRIY URIBE
--- OUTSIDE RECORDS SUMMARY | 2024-09-19 13:09 | XMS_ITS | Encounter Summary ---
Author Organization [facility] Address [facility] [place] [address] Care Team Providers Care Network Control Operator Name Role Phone Angie Mantilla MD Primary Care Provider [phone] Reason for Visit * Reason Onset Date Comments Medication Refill 06/22/2016 Encounter Details Date Type Department Care Team (Late st Contact Info) Description 06/22/2016 Ref[place] [address] Rut Pinon, [facility] [place] [address] Social History Tobacco Use Types Packs/Day Years [...] on filedocumented in this encounter Care Teams Network Control Operator Relationship Specialty Start Date End Date Angie Mantilla MD [facility] [address] [place] [address] PCP - General 10/15/10 07/05/18 documented as of this encounter
--- OUTSIDE RECORDS SUMMARY | 2024-09-19 13:09 | XMS_ITS | Encounter Summary ---
Author Organization [facility] Address [facility] [place] [address] Care Team Providers Care Entrance Guard Name Role Phone Angie Mantilla MD Primary Care Provider [phone] Reason for Visit * Reason Onset Date Comments Medication Refill 07/21/2016 Encounter Details Date Type Department Care Team (Late st Contact Info) Description 07/21/2016 Refill [place] [address] Rut Pinon, [facility] [place] [address] Social History Tobacco Use Types Packs/Day Years [...] on filedocumented in this encounter Care Teams Entrance Guard Relationship Specialty Start Date End Date Angie Mantilla MD [facility] [address] [place] [address] PCP - General 10/15/10 07/05/18 documented as of this encounter
--- OUTSIDE RECORDS SUMMARY | 2024-09-19 13:10 | XMS_ITS | Encounter Summary ---
Author Organization [facility] Address [facility] [place] [address] Care Team Providers Care Strategy Intern Name Role Phone Angie Mantilla MD Primary Care Provider [phone] Encounter Details Date Type Department Care Team (Late st Contact Info) Description 02/04/2015 Notes [place] [address] Livia Lam LPN Social History Tobacco Use Types Packs/Day Years [...] as of this encounter Progress Notes * Livia Lam LPN - 02/04/2015 10:52 AM EDT Form faxed to [facility] for Blood Glucose Monitoring supplies Confirmation on fax received. documented in this encounter Plan of Treatment Not on file documented as of this encounter Visit Diagnoses Not on filedocumented in this encounter Care Teams Strategy Intern Relationship Specialty Start Date End Date Angie Mantilla MD ANGY Sanchez [address] [place] [address] PCP - General 10/15/10 07/05/18 documented as of this encounter
--- OUTSIDE RECORDS SUMMARY | 2024-09-19 13:10 | XMS_ITS | Encounter Summary ---
Author Organization [facility] Address [facility] [place] [address] Care Team Providers Care Machine I Cutter Name Role Phone Angie Mantilla MD Primary Care Provider [phone] Reason for Visit * Reason Onset Date Comments Medication Refill 11/15/2012 Encounter Details Date Type Department Care Team (Late st Contact Info) Description 11/15/2012 [place] [address] Bobby Amos MD [facility] [place] [address] Diabetes mellitus (Primary Dx); Type 2 diabetes mellitus Social History Tobacco Use Types Packs/Day Years Used Date Smoking Tobacco: Former Cigarettes Q uit: 03/02/1975 Alcohol Use Standard Drinks/Week Comments Not Asked 0 (1 standard drink = 0.6 oz pur e alcohol) Sex and Gender Information Value Date Recorded Sex Assigned at Not on file Gender Identity Not on file Sexual Orientation Not on file documented as of this encounter Plan of Treatment Not on file documented as of this encounter Visit Diagnoses Diagnosis Diabetes mellitus- Primary Type II or unspecified type diabetes mellitus without mention of complication, not stated as uncontrolled Type 2 diabetes mellitus Type II or unspecified type diabetes mellitus without mention of complication, not stated as uncontrolled documented in this encounter Care Teams Machine I Cutter Relationship Specialty Start Date End Date Angie Mantilla MD [facility] [address] [place] [address] PCP - General 10/15/10 07/05/18 documented as of this encounter
--- OUTSIDE RECORDS SUMMARY | 2024-09-19 13:10 | XMS_ITS | Encounter Summary ---
Author Organization [facility] Address [facility] [place] [address] Care Team Providers Care Ritual Circumciser Name Role Phone Angie Mantilla MD Primary Care Provider [phone] Reason for Visit * Reason Onset Date Comments Medication Refill 02/04/2015 Encounter Details Date Type Department Care Team (Late st Contact Info) Description 02/04/2015 [place] [address] Irina Herrera MD [facility] [address] [place] [address] Social History Tobacco Use Types Packs/Day Years [...] Telephone Encounter - Livia Lam LPN - 02/04/2015 11:28 AM EDT Patient request Rx go to [facility] documented in this encounter Plan of Treatment Not on file documented as of this encounter Visit Diagnoses Not on filedocumented in this encounter Care Teams Ritual Circumciser Relationship Specialty Start Date End Date Angie Mantilla MD [facility] [address] [place] [address] PCP - General 10/15/10 07/05/18 documented as of this encounter
--- OUTSIDE RECORDS SUMMARY | 2024-09-19 13:10 | XMS_ITS | Encounter Summary ---
Author Organization [facility] [place] [address] Care Team Providers Care Manager Training And Development Name Role Phone Angie Mantilla MD Primary Care Provider [phone] Reason for Visit * Reason Onset Date Comments Prior Authorization 05/11/2015 Encounter Details Date Type Department Care Team (Late st Contact Info) Description 05/11/2015 Telephone [place] [address] Gia Weiner Prior Authorization Social History Tobacco Use Types Packs/Day Years [...] encounter Miscellaneous Notes * Telephone Encounter - Gia Weiner - 05/11/2015 9:47 AM EDT Medication Prior Authorization [facility] Medication name/dose/directions: NOVOLOG FLEXPEN - INJ 6/12U SUBQ 3X DAILY Rationale for request: TYPE II DM Health plan: [facility] Authorizing provider relations representative name: ANUSHA Faxed to health plan on: 05/08/15 Health plan decision: Approved Quantity approved: Authorization number: [id number] Start date: 05/08/15 End date: 05/08/16 Patient notified? Pharmacy notified? documented in this encounter Plan of Treatment Not on file documented as of this encounter Visit Diagnoses Not on filedocumented in this encounter Care Teams Manager Training And Development Relationship Specialty Start Date End Date Angie Mantilla MD [facility] [address] [place] [address] PCP - General 10/15/10 07/05/18 documented as of this encounter
--- OUTSIDE RECORDS SUMMARY | 2024-09-19 13:10 | XMS_ITS | Encounter Summary ---
Author Organization [facility] Address [facility] [place] [address] Care Team Providers Care Clerical Warehouse Worker Name Role Phone Angie Mantilla MD Primary Care Provider [phone] Reason for Visit * Reason Onset Date Comments Medication Refill 10/07/2014 Encounter Details Date Type Department Care Team (Late st Contact Info) Description 10/07/2014 [place] [address] Irina Herrera MD [facility] [place] [address] Social History Tobacco Use Types Packs/Day Years [...] on filedocumented in this encounter Care Teams Clerical Warehouse Worker Relationship Specialty Start Date End Date Angie Mantilla MD [facility] [address] [place] [address] PCP - General 10/15/10 07/05/18 documented as of this encounter
--- OUTSIDE RECORDS SUMMARY | 2024-09-19 13:10 | XMS_ITS | Encounter Summary ---
Author Organization [facility] Address [facility] [place] [address] Care Team Providers Care Forest Logistics Manager Name Role Phone Angie Mantilla MD Primary Care Provider [phone] Reason for Visit * Reason Onset Date Comments Medication Refill 09/25/2014 Encounter Details Date Type Department Care Team (Late st Contact Info) Description 09/25/2014 Ref[place] [address] Irina Herrera MD [facility] [place] [address] Social History Tobacco Use Types Packs/Day Years [...] on filedocumented in this encounter Care Teams Forest Logistics Manager Relationship Specialty Start Date End Date Angie Mantilla MD [facility] [address] [place] [address] PCP - General 10/15/10 07/05/18 documented as of this encounter
--- OUTSIDE RECORDS SUMMARY | 2024-09-19 13:10 | XMS_ITS | Encounter Summary ---
Author Organization [facility] Address [facility] [place] [address] Care Team Providers Care Feather Trimmer Name Role Phone Angie Mantilal MD Primary Care Provider [phone] Reason for Visit * Reason Comments Medication Refill Encounter Details Date Type Department Care Team (Late st Contact Info) Description 01/04/2016 [place] [address] Irina Herrera MD [facility] [place] [address] Social History Tobacco Use Types Packs/Day Years [...] on filedocumented in this encounter Care Teams Feather Trimmer Relationship Specialty Start Date End Date Angie Mantilla MD [facility] [address] [place] [address] PCP - General 10/15/10 07/05/18 documented as of this encounter
--- OUTSIDE RECORDS SUMMARY | 2024-09-19 13:10 | XMS_ITS | Encounter Summary ---
Author Organization [facility] Address [facility] [place] [address] Care Team Providers Care Radiologist Physician Name Role Phone Angie Mantilla MD Primary Care Provider [phone] Reason for Visit * Reason Onset Date Comments Medication Refill 10/10/2012 Encounter Details Date Type Department Care Team (Late st Contact Info) Description 10/10/2012 Ref[place] [address] Nani Gonzalez MD [facility] [place] [address] Social History Tobacco Use Types Packs/Day Years [...] on filedocumented in this encounter Care Teams Radiologist Physician Relationship Specialty Start Date End Date Angie Mantilla MD [facility] [address] [place] [address] PCP - General 10/15/10 07/05/18 documented as of this encounter
--- OUTSIDE RECORDS SUMMARY | 2024-09-19 13:10 | XMS_ITS | Encounter Summary ---
Author Organization [facility] Address [facility] [place] [address] Care Team Providers Care Racking Machine Operator Name Role Phone Angie Mantilla MD Primary Care Provider [phone] Reason for Visit * Reason Onset Date Comments Labs Only 08/17/2012 Encounter Details Date Type Department Care Team (Late st Contact Info) Description 08/17/2012 Telephone [place] [address] Bobby Amos MD [facility] [place] [address] Labs Only Social History Tobacco Use Types Packs/Day Years [...] documented as of this encounter Results * CBC (with Diff) (01/24/2013 12:34 PM EDT) White Blood Cell 6.5 4.0 - 10.0 x10(3)/mcL [facility] Red Blood Cell 4.41 3.93 - 5.22 x10(6)/mcL [facility] Hemoglobin 13.4 11.2 - 15.7 gm/dL [facility] Hematocrit 39.5 34.0 - 45.0 % [facility] Mean Cell Volume 89.6 79.0 - 94.0 fL [facility]ENNI[facility] Mean Cell Hemoglobin 30.4 26.6 - 32.2 pg [facility]ILLENNI[facility] Mean Cell Hemoglobin Concentration 33.9 32.0 - 36.5 gm/dL [facility]NI[facility] Platelet 205 145 - 370 x10(3)/mcL [facility]EN[facility] RDW Standard Deviation 41.3 35.0 - 46.0 fL [facility] RDW coefficient of variation 12.9 10.9 - 14.4 % [facility] Mean Platelet Volume 9.2 9.0 - 12.0 fL [facility] Blood specimen (specimen) 01/24/2013 12:34 PM EDT 01/24/2013 12:41 PM EDT Narrative Resulting Agency Comment Spec In Lab Bobby Amos MD HEMATOLOGY ORDERAB LES Performing Organization Address [facility] Co de Phone Number [facility] * TSH (01/24/2013 12:34 PM EDT) Thyroid Stimulating Hormone 1.12 0.27 - 4.20 mcIU/mL [facility]EN[facility] Blood specimen (specimen) 01/24/2013 12:34 PM EDT 01/24/2013 12:41 PM EDT Narrative Resulting Agency Comment Spec In Lab Bobby Amos MD CHEMISTRY ORDERABL ES Performing Organization Address [facility] Co de Phone Number [facility] * Basic Metabolic Panel (non-fasting) (01/24/2013 12:34 PM EDT) Glucose 148 60 - 199 mg/dL [facility] Comment:Diabetes: >=200 mg/d L plus symptoms Blood Urea Nitrogen 15 8 - 18 mg/dL [facility] Creatinine 0.83 0.70 - 1.20 mg/dL [facility] Comment: Please note that the pediatric reference intervals supplied above were not validated at [facility]. Results from pediatric patients should be interpreted in conjunction to the patient's age, height and muscle mass. Sodium 141 135 - 145 mmol/L [facility] MILLENNIUM Potassium 4.2 3.5 - 5.0 mmol/L [facility] Comment: Please note: ??Patients with WBC >100,000 may have falsely elevated Potassium levels. ??For accurate Potassium quantification in these patients send serum separator tube (gold top) for subsequent determinations. ??Contact the Clinical Chemistry Laboratory if there are any questions. Chloride 102 98 - 107 mmol/L [facility] Carbon Dioxide 28 22 - 31 mmol/L [facility] Anion Gap 11 5 - 15 mmol/L [facility] Calcium 10.5 8.5 - 10.5 mg/dL [facility] MILLENNIUM Est Glomerular Filtration Rate >60 >=60 [facility] Comment: The National Kidney Disease Education Program (NKDEP) has recommended all laboratories report estimated GFR (eGFR) along with plasma creatinine measurements to assist you with recognition of early kidney disease. Caveats: ??Plasma creatinine should be at steady-state (unchanged within the past week). For patients multiply eGFR by 1.2. The MDRD equation was developed using patients between the ages of 18 and 70 years. ?? The MDRD equation has not been validated for patients < 18 years of age and should not be used to assess renal function in the pediatric population. ??The MDRD eGFR equation will also overestimate the true GFR of patients above the age of 70. ??This overestimation is variable but increases with age. At present, NKDEP does NOT recommend using the MDRD equation for drug dosing purposes and pharmacists should continue to use their current dosing methods. In addition, numerical eGFR values greater than 60 ml/min/1.73 square meters should be treated as > 60, and not an exact number due to greater inaccuracies at these higher values. Per NKDEP, they classify normal renal function as any GFR >60ml/min/1.73 square meters; chronic kidney disease when GFR <60, and renal failure when GFR <15. ??This calculation may not be valid for patients with atypical muscle mass (very lean or obese), acute renal failure, and in patients with diabetic kidney disease. References: http://nkdep.nih.gov/resources/NKDEP_Suggestn4Labs_0606_508.pdf http://www.kidney.org/professionals/kls/pdf/faq_gfr.pdf Eric K, Dori NA, Ashley AK, Emery TS, Mami AD, Lottie YON. Relative performance of the MDRD and CKD-EPI equations for estimating glomerular filtration rate among patients with varied clinical presentations. Clin J Am Soc Nephrol;6:1963-72. Blood specimen (specimen) 01/24/2013 12:34 PM EDT 01/24/2013 12:41 PM EDT Narrative Resulting Agency Comment Spec In Lab Bobby Amos MD CHEMISTRY ORDERABL ES [facility] * (ABNORMAL) Hemoglobin A1c (01/24/2013 12:34 PM EDT) Hemoglobin A1c 10.1(H) 4.3 - 6.1 % [facility] Comment: The [place] Diabetes Association (ADA) has stated that HbA1c values >or= 6.5% are consistent with the diagnosis of diabetes mellitus. In the absence of hyperglycemia (i.e. plasma glucose > 200 mg/dL) or classic symptoms of hyperglycemia a repeat measurement of HbA1c should be performed on a separate sample to confirm the diagnosis. The ADA also considers an HbA1c value between 5.7% and 6.4% to be consistent with an increased risk of diabetes (prediabetes). Patients with an HbA1c value in this range should be counseled about their increased risk of progressing to diabetes. Reference: Position Statement: Standards of Medical Care in Diabetes 2013. Diabetes Care 2013:36;suppl 1:S11-S66. Estimated Average Glucose 243 mg/dL [facility] Comment: eAG equivalents for HbA1c percentages: HbA1c(%) ?eAG(mg/dL) 6.0 ?126 6.5 ?140 7.0 ?154 7.5 ?169 8.0 ?183 8.5 ?197 9.0 ?212 9.5 ?226 10.0 ? 240 Limitations: The eAG calculation has not been validated on women, individuals below 18 years old and above 70 years old, and individuals with hemoglobinopathies. Additional resources are available on the ADA website: ??http://professional.diabetes.org/glucosecalculator.aspx Thomas MORALES, Mark J, Gasper R, et al. ??Translating the A1C assay into estimated average glucose values. ??Diabetes Care 2008:31(8):6647-7805. Blood specimen (specimen) 01/24/2013 12:34 PM EDT 01/24/2013 12:41 PM EDT Narrative Resulting Agency Comment Spec In Lab Bobby Amos MD CHEMISTRY ORDERABL ES Performing Organization Address City/State/[facility] Co [place] Phone Number [facility] documented in this encounter Visit Diagnoses Diagnosis Type 2 diabetes mellitus- Primary Type II or unspecified type diabetes mellitus without mention of complication, not stated as uncontrolled documented in this encounter Care Teams Racking Machine Operator Relationship Specialty Start Date End Date Angie Mantilla MD [facility] [address] [place] [address] PCP - General 10/15/10 07/05/18 documented as of this encounter
--- OUTSIDE RECORDS SUMMARY | 2024-09-19 13:10 | XMS_ITS | Encounter Summary ---
Author Organization [facility] [place] [address] Care Team Providers Care Medical Logistics Specialist Name Role Phone Angie Mantilla MD Primary Care Provider [phone] Encounter Details Date Type Department Care Team (Latest Contact Info) Description 02/17/2016 3:00 PM EDT Laboratory Appointment Lab [address] [place] [address] Diabetes mellitus type 2, uncomplicated; Type 2 diabetes mellitus without complication Social History Tobacco Use Types Packs/Day Years [...] Procedure Name Priority Date/Time Associated Diagnosis Comments HEMOGLOBIN A1C Routine 02/17/2016 2:57 PM EDT Diabetes mellitus type 2, uncomplicated documented in this encounter Results * (ABNORMAL) Hemoglobin A1c (02/17/2016 2:57 PM EDT) Hemoglobin A1c 7.3(H) 4.3 - 5.6 % [facility] Comment: Reference Range: 4.3 - [...] Mellitus, Diabetes Care 2013; 36: Suppl. 1, K07-70 Estimated Average Glucose 163 mg/dL [facility] Comment: eAG equivalents for HbA1c percentages: HbA1c(%) ?eAG(mg/dL) 6.0 ?126 6.5 ?140 7.0 ?154 7.5 ?169 8.0 ?183 8.5 ?197 9.0 ?212 9.5 ?226 10.0 ? 240 Limitations: The eAG calculation has not been validated on women, individuals below 18 years old and above 70 years old, and individuals with hemoglobinopathies. Additional resources are available on the ADA website: http://LivelyFeed.com/DHMCadacalc Thomas MORALES, Mark J, Gasper R, et al. ??Translating the A1C assay into estimated average glucose values. ??Diabetes Care 2008:31(8):9593-4494. Blood specimen (specimen) 02/17/2016 2:57 PM EDT 02/17/2016 3:13 PM EDT Narrative Resulting Agency Comment Spec In Lab Ramirez Ogden MD CHEMISTRY ORDERABLES [facility] [place] [address] documented in this encounter Visit Diagnoses Diagnosis Diabetes mellitus type 2, uncomplicated Type II or unspecified type diabetes mellitus without mention of complication, not stated as uncontrolled Type 2 diabetes mellitus without complication documented in this encounter Care Teams Medical Logistics Specialist Relationship Specialty Start Date End Date Niemira, Angie A, MD [facility] [address] [place] [address] PCP - General 10/15/10 07/05/18 documented as of this encounter
--- OUTSIDE RECORDS SUMMARY | 2024-09-19 13:10 | XMS_ITS | Encounter Summary ---
Author Organization [facility] Address [facility] [place] [address] Care Team Providers Care Embroidery Operator Name Role Phone Angie Mantilla MD Primary Care Provider [phone] Reason for Visit * Reason Comments Follow-up Encounter Details Date Type Department Care Team (Late st Contact Info) Description 10/30/2014 2:30 PM EST Office [place] [address] Irina Herrera MD [facility] [place] [address] DM type 2 (diabetes mellitus, type 2) Discharge Disposition: Home Social History Tobacco Use Types Packs/Day Years [...] Sign Reading Time Taken Comments Blood Pressure 128/72 10/30/2014 3:28 PM EST Pulse 75 10/30/2014 3:28 PM EST Temperature 36.7 ??C (98 ??F) 10/30/2014 3:28 PM EST Respiratory Rate - - Oxygen Saturation 97% 10/30/2014 3:28 PM EST Inhaled Oxygen Concentration - - Weight 85.3 kg (188 lb) 10/30/2014 3:28 PM EST Height 163.8 cm (5' 4.5) 10/30/2014 3:28 PM EST Body Mass Index 31.77 10/30/2014 3:28 PM EST documented in this encounter Progress Notes * Irina Herrera MD - 10/28/2014 12:48 PM EST PRIMARY CARE PROVIDER: Angie Mantilla M.D. CC: Here for type 2 DM Date of Dx: 2000 Regimen ____ oral agents only ____ basal insulin __x__ basal and meal insulin/pump Diagnosis codes 250.03 ___ Type 1 250.02 _x___Type 2 Glucose test strip brand: accu chek aviva Number of Tests prescribed per day _x__ 2 ___ 3 ___ 4 ___ 5-8 ___>8 Prescriber: _ MYLES Ogden MD _CRISTÓBAL Puckett _ Anthony Peter MD _ Joaquim Gonzalez MD x_ K MD Stacey Justification for more than 3 tests a day ____ prevent severe hypoglycemia ____ prevent severe hyperglycemia ____ widely fluctuating blood sugars ____ overnight hypoglycemia Duration of need ___ lifetime until ___/___/___ Last Hga1c 7.4, 04/21; 7.6, 10/22; 10.1%, 01/19 Regimen: metformin 1000 bid, victoza 1.8/d, levemir 20 bid, novolog 6-12 ac, CF 20, >140-at breakfast and supper. Complications: dentist-09/21 ; eyes-06/22, no DR ; Cr-0.89, 06/21 ; ma- ; neuropathy-no ; CAD-no; lipids- TChol 187, HDL- 64, LDL-90, 10/22 DM health maintenance: beta deric-no ; ASA-81 ; ANNETTE/ARB-lisinopril 10 ; statin-pravastatin 10 ; flu shot-2013 ; pneomovax-2007; smoking-no; TSH-1.69, 10/22 Ms. Tamayo had been doing well since her last visit until September 2014 when she got an upper respiratory infection, ended up on a Zithromax Ryan and finally felt better, but was sick for almost two weeks and was having high blood sugars in the 200 to 250 range during that. Otherwise, she checks her blood sugars twice a day. Mornings are running 100 to 130 and supper 130 to 170. No hypoglycemia. EXERCISE: She is doing a little bit of snowshoeing. Her diet; for breakfast, usually an egg, a vegetable, and a starch, so she had an egg, broccoli, and Fijian muffin today. For lunch, a tuna sandwich and an orange. For supper, chicken, broccoli, toast, and peanut butter, and afternoon snack yesterday was popcorn. Complication evaluation is up-to-date, she is doing well. PAST MEDICAL HISTORY: Type 2 diabetes, hyperlipidemia. PAST SURGICAL HISTORY: Tubal ligation. Current Outpatient Prescriptions on File Prior to Visit Medication Sig Dispense Refill ??? Insulin Waterflow, Disposable, (BD INSULIN PEN NEEDLE UF SHORT) 31 X 5/16 Needle 1 each by Misc.(Non-Drug; Combo Route) route 5 times daily. 500 each 3 ??? insulin aspart (NOVOLOG FLEXPEN) Insulin Pen Inject 6-12 Units subcutaneously 3 times daily (with meals). 30 mL 4 ??? insulin detemir (LEVEMIR FLEXTOUCH) Insulin Pen Inject 20 Units subcutaneously 2 times daily. Dx Code: 250.00 45 mL 3 ??? ACCU-CHEK CHAD PLUS TEST STRP Strip TEST TWO TIMES A DAY USE INSTRUCTED 200 strip 3 ??? lovastatin (MEVACOR) 20 mg tablet Take 20 mg by mouth nightly. ??? Blood Sugar Diagnostic (ACCU-CHEK CHAD PLUS TEST STRP) test strip 1 each by Other route 2 times daily. Use as instructed Dx Code:250.02 200 each 3 ??? Liraglutide (VICTOZA) 0.6 mg/0.1 mL (18 mg/3 mL) PnIj Inject 1.8 mg subcutaneously daily. 9 Syringe 3 ??? metFORMIN (GLUCOPHAGE) 1,000 mg tablet Take 1 tablet by mouth 2 times daily. 180 tablet 3 ??? Calcium 600 mg Cap Take by mouth. ??? Lancets (ONE TOUCH DELICA) Misc 1 each by Misc.(Non-Drug; Combo Route) route 2 times daily. 200each 3 ??? lisinopril (PRINIVIL;ZESTRIL) 10 mg tablet 10MG, PO, Once daily No current facility-administered medications on file prior to visit. Allergies Allergen Reactions ??? Penicillins CIS - SOB, edema, CIS - SOB, edema ??? Amoxicillin Trihydrate CIS - SOB, Edema, CIS - SOB, Edema SOCIAL HISTORY: , x2. She has three children and three grandchildren. 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 She quit smoking in the . Alcohol, once or twice a month. Complete review of systems is negative. She really feels well. PHYSICAL EXAMINATION: Blood pressure 128/72, pulse 75, weight 188 pounds. In general, she looks well. Her skin is smooth, warm, and dry. No ulcerations. Cardiovascular: 2+ pulses. No edema. On neurologic exam, she has good light touch sensation to the monofilament. Psych: Mood and affect are appropriate. Laboratory tests are pending. IMPRESSION: Audra Tamayo is a 62-year-old woman with type 2 diabetes. She is doing well with Levemir, NovoLog, metformin, and Victoza. She has found the Victoza has been very helpful. We will continue those medications for now. She expects hemoglobin A1c may be up a little bit because of her recent infection, so we will not make any changes now. If she notices sugars going higher, she will let me know. She will do some two-hour postprandial sugars and if those are more than 180, she knows to increase the NovoLog for that meal. PLAN: 1. Adjust insulin as noted above. 2. Await labs. 3. Followup in six months with hemoglobin A1c in the [facility] lab. documented in this encounter Plan of Treatment Scheduled Orders Name Type Priority Associated Diagnoses Orde r Schedule Hemoglobin A1c Lab STAT DM type 2 (diabetes mellitus, type 2) Expected: 03/29/2015 (Approximate), Expires: 10/30/2015 documented as of this encounter Procedures Procedure Name Priority Date/Time Associated Diagnosis Comments CREATININE STAT 10/30/2014 3:16 PM EST DM type 2 (diabetes mellitus, type 2) U ALBUMIN/CRE RATIO STAT 10/30/2014 3 :16 PM EST DM type 2 (diabetes mellitus, type 2) TSH STAT 10/30/2014 3:16 PM EST DM type 2 (diabetes mellitus, type 2) LDL CHOLESTEROL, DIRECT STAT 10/30/2014 3:16 PM EST DM type 2 (diabetes mellitus, type 2) HDL/CHOL PROFILE STAT 10/30/2014 3:16 PM EST DM type 2 (diabetes mellitus, type 2) HEMOGLOBIN A1C STAT 10/30/2014 3:16 PM EST DM type 2 (diabetes mellitus, type 2) documented in this encounter Results * LDL Cholesterol, Direct (10/30/2014 3:16 PM EST) LDL Cholesterol, Direct 80 <=99 mg/dL [facility] Comment: The National Cholesterol Education Program (NCEP) has set the following guidelines for LDL Cholesterol: Reference range: ?? Optimal: ?<100 mg/dL ?? Near Optimal/Above Optimal: ?? 100-129 mg/dL ?? Borderline high: ?130-159 mg/dL ?? High: ? 160-189 mg/dL ?? Very high: ?>jz=343 mg/dL JAMEL 2001: 285(19):1065-7227 Blood specimen (specimen) 10/30/2014 3:16 PM EST 10/30/2014 3:25 PM EST Narrative Resulting Agency Comment Spec In Lab Irina Herrera MD CHEMISTRY ORDERAB LES [facility] * HDL/Cholesterol Profile (10/30/2014 3:16 PM EST) Cholesterol, Total 165 <=199 mg/dL [facility] Comment: Recommendations of the NCEP Adult Treatment Panel for the following risk cutoff thresholds for the [place] population: Desirable: <200 mg/dL Borderline High: 200-239 mg/dL High: > or = 240 mg/dL HDL Cholesterol 64 >=40 mg/dL [facility] Comment: Reference range: ??Low HDL: ?? < 40 mg/dL ??Normal: ?40-60 mg/dL ??Desirable: > 60 mg/dL JAMEL 2001; 285(19):3780-2203 Cholesterol/HDL Ratio 2.6 ratio [facility] Comment: A Cholesterol to HDL ratio below 4:1 is desirable. ??Studies suggest that increased CAD risk occurs at ratios above 5 for females and above 6 for men. ? [place] Heart Association ??(http://www.americanheart.org) ? Katie Int Med, 1994; 121:641 ? AM J Med, 1998; 105(1A):48S Blood specimen (specimen) 10/30/2014 3:16 PM EST 10/30/2014 3:25 PM EST Narrative Resulting Agency Comment Spec In Lab Irina Herrera MD CHEMISTRY ORDERAB LES Performing Organization Address [facility] Co de Phone Number [facility] * TSH (10/30/2014 3:16 PM EST) Thyroid Stimulating Hormone 1.64 0.27 - 4.20 mcIU/mL [facility] Blood specimen (specimen) 10/30/2014 3:16 PM EST 10/30/2014 3:25 PM EST Narrative Resulting Agency Comment Spec In Lab Irina Herrera MD CHEMISTRY ORDERAB LES [facility] * Microalbumin, urine, random (10/30/2014 3:16 PM EST) Creatinine, Urine 94 mg/dL [facility] Albumin, Urine 11.2 mg/L CERNE R [facility]ILLENNI[facility] Albumin / Creatinin Ratio, Urine 12 mcg/mg Cr [facility] Comment: Reference Range* Random collection (mcg/mg creatinine) Normal ?<30 Microalbuminuria ?? 30 - 300 Clinical Albuminuria ?? >300 *[place] Diabetes Association. Diabetic Nephropathy. Diabetes Care 1997;(Suppl 1):S24-S27 Exercise within 24 hour, infection, fever, CHF, marked hyperglycemia, and marked hypertension may elevate urinary albumin excretion over baseline values. Urine specimen (specimen) 10/30/2014 3:16 PM EST 10/30/2014 3:27 PM EST Narrative Resulting Agency Comment Spec In Lab Irina Herrera MD URINE ORDERABLES Performing Organization Address [facility]/State/ZIP Co de Phone Number [facility] * Creatinine (10/30/2014 3:16 PM EST) Creatinine 0.87 0.70 - 1.20 mg/dL [facility] Comment: Please note that the pediatric reference intervals supplied above were not validated at [facility]. Results from pediatric patients should be interpreted in conjunction to the patient's age, height and muscle mass. Est Glomerular Filtration Rate >60 >=60 [facility] Comment: This estimated GFR (eGFR) value was [...] the following links into your internet browser. [email or web address] Blood specimen (specimen) 10/30/2014 3:16 PM EST 10/30/2014 3:25 PM EST Narrative Resulting Agency Comment Spec In Lab Irina Herrera MD CHEMISTRY ORDERAB LES [facility] * (ABNORMAL) Hemoglobin A1c (10/30/2014 3:16 PM EST) Hemoglobin A1c 7.7(H) <=5.6 % [facility] Comment: Reference Range: 4.3 - 5.6% 5.7 - 6.4% - Increased Risk of Developing Diabetes Mellitus 6.5% - Consistent with diagnosis of Diabetes Mellitus In the absence of hyperglycemia (i.e. plasma glucose > 200 mg/dL) or classic symptoms of hyperglycemia a repeat measurement of HbA1c should be performed on a separate sample to confirm the diagnosis. Diagnosis and Classification of Diabetes Mellitus, Diabetes Care 2013; 36: Suppl. 1, P77-58 Estimated Average Glucose 174 mg/dL [facility] Comment: eAG equivalents for HbA1c percentages: HbA1c(%) ?eAG(mg/dL) 6.0 ?126 6.5 ?140 7.0 ?154 7.5 ?169 8.0 ?183 8.5 ?197 9.0 ?212 9.5 ?226 10.0 ? 240 Limitations: The eAG calculation has not been validated on women, individuals below 18 years old and above 70 years old, and individuals with hemoglobinopathies. Additional resources are available on the ADA website: http://Biom'Upl.com/DHMCadacalc Thomas MORALES, Mark J, Gasper R, et al. ??Translating the A1C assay into estimated average glucose values. ??Diabetes Care 2008:31(8):7101-6807. Blood specimen (specimen) 10/30/2014 3:16 PM EST 10/30/2014 3:25 PM EST Narrative Resulting Agency Comment Spec In Lab Irina Herrera MD CHEMISTRY ORDERAB LES [facility] documented in this encounter Visit Diagnoses Diagnosis DM type 2 (diabetes mellitus, type 2) Type II or unspecified type diabetes mellitus without mention of complication, not stated as uncontrolled documented in this encounter Care Teams Embroidery Operator Relationship Specialty Start Date End Date Angie Mantilla MD [facility] [address] [place] [address] PCP - General 10/15/10 07/05/18 documented as of this encounter
--- OUTSIDE RECORDS SUMMARY | 2024-09-19 13:10 | XMS_ITS | Encounter Summary ---
Author Organization [facility] Address [facility] [place] [address] Care Team Providers Care Underground Bolting Machine Operator Name Role Phone Angie Mantilla MD Primary Care Provider [phone] Reason for Visit * Reason Onset Date Comments Labs Only 01/25/2013 Encounter Details Date Type Department Care Team (Late st Contact Info) Description 01/25/2013 [place] [address] Irina Herrera MD [facility] [place] [address] Labs Only Social History Tobacco Use Types [...] encounter Miscellaneous Notes * Telephone Encounter - Irina Herrera MD - 01/25/2013 2:02 PM EDT Lab documented in this encounter Plan of Treatment Not on file documented as of this encounter Results * (ABNORMAL) Hemoglobin A1c (06/27/2013 7:18 AM EDT) Hemoglobin A1c 8.6(H) 4.3 - 6.1 % [facility] Comment: The [place] Diabetes Association (ADA) has stated that HbA1c [...] Diabetes Care 2013:36;suppl 1:S11-S66. Estimated Average Glucose 200 mg/dL [facility] Comment: eAG equivalents for HbA1c percentages: HbA1c(%) [...] into estimated average glucose values. ??Diabetes Care 2008:31(8):7938-3760. Blood specimen (specimen) 06/27/2013 7:18 AM EDT 06/27/2013 7:24 AM EDT Narrative Resulting Agency Comment Spec In Lab Irina Herrera MD CHEMISTRY ORDERAB LES [facility] * (ABNORMAL) Basic Metabolic Panel (non-fasting) (06/27/2013 7:18 AM EDT) Glucose 181 60 - 199 mg/dL [facility] Comment:Diabetes: >=200 mg/d L plus symptoms Blood Urea Nitrogen 22(H) 8 - 18 mg/dL [facility] Creatinine 0.87 0.70 - 1.20 mg/dL [facility] Comment: Please note that the pediatric reference intervals supplied above were not validated at [facility]. Results from pediatric patients should be interpreted in conjunction to the patient's age, height and muscle mass. Sodium 138 135 - 145 mmol/L [facility] Potassium 4.1 3.5 - 5.0 mmol/L [facility] Comment: Please note: ??Patients with WBC >100,000 may have falsely elevated Potassium levels. ??For accurate Potassium quantification in these patients send serum separator tube (gold top) for subsequent determinations. ??Contact the Clinical Chemistry Laboratory if there are any questions. Chloride 101 98 - 107 mmol/L [facility] Carbon Dioxide 28 22 - 31 mmol/L [facility] Anion Gap 9 5 - 15 mmol/L [facility] Calcium 10.4 8.5 - 10.5 mg/dL [facility] Est Glomerular Filtration Rate >60 >=60 [facility] Comment: This estimated GFR (eGFR) value was [...] the following links into your internet browser. http://www.nkdep.nih.gov/lab-evaluation.shtml http://www.kidney.org/professionals/ Blood specimen (specimen) 06/27/2013 7:18 AM EDT 06/27/2013 7:24 AM EDT Narrative Resulting Agency Comment Spec In Lab Irina Herrera MD CHEMISTRY ORDERAB LES Performing Organization Address [facility] Co de Phone Number JAN GARCIA * Microalbumin, urine, random (06/27/2013 7:16 AM EDT) Creatinine, Urine 59 mg/dL CE R[facility] MILLENNIUM Albumin, Urine <3.0 mg/L CERNE R MILLENNIUM Albumin / Creatinin Ratio, Urine <5 mcg/mg Cr [facility] Comment: Reference Range* Random collection (mcg/mg creatinine) Normal ?<30 Microalbuminuria ?? 30 - 300 Clinical Albuminuria ?? >300 *[place] Diabetes Association. Diabetic Nephropathy. Diabetes Care 1997;(Suppl 1):S24-S27 Exercise within 24 hour, infection, fever, CHF, marked hyperglycemia, and marked hypertension may elevate urinary albumin excretion over baseline values. Urine specimen (specimen) 06/27/2013 7:16 AM EDT 06/27/2013 7:19 AM EDT Narrative Resulting Agency Comment Spec In Lab Irina Herrera MD URINE ORDERABLES Performing Organization Address [facility] Co de Phone Number JAN GARCIA documented in this encounter Visit Diagnoses Diagnosis DM type 2 (diabetes mellitus, type 2)- Primary Type II or unspecified type diabetes mellitus without mention of complication, not stated as uncontrolled documented in this encounter Care Teams Underground Bolting Machine Operator Relationship Specialty Start Date End Date Agnie Mantilla MD [facility] [address] [place] [address] PCP - General 10/15/10 07/05/18 documented as of this encounter
--- OUTSIDE RECORDS SUMMARY | 2024-09-19 13:10 | XMS_ITS | Encounter Summary ---
Author Organization [facility] Address [facility] [place] [address] Care Team Providers Care Account Receivable Associate Name Role Phone Angie Mantilla MD Primary Care Provider [phone] Reason for Visit * Reason Onset Date Comments Diabetes 10/16/2012 Encounter Details Date Type Department Care Team (Late st Contact Info) Description 10/16/2012 Telephone [place] [phone] Livia Lam LPN Diabetes Social History Tobacco Use Types Packs/Day Years [...] Telephone Encounter - Livia Lam LPN - 10/25/2012 12:58 PM EST Error documented in this encounter Plan of Treatment Not on file documented as of this encounter Visit Diagnoses Not on filedocumented in this encounter Care Teams Account Receivable Associate Relationship Specialty Start Date End Date Angie Mantilla MD [facility] [address] [place] [address] PCP - General 10/15/10 07/05/18 documented as of this encounter
--- OUTSIDE RECORDS SUMMARY | 2024-09-19 13:10 | XMS_ITS | Encounter Summary ---
Author Organization [facility] Address [place] [address] Care Team Providers Care Dry House Wheeler Name Role Phone Angie Mantilla MD Primary Care Provider [phone] Reason for Visit * Reason Onset Date Comments Labs Only 03/13/2012 Encounter Details Date Type Department Care Team (Late st Contact Info) Description 03/13/2012 [place] [phone] Bobby Amos MD [facility] [place] [address] Labs Only Social History Tobacco Use Types [...] encounter Miscellaneous Notes * Telephone Encounter - Guero Robbins - 03/13/2012 1:27 PM EDT LABS ONLY documented in this encounter Plan of Treatment Not on file documented as of this encounter Results * (ABNORMAL) Hemoglobin A1c (08/17/2012 12:25 PM EST) Hemoglobin A1c 10.2(H) 4.3 - 6.1 % [facility] Estimated Average Glucose 246 mg/dL [facility] Comment: eAG equivalents for HbA1c percentages: HbA1c(%) ?eAG(mg/dL) 6.0 ?126 6.5 ?140 7.0 ?154 7.5 ?169 8.0 ?183 8.5 ?197 9.0 ?212 9.5 ?226 10.0 ? 240 Limitations: The eAG calculation has not been validated on women, individuals below 18 years old and above 70 years old, and individuals with hemoglobinopathies. Additional resources are available on the ADA website: ??http://professional.diabetes.org/glucosecalculator.aspx Reference: Thomas MORALES, Mark J, Gasper R, et al. ??Translating the A1C assay into estimated average glucose values. ??Diabetes Care 2008:31(8):8869-4529. Blood specimen (specimen) 08/17/2012 12:25 PM EST 08/17/2012 12:36 PM EST Narrative Resulting Agency Comment Spec In Lab Bobby Amos MD CHEMISTRY ORDERABL ES [facility] documented in this encounter Visit Diagnoses Diagnosis Type 2 diabetes mellitus- Primary Type II or unspecified type diabetes mellitus without mention of complication, not stated as uncontrolled documented in this encounter Care Teams Dry House Wheeler Relationship Specialty Start Date End Date Angie Mantilla MD [facility] [address] [place] [address] PCP - General 10/15/10 07/05/18 documented as of this encounter
--- OUTSIDE RECORDS SUMMARY | 2024-09-19 13:10 | XMS_ITS | Encounter Summary ---
Author Organization [facility] Address [facility] [place] [address] Care Team Providers Care Motion Study Technician Name Role Phone Angie Mantilla MD Primary Care Provider [phone] Encounter Details Date Type Department Care Team (Late st Contact Info) Description 01/11/2016 Notes Only Endocrinology at [facility] [place] [address] Livia Lam LPN Social History Tobacco Use [...] Progress Notes * Livia Lam LPN - 01/11/2016 2:31 PM EDT Gia Weiner >','<< Less Detail',event) href=[email or web address]:;><< Less Detail ?? Gia Weiner ?? Sent: MonJanuary 08, 2016 ??8:27 AM ? To: Livia Lam LPN ? Message ? We left messages for this patient to call and make an appointment but havent heard back. ??im sending her a letter ? -Lavinia documented in this encounter Plan of Treatment Not on file documented as of this encounter Visit Diagnoses Not on filedocumented in this encounter Care Teams Motion Study Technician Relationship Specialty Start Date End Date Angie Mantilla MD [facility] [address] [place] [address] PCP - General 10/15/10 07/05/18 documented as of this encounter
--- OUTSIDE RECORDS SUMMARY | 2024-09-19 13:10 | XMS_ITS | Encounter Summary ---
Author Organization [facility] Address [facility] [place] [address] Care Team Providers Care Haul Driver Name Role Phone Angie Mantilla MD Primary Care Provider [phone] Reason for Visit * Reason Comments Medication Refill Encounter Details Date Type Department Care Team (Late st Contact Info) Description 08/28/2014 Refill [place] [address] Irina Herrera MD [facility] DR ENDOCRINOLOG[place] [address] Social History Tobacco Use Types Packs/Day Years [...] on filedocumented in this encounter Care Teams Haul Driver Relationship Specialty Start Date End Date Angie Mantilla MD [facility] [address] [place] [address] PCP - General 10/15/10 07/05/18 documented as of this encounter
--- OUTSIDE RECORDS SUMMARY | 2024-09-19 13:10 | XMS_ITS | Encounter Summary ---
Author Organization [place] [address] Care Team Providers Care Tool Filer Hand Name Role Phone Angie Mantilla MD Primary Care Provider [phone] Reason for Visit * Reason Onset Date Comments Diabetes 03/15/2012 Encounter Details Date Type Department Care Team (Late st Contact Info) Description 03/15/2012 [place] [phone] Livia Lam LPN Diabetes Social History Tobacco [...] Telephone Encounter - Livia Lam LPN - 03/22/2012 9:38 AM EDT Message on endo nurse line is using Accu chek agustina twice daily. Form faxed to [employer] * Telephone Encounter - Livia Lam LPN - 03/16/2012 1:42 PM EDT Called patient no answer left message on cell voice mall for patient to return my call to verify which test strips patient is using. * Telephone Encounter - Livia Lam LPN - 03/15/2012 11:37 AM EDT Received form from [facility] to verify what test strips patient is using. Called patient no answer left message on cell voice mail for patient to please return call to verify if using One touch ultra test strips or Accu chek Agustina test strips documented in this encounter Plan of Treatment Not on file documented as of this encounter Visit Diagnoses Not on filedocumented in this encounter Care Teams Tool Filer Hand Relationship Specialty Start Date End Date Angie Mantilla MD [facility] [address] [place] [address] PCP - General 10/15/10 07/05/18 documented as of this encounter
--- OUTSIDE RECORDS SUMMARY | 2024-09-19 13:10 | XMS_ITS | Encounter Summary ---
Author Organization Replaced By [facility] Address [facility] [place] [address] Care Team Providers Care Chief Jailer Name Role Phone Angie Mantilla MD Primary Care Provider [phone] Reason for Visit * Reason Comments Diabetes Encounter Details Date Type Department Care Team (Late st Contact Info) Description 06/27/2013 7:00 AM EDT Office [place] [address] Irina Herrera MD [facility] [place] [address] DM type 2 (diabetes mellitus, type 2); Type 2 diabetes mellitus Discharge Disposition: Home Social History Tobacco Use [...] Sign Reading Time Taken Comments Blood Pressure 104/64 06/27/2013 7:51 AM EDT Pulse 77 06/27/2013 7:51 AM EDT Temperature - - Respiratory Rate - - Oxygen Saturation - - Inhaled Oxygen Concentration - - Weight 84.5 kg (186 lb 3.2 oz) 06/27/2013 7:51 A M EDT Height - - Body Mass Index 31.4 01/24/2013 1:13 PM EDT documented in this encounter Progress Notes * Irina Herrera MD - 06/25/2013 4:32 PM EDT PRIMARY CARE PROVIDER: Angie Mantilla M.D. CC: [...] Peter MD _ Joaquim Gonzalez MD x_ Librado Herrera MD Justification for more than 3 tests a day ____ prevent severe hypoglycemia ____ prevent severe hyperglycemia ____ widely fluctuating blood sugars ____ overnight hypoglycemia Duration of need ___ lifetime until ___/___/___ Last Hga1c 10.1%, 01/19 Regimen: metformin 1000 bid, victoza 1.8/d, levemir 35 hs, novolog 6 ac, CF 20, >140 Complications: dentist-06/21 ; eyes-03/21, no DR ; Cr-0.89, 06/21 ; ma- ; neuropathy-no ; CAD-no ; lipids- TChol , HDL- , LDL- DM health maintenance: beta deric-no ; ASA-81 ; ANNETTE/ARB-lisinopril 10 ; statin-pravastatin 10 ; flu shot-2011 ; pneomovax-no ; smoking-no; TSH- Ms. Tamayo is a 62-year-old woman who was seeing Dr. Amos. Dr. Amos is retired, and I will be taking over care. She has had type 2 diabetes since 2000 and since her last visit, has been feeling well. She is checking her blood sugars twice a day. Fastings are usually running 115 to 140. By suppertime, she is up to 250. No hypoglycemia. EXERCISE: She does yoga about once a week. DIET: For breakfast, she had a poached egg, toast, and sausage. For lunch, chicken, avocado, and lettuce on a deli flat piece of bread and an apple, and for supper, chicken stew. No snacking. She is up-to-date with her complication evaluation and for the most part, feeling well but frustrated that the afternoon blood sugars are high, and she cannot really seem to blame it on snacking in the afternoon. She has not checked blood sugars before lunch or after breakfast or after lunch. I think we need to get a better idea when sugars are going high. PAST MEDICAL HISTORY: Type 2 diabetes and hyperlipidemia. PAST SURGICAL HISTORY: Tubal ligation. Current Outpatient Prescriptions on File Prior to Visit Medication Status Sig Dispense Refill ??? Blood Sugar Diagnostic (ACCU-CHEK CHAD PLUS) test strip Active 1 each by Other route 2 times daily. Use as instructed 200 each 3 ??? UNABLE TO FIND Active Med Name: AccuCheck activated strips ??? pravastatin (PRAVACHOL) 10 mg tablet Active Take 10 mg by mouth daily. ??? metFORMIN (GLUCOPHAGE) 1,000 mg tablet Active Take 1 tablet by mouth 2 times daily. 180 tablet 3 ??? insulin detemir (LEVEMIR FLEXPEN) 100 unit/mL (3 mL) pen injection Active Inject 40 Units as directed nightly. 3 mL 3 ??? insulin aspart (NOVOLOG FLEXPEN) 100 unit/mL pen injection Active Inject 6 Units subcutaneouslydaily. Take AC supper 15 mL 3 ??? Liraglutide (VICTOZA) 0.6 mg/0.1 mL (18 mg/3 mL) PnIj Active Inject 1.8 mg subcutaneously daily. 9 Device 3 ??? Calcium 600 mg Cap Active Take by mouth. ??? aspirin 81 mg EC tablet Active Take 81 mg by mouth daily. ??? Lancets (ONE TOUCH DELICA) Misc Active 1 each by Misc.(Non-Drug; Combo Route) route 2 times daily. 200 each 3 ??? lisinopril (PRINIVIL;ZESTRIL) 10 mg tablet Active 10MG, PO, Once daily Allergies Allergen Reactions ??? Penicillins CIS - SOB, edema, CIS - SOB, edema ??? Amoxicillin Trihydrate CIS - SOB, Edema, CIS - SOB, Edema SOCIAL HISTORY: She quit smoking in the 1970s after about two years. Alcohol, once or twice a month. She is and twice. She has three children, a 43-year-old son, a 35-year-old daughter, a 33-year-old son, and three grandchildren. 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 FAMILY HISTORY: Mother at 67 of Alzheimer's. Father at 65 of colon cancer. She has three sisters who are healthy and well. Paternal grandmother had diabetes. REVIEW OF SYSTEMS: Her complete review of systems is negative. She is really feeling very well. PHYSICAL EXAMINATION: On physical exam, her blood pressure is 104/64, pulse 77, and weight 186 pounds and stable. In general, she looks well. HEENT: Extraocular movements intact. No lid lag or stare. Her skin is smooth, warm, and dry. She has some calluses on her heels. Cardiovascular: 2+ pulses. No edema. She has a little swelling and erythema over her right foot just anterior to the lateral malleolus where she said she has been found to have a bone spur and it is slightly tender. On neurologic exam, she has excellent light touch sensation to the monofilament. Psych: Mood and affect are appropriate. LABORATORY TESTS: Creatinine 0.87. Microalbumin and hemoglobin A1c are pending. IMPRESSION: Audra Tamayo is a 62-year-old woman with type 2 diabetes, which is still suboptimally controlled. She is having high blood sugars by the early evening. I think her Levemir insulin may not be lasting long enough. We are going to split the dose into 20 units twice a day. If morning sugars are high, she will increase her evening dose. If afternoon sugars are high, she will increase the morning dose. She is also going to do some before and after meal blood sugars. If she is spiking more than 50 points, she knows she can increase her NovoLog insulin. I have reviewed target pre-meal below 130 to our post-meal below 180. PLAN: 1. Levemir 20 units twice a day. 2. Check some pre and post meal blood sugars. 3. We will see her in followup in four months with hemoglobin A1c, lipids, and TSH in a quick draw lab. documented in this encounter Plan of Treatment Not on file documented as of this encounter Procedures Procedure Name Priority Date/Time Associated Diagnosis Comments HEMOGLOBIN A1C Routine 06/27/2013 7:18 AM EDT DM type 2 (diabetes mellitus, type 2) BASIC METABOLIC PANEL Routine 06/27/2013 7:18 AM EDT DM type 2 (diabetes mellitus, type 2) U ALBUMIN/CRE RATIO Routine 06/27/2013 7 :16 AM EDT DM type 2 (diabetes mellitus, type 2) documented in this encounter Results * HDL/Cholesterol Profile (10/30/2013 2:47 PM EST) [facility] Cholesterol, Total 187 <=199 mg/dL [facility] Comment: Recommendations of the NCEP Adult Treatment Panel for the following risk cutoff thresholds for the [place] population: Desirable: <200 mg/dL Borderline High: 200-239 mg/dL High: > or = 240 mg/dL HDL Cholesterol 64 >=40 mg/dL [facility] Comment: Reference range: ??Low HDL: ?? < 40 mg/dL ??Normal: ?40-60 mg/dL ??Desirable: > 60 mg/dL JAMEL 2001; 285(19):7609-7667 Cholesterol/HDL Ratio 2.[address] [facility] Comment: A Cholesterol to HDL ratio below 4:1 is desirable. ??Studies suggest that increased CAD risk occurs at ratios above 5 for females and above 6 for men. ? [place] Heart Association ??(http://www.americanheart.org) ? Katie Int Med, 1994; 121:641 ? AM J Med, 1998; 105(1A):48S Blood specimen (specimen) 10/30/2013 2:47 PM EST 10/30/2013 2:51 PM EST Narrative Resulting Agency Comment Spec In Lab Irina Herrera MD CHEMISTRY ORDERAB LES [facility] * LDL Cholesterol, Direct (10/30/2013 2:47 PM EST) LDL Cholesterol, Direct 90 <=99 mg/dL [facility] Comment: The National Cholesterol Education Program (NCEP) has set the following guidelines for LDL Cholesterol: Reference range: ?? Optimal: ?<100 mg/dL ?? Near Optimal/Above Optimal: ?? 100-129 mg/dL ?? Borderline high: ?130-159 mg/dL ?? High: ? 160-189 mg/dL ?? Very high: ?>ev=165 mg/dL JAMEL 2001: 285(14):2297-3458 Blood specimen (specimen) 10/30/2013 2:47 PM EST 10/30/2013 2:51 PM EST Narrative Resulting Agency Comment Spec In Lab Irina Herrera MD CHEMISTRY ORDERAB LES Performing Organization Address [facility] de Phone Number JAN GARCIA * TSH (10/30/2013 2:47 PM EST) Thyroid Stimulating Hormone 1.69 0.27 - 4.20 mcIU/mL [facility] Blood specimen (specimen) 10/30/2013 2:47 PM EST 10/30/2013 2:51 PM EST Narrative Resulting Agency Comment Spec In Lab Irina Herrera MD CHEMISTRY ORDERAB LES Performing Organization Address [facility] Co de Phone Number JAN GARCIA * (ABNORMAL) Hemoglobin A1c (10/30/2013 2:47 PM EST) Hemoglobin A1c 7.6(H) <=5.6 % [facility] Comment: As of 2013 the methodology for Hemoglobin A1c testing has changed. This change is accompanied by a new interpretive statement and flags. Please review the new interpretive statement and contact Dr. Duvall or Dr. Mays with questions. Reference Range: 4.3 ? 5.6% 5.7 ? 6.4% - Increased Risk of Developing Diabetes [...] 36: Suppl. 1, S67-74 Estimated Average Glucose 171 mg/dL [facility] Comment: eAG equivalents for HbA1c percentages: [...] into estimated average glucose values. ??Diabetes Care 2008:31(8):5197-9602. Blood specimen (specimen) 10/30/2013 2:47 PM EST 10/30/2013 2:51 PM EST Narrative Resulting Agency Comment Spec In Lab Irina Herrera MD CHEMISTRY ORDERAB LES [facility] * (ABNORMAL) Hemoglobin A1c (06/27/2013 7:18 AM EDT) Hemoglobin A1c 8.6(H) 4.3 - 6.1 % [facility] Comment: The [place] Diabetes Association (ADA) has stated that HbA1c [...] 2013:36;suppl 1:S11-S66. Estimated Average Glucose 200 mg/dL [facility] Comment: eAG equivalents for HbA1c percentages: [...] into estimated average glucose values. ??Diabetes Care 2008:31(8):8480-5544. Blood specimen (specimen) 06/27/2013 7:18 AM EDT 06/27/2013 7:24 AM EDT Narrative Resulting Agency Comment Spec In Lab Irina Herrera MD CHEMISTRY ORDERAB LES CERNER MILLENNIUM * (ABNORMAL) Basic Metabolic Panel (non-fasting) (06/27/2013 7:18 AM EDT) Glucose 181 60 - 199 mg/dL [facility] Comment:Diabetes: >=200 mg/d L plus symptoms Blood Urea Nitrogen 22(H) 8 - 18 mg/dL [facility] MILLENNIUM Creatinine 0.87 0.70 - 1.20 mg/dL [facility] Comment: Please note that the pediatric reference intervals supplied above were not validated at [facility]. Results from pediatric patients should be interpreted [...] MD CHEMISTRY ORDERAB LES Performing Organization Address City/[facility] Co de Phone Number [facility]ERMORA [employer] * Microalbumin, urine, random (06/27/2013 7:16 AM EDT) Creatinine, Urine 59 mg/dL CE RNER MILLENNIUM Albumin, Urine <3.0 mg/L CERNE R MILLENNIUM Albumin / Creatinin Ratio, Urine <5 mcg/mg Cr [facility]ILL[facility]NI[facility] Comment: Reference Range* Random collection (mcg/mg creatinine) Normal ?<30 Microalbuminuria ?? 30 - 300 Clinical Albuminuria ?? >300 *[place] Diabetes Association. Diabetic Nephropathy. Diabetes Care 1997;(Suppl 1):S24-S27 Exercise within 24 hour, infection, fever, CHF, marked hyperglycemia, and marked hypertension may elevate urinary albumin excretion over baseline values. Urine specimen (specimen) 06/27/2013 7:16 AM EDT 06/27/2013 7:19 AM EDT Narrative Resulting Agency Comment Spec In Lab Irina Herrera MD URINE ORDERABLES Performing Organization Address [facility] Co de Phone Number [employer] documented in this encounter Visit Diagnoses Diagnosis DM type 2 (diabetes mellitus, type 2) Type II or unspecified type diabetes mellitus without mention of complication, not stated as uncontrolled Type 2 diabetes mellitus Type II or unspecified type diabetes mellitus without mention of complication, not stated as uncontrolled documented in this encounter Care Teams Chief Jailer Relationship Specialty Start Date End Date Angie Mantilla MD [facility] D [address] [place] [id number] PCP - General 10/15/10 07/05/18 documented as of this encounter
--- OUTSIDE RECORDS SUMMARY | 2024-09-19 13:10 | XMS_ITS | Encounter Summary ---
Author Organization [facility] Address [facility] [place] [address] Care Team Providers Care Deputy Clerk Name Role Phone Angie Mantilla MD Primary Care Provider [phone] Reason for Visit * Reason Onset Date Comments Medication Refill 12/27/2013 Encounter Details Date Type Department Care Team (Late st Contact Info) Description 12/27/2013 [place] [address] Irina Herrera MD [facility] [place] [address] Social History Tobacco Use Types Packs/Day Years [...] on filedocumented in this encounter Care Teams Deputy Clerk Relationship Specialty Start Date End Date Angie Mantilla MD [facility] D [address] [place] [address] PCP - General 10/15/10 07/05/18 documented as of this encounter
--- OUTSIDE RECORDS SUMMARY | 2024-09-19 13:10 | XMS_ITS | Encounter Summary ---
Author Organization [facility] Address [facility] [place] [address] Care Team Providers Care Printer Repair Technician Name Role Phone Angie Mantilla MD Primary Care Provider [phone] Reason for Visit * Reason Onset Date Comments Medication Refill 10/21/2014 Encounter Details Date Type Department Care Team (Late st Contact Info) Description 10/21/2014 Refill [place] [address] Irina Herrera MD [facility] [place] [address] Social History Tobacco Use Types Packs/Day Years [...] Telephone Encounter - Livia Lam LPN - 10/21/2014 2:05 PM EST Message on endo nurse line from patient asking that Rx for pen needles go to [facility] documented in this encounter Plan of Treatment Not on file documented as of this encounter Visit Diagnoses Not on filedocumented in this encounter Care Teams Printer Repair Technician Relationship Specialty Start Date End Date Angie Mantilla MD [facility] [address] [place] [address] PCP - General 10/15/10 07/05/18 documented as of this encounter
--- OUTSIDE RECORDS SUMMARY | 2024-09-19 13:10 | XMS_ITS | Encounter Summary ---
Author Organization [facility] Address [facility] [place] [address] Care Team Providers Care Hides Inspector Name Role Phone Elizabet Tiana Librado HYMAN Primary Care Provider [phone] Reason for Visit * Reason Onset Date Comments Labs Only 10/28/2011 Encounter Details Date Type Department Care Team (Late st Contact Info) Description 10/28/2011 Telephone [place] [id number] Bobby Amos MD [facility] [place] [address] Labs Only Social History Tobacco Use Types [...] this encounter Results * (ABNORMAL) Hemoglobin A1c (03/12/2012 12:26 PM EDT) Hemoglobin A1c 8.8(H) 4.3 - 6.1 % [facility] Estimated Average Glucose 206 mg/dL [facility] Comment: eAG equivalents for HbA1c percentages: [...] into estimated average glucose values. ??Diabetes Care 2008:31(8):7742-7365. Blood specimen (specimen) 03/12/2012 12:26 PM EDT 03/12/2012 12:37 PM EDT Narrative Resulting Agency Comment Spec In Lab Bobby Amos MD CHEMISTRY ORDERABL ES Performing Organization Address City/State/ZIP [place] Phone Number [facility] documented in this encounter Visit Diagnoses Diagnosis Type 2 diabetes mellitus Type II or unspecified type diabetes mellitus without mention of complication, not stated as uncontrolled documented in this encounter Care Teams Hides Inspector Relationship Specialty Start Date End Date Tiana Mcneal, HIGH LEAD YARDER PCP - General Family Medicine 10/20/20 documented as of this encounter
--- OUTSIDE RECORDS SUMMARY | 2024-09-19 13:10 | XMS_ITS | Encounter Summary ---
Author Organization [facility] Address [facility] [place] [address] Care Team Providers Care Manager Of Production Name Role Phone Angie Mantilla MD Primary Care Provider [phone] Reason for Visit * Reason Comments Diabetes Encounter Details Date Type Department Care Team (Late st Contact Info) Description 10/30/2013 3:00 PM EST Office [place] [address] Irina Herrera MD [facility] [place] [address] DM type 2 (diabetes mellitus, type 2); [...] Sign Reading Time Taken Comments Blood Pressure 112/59 10/30/2013 4:07 PM EST Pulse 78 10/30/2013 4:07 PM EST Temperature - - Respiratory Rate - - Oxygen Saturation - - Inhaled Oxygen Concentration - - Weight 83.6 kg (184 lb 6.4 oz) 10/30/2013 4:07 P M EST Height - - Body Mass Index 31.1 01/24/2013 1:13 PM EDT documented in this encounter Patient Instructions * Patient Instructions* Irina Herrera MD - 10/30/2013 4:19 PM EST Recent Results (from the past 24 hour(s)) HEMOGLOBIN A1C Component Value Range Hemoglobin A1C 7.6 (*) <=5.6 % Est Avg Gluc 171 TSH Component Value Range TSH 1.69 0.27 - 4.20 mcIU/mL LDL CHOLESTEROL, DIRECT Component Value Range LDL Chol Direct 90 <=99 mg/dL HDL/CHOL PROFILE Component Value Range Chol, Total 187 <=199 mg/dL HDL 64 >=40 mg/dL Chol/HDL Ratio 2.9 documented in this encounter Progress Notes * Irina Herrera MD - 10/28/2013 9:15 PM EST PRIMARY CARE PROVIDER: Angie Mantilla [...] need ___ lifetime until ___/___/___ Last Hga1c 7.6, 10/22; 10.1%, 01/19 Regimen: metformin 1000 bid, victoza 1.8/d, levemir 20 bid, novolog 6 ac, CF 20, >140-at breakfast and supper. Complications: dentist-09/20- old root canal- implant redo ; eyes-03/21, no DR ; Cr-0.89, 06/21 ; ma-; neuropathy-no ; CAD-no; lipids- TChol 187, HDL- 64, LDL-90, 10/22 DM health maintenance: beta deric-no ; ASA-81 ; ANNETTE/ARB-lisinopril 10 ; statin-pravastatin 10 ; flu shot-2012 ; pneomovax-2007; smoking-no; TSH-1.69, 10/22 Since her last visit, Ms. Tamayo has been doing very well. She did have a fall on [place], but recovered slowly from that. No acute injury. With respect to her diabetes, blood sugars are doing much better. Fastings are running 100 to 140 and supper 120 to 180. She does not take NovoLog insulin at lunchtime because she is working at the correctional facility and she is uncomfortable having the syringes and insulin around, but with the metformin, Victoza, breakfast and supper, insulin and her Levemir twice a day, blood sugars are doing better. No hypoglycemia. EXERCISE: She is doing yoga once or twice a week. DIET: For breakfast, she has been having broccoli and quinoa with an egg and sometimes an Filipino muffin. For lunch, she has a turkey sandwich on a belly flat bread with avocado and lettuce and an apple. For supper last night, a burger, broccoli and a piece of fruit. No other snacking. COMPLICATION EVALUATION: Up-to-date. She is doing well. PAST MEDICAL HISTORY: Type 2 diabetes and hyperlipidemia. PAST SURGICAL HISTORY: Tubal ligation. Current Outpatient Prescriptions on File Prior to Visit Medication Sig Dispense Refill ??? Blood Sugar Diagnostic (ACCU-CHEK CHAD PLUS) test strip 1 each by Other route 2 times daily. Use as instructed 200 each 3 ??? UNABLE TO FIND Med Name: AccuCheck activated strips ??? pravastatin (PRAVACHOL) 10 mg tablet Take 10 mg by mouth daily. ??? metFORMIN (GLUCOPHAGE) 1,000 mg tablet Take 1 tablet by mouth 2 times daily. 180 tablet 3 ??? Liraglutide (VICTOZA) 0.6 mg/0.1 mL (18 mg/3 mL) PnIj Inject 1.8 mg subcutaneously daily. 9 Device 3 ??? Calcium 600 mg Cap Take by mouth. ??? aspirin 81 mg EC tablet Take 81 mg by mouth daily. ??? Lancets (ONE TOUCH DELICA) Misc 1 each by Misc.(Non-Drug; Combo Route) route 2 times daily. 200each 3 ??? lisinopril (PRINIVIL;ZESTRIL) 10 mg tablet 10MG, PO, Once daily Allergies Allergen Reactions ??? Penicillins CIS - SOB, edema, CIS - SOB, edema ??? Amoxicillin Trihydrate CIS - SOB, Edema, CIS - SOB, Edema SOCIAL HISTORY: Quit smoking in the 1970s. Alcohol once or twice a month. and twice, has three children and three grandchildren. 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 REVIEW OF SYSTEMS: Unremarkable. She is really feeling quite well. PHYSICAL EXAMINATION: Her blood pressure is 112/59, pulse 78, and weight 184 pounds. In general, she looks well. Her skin is smooth and warm, but quite dry. No calluses. Cardiovascular: Trace edema. Good peripheral pulses. Neurologic Exam: Good light touch sensation. Psych: Mood and affect appropriate. LABORATORY TESTS: Hemoglobin A1c is 7.6%, total cholesterol 187, HDL 64, LDL 90, and TSH 1.69. IMPRESSION/PLAN: Diabetes, improved remarkably with the Victoza, metformin, and insulin. She will continue working on things, she will let me know if blood sugars are out of target ranges, and otherwise we will see her in followup in about six months. We will get a hemoglobin A1c at that time. documented in this encounter Plan of Treatment Not on file documented as of this encounter Procedures Procedure Name Priority Date/Time Associated Diagnosis Comments TSH STAT 10/30/2013 2:47 PM EST DM type 2 (diabetes mellitus, type 2) Type 2 diabetes mellitus LDL CHOLESTEROL, DIRECT STAT 10/30/2013 2:47 PM EST DM type 2 (diabetes mellitus, type 2) Type 2 diabetes mellitus HDL/CHOL PROFILE STAT 10/30/2013 2:47 PM EST DM type 2 (diabetes mellitus, type 2) Type 2 diabetes mellitus HEMOGLOBIN A1C STAT 10/30/2013 2:47 PM EST DM type 2 (diabetes mellitus, type 2) Type 2 diabetes mellitus documented in this encounter Results * (ABNORMAL) Hemoglobin A1c (05/01/2014 3:32 PM EDT) Hemoglobin A1c 7.4(H) <=5.6 % CECI GARCIA Comment: Reference Range: 4.3 ? 5.6% 5.7 ? [...] Mellitus, Diabetes Care 2013; 36: Suppl. 1, G77-97 Estimated Average Glucose 166 mg/dL JAN GARCIA Comment: eAG equivalents for HbA1c percentages: HbA1c(%) ?eAG(mg/dL) 6.0 ?126 6.5 ?140 7.0 ?154 7.5 ?169 8.0 ?183 8.5 ?197 9.0 ?212 9.5 ?226 10.0 ? 240 Limitations: The eAG calculation has not been validated on women, individuals below 18 years old and above 70 years old, and individuals with hemoglobinopathies. Additional resources are available on the ADA website: http://Cellfire.com/DHMCadacalc Thomas MORALES, Mark J, Gasper R, et al. ??Translating the A1C assay into estimated average glucose values. ??Diabetes Care 2008:31(8):8973-1749. Blood specimen (specimen) 05/01/2014 3:32 PM EDT 05/01/2014 3:38 PM EDT Narrative Resulting Agency Comment Spec In Lab Irina Herrera MD CHEMISTRY ORDERAB LES Performing Organization Address [facility] Co de Phone Number [facility]AN [facility] * HDL/Cholesterol Profile (10/30/2013 2:47 PM EST) Cholesterol, Total 187 <=199 mg/dL CERNER MILLENNIUM Comment: Recommendations of the NCEP Adult Treatment Panel for the following risk cutoff thresholds for the [place] population: Desirable: <200 mg/dL Borderline High: 200-239 mg/dL High: > or = 240 mg/dL HDL Cholesterol 64 >=40 mg/dL CER NER MILLENNIUM Comment: Reference range: ??Low HDL: ?? < 40 mg/dL ??Normal: ?40-60 mg/dL ??Desirable: > 60 mg/dL JAMEL 2001; 285(19):7072-9473 Cholesterol/HDL Ratio 2.9 ratio CERNER MILLENNIUM Comment: A Cholesterol to HDL ratio below 4:1 is desirable. ??Studies suggest that increased CAD risk occurs at ratios above 5 for females and above 6 for men. ? [place] Heart Association ??(http://www.americanheart.org) ? Katie Int Med, 1994; 121:641 ? AM J Med, 1998; 105(1A):48S Blood specimen (specimen) 10/30/2013 2:47 PM EST 10/30/2013 2:51 PM EST Narrative Resulting Agency Comment Spec In Lab Irina Herrera MD CHEMISTRY ORDERAB LES Performing Organization Address [facility] Co de Phone Number JAN HILLIUM * LDL Cholesterol, Direct (10/30/2013 2:47 PM EST) LDL Cholesterol, Direct 90 <=99 mg/dL CERNER MILLENNIUM Comment: The National Cholesterol Education Program (NCEP) has set the following guidelines for LDL Cholesterol: Reference range: ?? Optimal: ?<100 mg/dL ?? Near Optimal/Above Optimal: ?? 100-129 mg/dL ?? Borderline high: ?130-159 mg/dL ?? High: ? 160-189 mg/dL ?? Very high: ?>tg=288 mg/dL JAMEL 2001: 285(27):7347-9557 Blood specimen (specimen) 10/30/2013 2:47 PM EST 10/30/2013 2:51 PM EST Narrative Resulting Agency Comment Spec In Lab Irina Herrera MD CHEMISTRY ORDERAB LES Performing Organization Address [facility] de Phone Number [facility] * TSH (10/30/2013 2:47 PM EST) Thyroid Stimulating Hormone 1.69 0.27 - 4.20 mcIU/mL [facility] Blood specimen (specimen) 10/30/2013 2:47 PM EST 10/30/2013 2:51 PM EST Narrative Resulting Agency Comment Spec In Lab Irina Herrera MD CHEMISTRY ORDERAB LES Performing Organization Address [facility] de Phone Number [facility] * (ABNORMAL) Hemoglobin A1c (10/30/2013 2:47 PM EST) Hemoglobin A1c 7.6(H) <=5.6 % [facility] Comment: As of 2013 the methodology for [...] Mellitus, Diabetes Care 2013; 36: Suppl. 1, S07-02 Estimated Average Glucose 171 mg/dL [facility] Comment: eAG equivalents for HbA1c percentages: [...] the ADA website: ??http://professional.diabetes.org/glucosecalculator.aspx Thomas MORALES, Mark Cleaning, Gasper R, et al. ??Translating the A1C assay into estimated average glucose values. ??Diabetes Care 2008:31(8):0596-9962. Blood specimen (specimen) 10/30/2013 2:47 PM EST 10/30/2013 2:51 PM EST Narrative Resulting Agency Comment Spec In Lab Irina Herrera MD CHEMISTRY ORDERAB LES [facility] documented in this encounter Visit Diagnoses Diagnosis DM type 2 (diabetes mellitus, type 2) Type II or unspecified type diabetes mellitus without mention of complication, not stated as uncontrolled Type 2 diabetes mellitus Type II or unspecified type diabetes mellitus without mention of complication, not stated as uncontrolled documented in this encounter Care Teams Manager Of Production Relationship Specialty Start Date End Date Angie Mantilla MD [facility] [address] [place] [address] PCP - General 10/15/10 07/05/18 documented as of this encounter
--- OUTSIDE RECORDS SUMMARY | 2024-09-19 13:10 | XMS_ITS | Encounter Summary ---
Author Organization [facility] Address [facility] [place] [address] Care Team Providers Care Hot Metal Car Operator Name Role Phone Angie Mantilla MD Primary Care Provider [phone] Reason for Visit * Reason Onset Date Comments Prior Authorization 09/07/2011 ONE TOUCH UL TRA BLUE TEST STRIPTS Encounter Details Date Type Department Care Team (Late st Contact Info) Description 09/07/2011 Telephone [place] [id number] Jalen Leslie MD [facility] [place] [address] Prior Authorization (ONE TOUCH ULTRA BLUE TEST STRIPTS) Social History Tobacco Use Types Packs/Day Years [...] encounter Miscellaneous Notes * Telephone Encounter - Kala Taylor - 09/07/2011 11:29 AM EST Medication Prior Authorization [facility]ENGER Medication name/dose/directions: ONE TOUCH ULTRA BLUE TEST STRIPTS Rationale for request: DIABETES Health plan: [facility] Authorizing provider relations representative name: Faxed to health plan on: CALLED 09/07 FAXING OVER A FORM TO BE FILLED OUT Health plan decision: Denied PA WAS DENIED B/C THE PT IS NOT USING AN INSULIN PUMP AND DOES NOT TEST GREATER THAN 10 TIMES DAILY Quantity approved: Authorization number: Start date: End date: Patient notified? yes Pharmacy notified? no documented in this encounter Plan of Treatment Not on file documented as of this encounter Visit Diagnoses Not on filedocumented in this encounter Care Teams Hot Metal Car Operator Relationship Specialty Start Date End Date Angie Mantilla MD [facility] [address] [place] [address] PCP - General 10/15/10 07/05/18 documented as of this encounter
--- OUTSIDE RECORDS SUMMARY | 2024-09-19 13:10 | XMS_ITS | Encounter Summary ---
Author Organization [facility] Address [facility] [place] [address] Care Team Providers Care Electric Switch Repairer Name Role Phone Angie Mantilla MD Primary Care Provider [phone] Reason for Visit * Reason Comments Diabetes Encounter Details Date Type Department Care Team (Late st Contact Info) Description 05/01/2014 2:30 PM EDT Office Visit [place] [address] Irina Herrera MD [facility] DR ENDOCRIN[place] [address] DM type 2 (diabetes mellitus, type 2) (Primary Dx) Discharge Disposition: Home Social History Tobacco Use [...] Sign Reading Time Taken Comments Blood Pressure 122/77 05/01/2014 3:44 PM EDT Pulse 73 05/01/2014 3:44 PM EDT Temperature - - Respiratory Rate - - Oxygen Saturation - - Inhaled Oxygen Concentration - - Weight 83.5 kg (184 lb) 05/01/2014 3:44 PM EDT Height - - Body Mass Index 31.03 01/24/2013 1:13 PM EDT documented in this encounter Progress Notes * Irina Herrera MD - 04/28/2014 10:02 PM EDT PRIMARY CARE PROVIDER: Angie Mantilla [...] bid, victoza 1.8/d, levemir 20 bid, novolog - ac, CF 20, >140-at breakfast and supper. Complications: dentist-09/20- extraction-thinking of implant redo ; eyes-03/21, no DR ; Cr-0.89, 06/21 ; ma- ; neuropathy-no ; CAD-no; lipids- TChol 187, HDL- 64, LDL-90, 10/22 DM health maintenance: beta deric-no ; ASA-81 ; ANNETTE/ARB-lisinopril 10 ; statin-pravastatin 10 ; flu shot-2012 ; pneomovax-2007; smoking-no; TSH-1.69, 10/22 Since her last visit, Ms. Sims has been doing well. She is checking her blood sugars twice a day, fastings run around 100, supper time around 120, no hypoglycemia. EXERCISE: She does yoga once a week. Often doing a lot of gardening. DIET: Her diet for breakfast, she had a poached egg and some green vegetables. For lunch, turkey, avocado, and lettuce and one slice of bread. For supper, leftover T-bone steak and a green vegetable. She snacked on a little trail mix this afternoon. COMPLICATION EVALUATION: Up-to-date. PAST MEDICAL HISTORY: Type 2 diabetes and hyperlipidemia. PAST SURGICAL HISTORY: Tubal ligation. Current Outpatient Prescriptions Medication Sig Dispense Refill ??? insulin aspart (NOVOLOG FLEXPEN) pen injection Inject 6-12 Units subcutaneously 3 times daily (with meals). ??? lovastatin (MEVACOR) 20 mg tablet Take 20 mg by mouth nightly. ??? Blood Sugar Diagnostic (ACCU-CHEK CHAD PLUS TEST STRP) test strip 1 each by Other route 2 times daily. Use as instructed Dx Code:250.02 200 each 3 ??? insulin detemir (LEVEMIR) pen injection Inject 20 Units subcutaneously 2 times daily. 45 mL 3 ??? Liraglutide (VICTOZA) 0.6 mg/0.1 [...] Edema, CIS - SOB, Edema SOCIAL HISTORY: and x2. Currently lives alone. Has three children. One of her daughter is getting next month. 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 REVIEW OF SYSTEMS: Her review of systems is positive for Monday night this past week, she woke up to go to the bathroom and noticed she was having heart racing and palpitations. No other symptoms. Denies dizziness, lightheadedness, chest pain, shortness of breath, paresis, paresthesias, or weakness. It lasted about 20 minutes. She did check her blood sugar, it was over 400. She realized she had not taken insulin with her supper, which was a special seafood lasagna and desert pastry, so much more carb than usual. Blood sugars came down promptly. She was able to go back to sleep and the episode passed. She has not had any recurrence. No prior episodes and otherwise has been feeling well. The remainder of the review of systems is negative. PHYSICAL EXAMINATION: On physical exam, blood pressure 122/77. Pulse 73. Weight 184 pounds. In general, she looks well. Skin: Smooth, warm, and dry. No ulcerations. Cardiovascular: 2+ pulses. No edema. Rhythm is regular. Neurologic Exam: Excellent light touch sensation to the monofilament. Psych: Mood and affect are appropriate. LABORATORY TESTS: Hemoglobin A1c is pending. IMPRESSION: 1. By home blood glucose testing, blood sugars seem under good control. We will await hemoglobin A1c. We will continue current insulin. 2. Episode of palpitations and tachycardia. Etiology is unclear. Hyperglycemia does not usually cause tachycardia. If the episode recurs, she will let Dr. Mantilla know and she may need to wear an event monitor. PLAN: 1. Await labs. 2. Follow up in six months with hemoglobin A1c, lipids, microalbumin, TSH, and creatinine in the quick draw lab. Results for AUDRA SIMS ( ) as of 05/05/2014 13:46 Ref. Range 05/01/2014 15:32 Hemoglobin A1C Latest Range: <=5.6 % 7.4 (H) Est Avg Gluc No range found 166 documented in this encounter Plan of Treatment Not on file documented as of this encounter Procedures Procedure Name Priority Date/Time Associated Diagnosis Comments HEMOGLOBIN A1C STAT 05/01/2014 3:32 PM EDT DM type 2 (diabetes mellitus, type 2) documented in this encounter Results * LDL Cholesterol, Direct (10/30/2014 3:16 PM EST) LDL Cholesterol, Direct 80 <=99 mg/dL [facility] Comment: The National Cholesterol Education Program (NCEP) has set the following guidelines for LDL Cholesterol: Reference range: ?? Optimal: ?<100 mg/dL ?? Near Optimal/Above Optimal: ?? 100-129 mg/dL ?? Borderline high: ?130-159 mg/dL ?? High: ? 160-189 mg/dL ?? Very high: ?>su=114 mg/dL JAMEL 2001: 285(19):3684-9341 Blood specimen (specimen) 10/30/2014 3:16 PM EST 10/30/2014 3:25 PM EST Narrative Resulting Agency Comment Spec In Lab Irina Herrera MD CHEMISTRY ORDERAB LES [facility] * HDL/Cholesterol Profile (10/30/2014 3:16 PM EST) Cholesterol, Total 165 <=199 mg/dL [facility] Comment: Recommendations of the NCEP Adult Treatment Panel for the following risk cutoff thresholds for the [place] population: Desirable: <200 mg/dL Borderline High: 200-239 mg/dL High: > or = 240 mg/dL HDL Cholesterol 64 >=40 mg/dL [facility] Comment: Reference range: ??Low HDL: ?? < 40 mg/dL ??Normal: ?40-60 mg/dL ??Desirable: > 60 mg/dL JAMEL 2001; 285(19):6775-9240 Cholesterol/HDL Ratio 2.6 ratio [facility] Comment: A Cholesterol to HDL ratio below 4:1 is desirable. ??Studies suggest that increased CAD risk occurs at ratios above 5 for females and above 6 for men. ? [place] Heart Association ??(http://www.americanheart.org) ? Katie Int Med, 1994; 121:641 ? AM J Med, 1998; 105(1A):48S Blood specimen (specimen) 10/30/2014 3:16 PM EST 10/30/2014 3:25 PM EST Narrative Resulting Agency Comment Spec In Lab Irina Herrera MD CHEMISTRY ORDERAB LES Performing Organization Address [facility] Co de Phone Number CERNER MILLENNIUM * TSH (10/30/2014 3:16 PM EST) Thyroid Stimulating Hormone 1.64 0.27 - 4.20 mcIU/mL CERNER MILLENNIUM Blood specimen (specimen) 10/30/2014 3:16 PM EST 10/30/2014 3:25 PM EST Narrative Resulting Agency Comment Spec In Lab Irina Herrera MD CHEMISTRY ORDERAB LES Performing Organization Address [facility] Phone Number CERNER MILLENNIUM * Microalbumin, urine, random (10/30/2014 3:16 PM EST) Creatinine, Urine 94 mg/dL CE RNER MILLENNIUM Albumin, Urine 11.2 mg/L CERNE R MILLENNIUM Albumin / Creatinin Ratio, Urine 12 mcg/mg Cr CERNER MILLENNIUM Comment: Reference Range* Random collection (mcg/mg creatinine) Normal ?<30 Microalbuminuria ?? 30 - 300 Clinical Albuminuria ?? >300 *[place] Diabetes Association. Diabetic Nephropathy. Diabetes Care 1997;(Suppl 1):S24-S27 Exercise within 24 hour, infection, fever, CHF, marked hyperglycemia, and marked hypertension may elevate urinary albumin excretion over baseline values. Urine specimen (specimen) 10/30/2014 3:16 PM EST 10/30/2014 3:27 PM EST Narrative Resulting Agency Comment Spec In Lab Irina Herrera MD URINE ORDERABLES Performing Organization Address [facility] Co de Phone Number CERNER MILLENNIUM * Creatinine (10/30/2014 3:16 PM EST) Creatinine 0.87 0.70 - 1.20 mg/dL [facility] Comment: Please note that the pediatric reference intervals supplied above were not validated at [facility]. Results from pediatric patients should be interpreted in conjunction to the patient's age, height and muscle mass. Est Glomerular Filtration Rate >60 >=60 [facility] Comment: This estimated GFR (eGFR) value was [...] the following links into your internet browser. [email or web address] Blood specimen (specimen) 10/30/2014 3:16 PM EST 10/30/2014 3:25 PM EST Narrative Resulting Agency Comment Spec In Lab Irina Herrera MD CHEMISTRY ORDERAB LES [facility] * (ABNORMAL) Hemoglobin A1c (10/30/2014 3:16 PM EST) Hemoglobin A1c 7.7(H) <=5.6 % CECI GARCIA Comment: Reference Range: 4.3 - 5.6% 5.7 [...] Mellitus, Diabetes Care 2013; 36: Suppl. 1, U62-30 Estimated Average Glucose 174 mg/dL [facility] Comment: eAG equivalents for HbA1c percentages: HbA1c(%) ?eAG(mg/dL) 6.0 ?126 6.5 ?140 7.0 ?154 7.5 ?169 8.0 ?183 8.5 ?197 9.0 ?212 9.5 ?226 10.0 ? 240 Limitations: The eAG calculation has not been validated on women, individuals below 18 years old and above 70 years old, and individuals with hemoglobinopathies. Additional resources are available on the ADA website: http://Croak.it.Skoodat/DHMCadacalc Thomas MORALES, Mark J, Gasper R, et al. ??Translating the A1C assay into estimated average glucose values. ??Diabetes Care 2008:31(8):5503-2408. Blood specimen (specimen) 10/30/2014 3:16 PM EST 10/30/2014 3:25 PM EST Narrative Resulting Agency Comment Spec In Lab Irina Herrera MD CHEMISTRY ORDERAB LES [facility] * (ABNORMAL) Hemoglobin A1c (05/01/2014 3:32 PM [...] Mellitus, Diabetes Care 2013; 36: Suppl. 1, A26-26 Estimated Average Glucose 166 mg/dL JAN GARCIA [...] resources are available on the ADA website: http://Croak.it.Skoodat/DHMCadacalc Thomas MORALES, Mark J, Gasper R, et al. ??Translating the A1C assay into estimated average glucose values. ??Diabetes Care 2008:31(8):9935-5732. Blood specimen (specimen) 05/01/2014 3:32 PM EDT 05/01/2014 3:38 PM EDT Narrative Resulting Agency Comment Spec In Lab Irina Herrera MD CHEMISTRY ORDERAB LES Performing Organization Address City/State/[facility] Co mi Phone Number [facility] documented in this encounter Visit Diagnoses Diagnosis DM type 2 (diabetes mellitus, type 2)- Primary Type II or unspecified type diabetes mellitus without mention of complication, not stated as uncontrolled documented in this encounter Care Teams Electric Switch Repairer Relationship Specialty Start Date End Date Angie Mantilla MD [facility] D [address] [place] [address] PCP - General 10/15/10 07/05/18 documented as of this encounter
--- OUTSIDE RECORDS SUMMARY | 2024-09-19 13:10 | XMS_ITS | Encounter Summary ---
Author Organization [facility] Address [facility] [place] [address] Care Team Providers Care Hide Worker Name Role Phone Angie Mantilla MD Primary Care Provider [phone] Reason for Visit * Reason Onset Date Comments Medication Refill 04/28/2014 Encounter Details Date Type Department Care Team (Late st Contact Info) Description 04/28/2014 Refill [place] [address] Irina Herrera MD [facility] [place] [address] Social History Tobacco Use Types Packs/Day Years [...] on filedocumented in this encounter Care Teams Hide Worker Relationship Specialty Start Date End Date Angie Mantilla MD [facility] [address] [place] [address] PCP - General 10/15/10 07/05/18 documented as of this encounter
--- OUTSIDE RECORDS SUMMARY | 2024-09-19 13:10 | XMS_ITS | Encounter Summary ---
Author Organization [facility] Address [facility] [place] [address] Care Team Providers Care Course Developer Name Role Phone Angie Mantilla MD Primary Care Provider [phone] Reason for Visit * Reason Onset Date Comments Medication Refill 10/16/2012 Encounter Details Date Type Department Care Team (Late st Contact Info) Description 10/16/2012 Ref[place] [address] Bobby Amos MD [facility] [place] [address] Diabetes mellitus (Primary Dx) Social History Tobacco Use Types Packs/Day Years [...] uncontrolled documented in this encounter Care Teams Course Developer Relationship Specialty Start Date End Date Angie Mantilla MD [facility] [address] [place] [address] PCP - General 10/15/10 07/05/18 documented as of this encounter
--- OUTSIDE RECORDS SUMMARY | 2024-09-19 13:10 | XMS_ITS | Encounter Summary ---
Author Organization [facility] [place] [address] Care Team Providers Care Comprehensive Advisor Name Role Phone Angie Mantilla MD Primary Care Provider [phone] Reason for Visit * Reason Onset Date Comments Advice Only 07/15/2013 Encounter Details Date Type Department Care Team (Late st Contact Info) Description 07/15/2013 Telephone [place] [phone] Livia Lam LPN Advice Only Social History Tobacco Use Types Packs/Day [...] Telephone Encounter - Livia Lam LPN - 07/16/2013 8:50 AM EDT Called patient at which time message from Dr Herrera was read to her. Form faxed to patient. Confirmation on fax received. * Telephone Encounter - Irina Herrera MD - 07/15/2013 4:59 PM EDT The slight increase in BUM is likely explained by mild dehydration. I will sign the form. * Telephone Encounter - Livia Lam LPN - 07/15/2013 3:21 PM EDT Returning call to patient has to have yearly physical for work. Was to be done by Jul 06 but she can not get appointment with PCP until 08/19/13. Is asking if Dr Herrera can sign form from 06/27/13 appointment. Patient also asking what her elevated BUN means. documented in this encounter Plan of Treatment Not on file documented as of this encounter Visit Diagnoses Not on filedocumented in this encounter Care Teams Comprehensive Advisor Relationship Specialty Start Date End Date Angie Mantilla MD [facility] [address] [place] [address] PCP - General 10/15/10 07/05/18 documented as of this encounter
--- OUTSIDE RECORDS SUMMARY | 2024-09-19 13:10 | XMS_ITS | Encounter Summary ---
Author Organization [facility] Address [facility] [place] [address] Care Team Providers Care Glass Technician Name Role Phone Angie Mantilla MD Primary Care Provider [phone] Reason for Visit * Reason Onset Date Comments Medication Refill 03/12/2014 Encounter Details Date Type Department Care Team (Late st Contact Info) Description 03/12/2014 [place] [address] Irina Herrera MD [facility] [place] [address] Social History Tobacco Use Types Packs/Day Years [...] on filedocumented in this encounter Care Teams Glass Technician Relationship Specialty Start Date End Date Angie Mantilla MD [facility] [address] [place] [address] PCP - General 10/15/10 07/05/18 documented as of this encounter
--- OUTSIDE RECORDS SUMMARY | 2024-09-19 13:10 | XMS_ITS | Encounter Summary ---
Author Organization [facility] Address [facility] [place] [address] Care Team Providers Care Business Services Sales Representative Name Role Phone Angie Mantilla MD Primary Care Provider [phone] Reason for Visit * Reason Onset Date Comments Medication Refill 04/29/2013 Encounter Details Date Type Department Care Team (Late st Contact Info) Description 04/29/2013 [place] [address] Irina Herrera MD [facility] [place] [address] Social History Tobacco Use Types Packs/Day Years [...] Telephone Encounter - Livia Lam LPN - 04/30/2013 1:17 PM EDT Per patient uses Accu chek [facility] * Telephone Encounter - Livia Lam LPN - 04/29/2013 1:50 PM EDT Patient calls testing two times per day Rx to go to [facility] home delivery. Not sure which test stripswill call back when at home with this information * Telephone Encounter - Livia Lam LPN - 04/29/2013 1:46 PM EDT Message on endo nurse line asking for Rx for Accu chek test strip. Unable to reach patient at work number (rings busy) left message on home voice mail for patient to return my call to clarify which accu chek she is using, how many per day and where Rx is to go. documented in this encounter Plan of Treatment Not on file documented as of this encounter Visit Diagnoses Not on filedocumented in this encounter Care Teams Business Services Sales Representative Relationship Specialty Start Date End Date Angie Mantilla MD [facility] [address] [place] [address] PCP - General 10/15/10 07/05/18 documented as of this encounter
--- OUTSIDE RECORDS SUMMARY | 2024-09-19 13:10 | XMS_ITS | Encounter Summary ---
Author Organization [place] [address] Care Team Providers Care Vice President Global Digital Marketing Name Role Phone Angie Mantilla MD Primary Care Provider [phone] Reason for Visit * Reason Onset Date Comments Prior Authorization 08/25/2015 Encounter Details Date Type Department Care Team (Late st Contact Info) Description 08/25/2015 [place] [phone] Gia Weiner Prior Authorization Social History Tobacco [...] * Telephone Encounter - Gia Weiner - 08/25/2015 8:44 AM EST Medication Prior Authorization [facility] Medication name/dose/directions: VICTOZA 18MG/3ML - INJ 1.8MG DAILY Rationale for request: TYPE II DM Health plan: [employer] Authorizing outside sales representative name: FARIDEH Faxed to health plan on: 08/25/15 Health plan decision: PA not needed. Refilled too soon Quantity approved: Authorization number: Start date: End date: Patient notified? Pharmacy notified? documented in this encounter Plan of Treatment Not on file documented as of this encounter Visit Diagnoses Not on filedocumented in this encounter Care Teams Vice President Global Digital Marketing Relationship Specialty Start Date End Date Angie Mantilla MD [facility] [address] [place] [address] PCP - General 10/15/10 07/05/18 documented as of this encounter
--- OUTSIDE RECORDS SUMMARY | 2024-09-19 13:10 | XMS_ITS | Encounter Summary ---
Author Organization [facility] Address [facility] [place] [address] Care Team Providers Care Services Executive Name Role Phone Angie Mantilla MD Primary Care Provider [phone] Encounter Details Date Type Department Care Team (Late st Contact Info) Description 06/12/2015 [place] [phone] Livia Lam LPN Social History Tobacco Use [...] Telephone Encounter - Livia Lam LPN - 06/17/2015 3:38 PM EDT Per patient has not had a glucometer in awutle. Does not know what she was using Rx for one touch sent to [facility]. Patient will call back with new insurance. Call transferred to clinical secretary to schedule f/u appointment.07/20/15 * Telephone Encounter - Livia Lam LPN - 06/17/2015 2:30 PM EDT R/c to patient On conference. Message left for patient to r/c and ask that nurse be paged. * Telephone Encounter - Livia Lam LPN - 06/17/2015 12:54 PM EDT R/c to patient. Not in her office. Message left for patient to r/c to nurse. * Telephone Encounter - Livia Lam LPN - 06/12/2015 3:32 PM EDT Message on endo nurse line from patient asking for glucometer and test strips. Will come down and pick one up. R/c to patient Not at work. Left on home v/m for patient to r/c to nurse. ? Pharmacy and which glucometer and test strips she wants. documented in this encounter Plan of Treatment Not on file documented as of this encounter Visit Diagnoses Not on filedocumented in this encounter Care Teams Services Executive Relationship Specialty Start Date End Date Angie Mantilla MD [facility] [address] [place] [address] PCP - General 10/15/10 07/05/18 documented as of this encounter
--- OUTSIDE RECORDS SUMMARY | 2024-09-19 13:10 | XMS_ITS | Encounter Summary ---
Author Organization [facility] Address [facility] [place] [address] Care Team Providers Care Prop And Scenery Maker Name Role Phone Angie Mantilla MD Primary Care Provider [phone] Reason for Visit * Reason Comments Follow-up Encounter Details Date Type Department Care Team (Late st Contact Info) Description 08/17/2012 12:30 PM EST Office [place] [address] Bobby Amos MD [facility] [place] [address] Type 2 diabetes mellitus (Primary Dx) Discharge Disposition: Home Social History [...] Sign Reading Time Taken Comments Blood Pressure 138/54 08/17/2012 1:17 PM EST Pulse - - Temperature - - Respiratory Rate - - Oxygen Saturation - - Inhaled Oxygen Concentration - - Weight 81.2 kg (179 lb) 08/17/2012 1:17 PM EST Height - - Body Mass Index 29.79 03/12/2012 1:00 PM EDT documented in this encounter Progress Notes * Bobby Amos MD - 08/17/2012 3:31 PM EST Component Latest Ref Rng 08/17/2012 Hemoglobin A1C 4.3 - 6.1 % 10.2 (H) Est Avg Gluc mg/dL 246 Audra presents for followup of her type 2 diabetes. She had been taking Levemir 30 units at bedtime, Victoza 1.8 mg per day, and metformin 1000 mg b.i.d. In general, her control has been variable, although her morning sugars generally had been running above 120. She almost always is high post supper with a mean value of approximately 220. Over the past week, she ran out of her Levemir and has not been taking it. Without the Levemir her morning sugars have been running 300 to 400. Her A1c has also risen from 8.8 to 10.2%. I think this is at least partially due to the very high blood sugars over the past week, but in general, her control has not been optimal. She discontinued her Wellbutrin, which she was taking for depression and has occasional night sweats for which she will see Dr. Mantilla. Her meals consist of poached egg and sweet potato for breakfast, a sandwich with low carbohydrate bread for lunch, and a variable supper, but usually one that contains a moderate amount of carbohydrate. Sometimes, she eats even more carbohydrate when she eats out such as recently when she had pasta and bread. I discussed the importance of letting us know when she needs Levemir. I sent down a prescription to the [facility] today to get her one pen as she waits for her mail order Levemir to arrive. She will start back on the Levemir tonight. In addition to the Levemir, I gave her a prescription for NovoLog and recommended that she take 6 units prior to supper on a daily basis. She will use the NovoLog FlexPen for that. If her post supper blood sugars continue to be over 160, I recommended that she call in for further adjustment of the NovoLog. I expressed to her the importance of good glycemic control and hopefully she can improve by her next visit. I spent 25 of this 30 minute visit on taking a detailed history and developing and advising patient on treatment strategies to improve glycemic control and to reduce micro, and macrovascular complications. documented in this encounter Plan of Treatment Not on file documented as of this encounter Procedures Procedure Name Priority Date/Time Associated Diagnosis Comments HEMOGLOBIN A1C Routine 08/17/2012 12:25 PM EST Type 2 diabetes mellitus documented in this encounter Results * (ABNORMAL) Hemoglobin A1c (08/17/2012 12:25 PM EST) Hemoglobin A1c 10.2(H) 4.3 - 6.1 % [facility] Estimated Average Glucose 246 mg/dL [facility] Comment: eAG equivalents for HbA1c percentages: HbA1c(%) [...] into estimated average glucose values. ??Diabetes Care 2008:31(8):1464-1199. Blood specimen (specimen) 08/17/2012 12:25 PM EST 08/17/2012 12:36 PM EST Narrative Resulting Agency Comment Spec In Lab Bobby Amos MD CHEMISTRY ORDERABL ES [facility]ARCIA documented in this encounter Visit Diagnoses Diagnosis Type 2 diabetes mellitus- Primary Type II or unspecified type diabetes mellitus without mention of complication, not stated as uncontrolled documented in this encounter Care Teams Prop And Scenery Maker Relationship Specialty Start Date End Date Angie Mantilla MD [facility] [address] [place] [address] PCP - General 10/15/10 07/05/18 documented as of this encounter
--- OUTSIDE RECORDS SUMMARY | 2024-09-19 13:10 | XMS_ITS | Encounter Summary ---
Author Organization [facility] Address [facility] [place] [address] Care Team Providers Care Organizational Development Manager Name Role Phone Angie Mantilla MD Primary Care Provider [phone] Encounter Details Date Type Department Care Team (Late st Contact Info) Description 12/25/2014 Telephone Endocrinology at [facility] [place] [phone] Livia Lam LPN Social History Tobacco Use [...] Telephone Encounter - Livia Lam LPN - 12/25/2014 11:04 AM EDT Called patient with response from insurance Victoza denied preferred [place]. Patient states I was on that in the past. It didn't work . Documented in office note 08/19/[address] Ibarra PA to be done. Patient and kosher sealer R.D. notified. documented in this encounter Plan of Treatment Not on file documented as of this encounter Visit Diagnoses Not on filedocumented in this encounter Care Teams Organizational Development Manager Relationship Specialty Start Date End Date Angie Mantilla MD [facility] [address] [place] [address] PCP - General 10/15/10 07/05/18 documented as of this encounter
--- OUTSIDE RECORDS SUMMARY | 2024-09-19 13:10 | XMS_ITS | Encounter Summary ---
Author Organization [facility] Address [facility] [place] [address] Care Team Providers Care Head Of Data Name Role Phone Angie Mantilla MD Primary Care Provider [phone] Reason for Visit * Reason Onset Date Comments Medication Refill 05/12/2015 Encounter Details Date Type Department Care Team (Late st Contact Info) Description 05/12/2015 Ref[place] [address] Alex Miller MD [facility] [place] [address] Social History Tobacco Use Types Packs/Day Years [...] Telephone Encounter - Livia Lam LPN - 05/12/2015 1:35 PM EDT Call from patient PA approved for Novolog but co pay is $500. can't afford Per Dr Miller he will do Rx for Humalog to see if cost will be less documented in this encounter Plan of Treatment Not on file documented as of this encounter Visit Diagnoses Not on filedocumented in this encounter Care Teams Head Of Data Relationship Specialty Start Date End Date Angie Mantilla MD [facility] [address] [place] [address] PCP - General 10/15/10 07/05/18 documented as of this encounter
--- OUTSIDE RECORDS SUMMARY | 2024-09-19 13:10 | XMS_ITS | Encounter Summary ---
Author Organization [facility] Address [facility] [place] [address] Care Team Providers Care Metallic Yarn Slitting Machine Operator Name Role Phone Angie Mantilla MD Primary Care Provider [phone] Reason for Visit * Reason Onset Date Comments Medication Refill 04/28/2014 Encounter Details Date Type Department Care Team (Late st Contact Info) Description 04/28/2014 Refill [place] [address] Irina Herrera MD [facility] [place] [address] Social History Tobacco Use Types Packs/Day Years [...] on filedocumented in this encounter Care Teams Metallic Yarn Slitting Machine Operator Relationship Specialty Start Date End Date Angie Mantilla MD [facility] [address] [place] [address] PCP - General 10/15/10 07/05/18 documented as of this encounter
--- OUTSIDE RECORDS SUMMARY | 2024-09-19 13:10 | XMS_ITS | Encounter Summary ---
Author Organization [facility] Address [facility] [place] [address] Care Team Providers Care Business Line Manager Name Role Phone Angie Mantilla MD Primary Care Provider [phone] Reason for Visit * Reason Comments Diabetes Encounter Details Date Type Department Care Team (Late st Contact Info) Description 01/24/2013 12:30 PM EDT Office [place] [address] Bobby Amos MD [facility] [place] [address] Type 2 diabetes mellitus (Primary Dx) Discharge [...] Sign Reading Time Taken Comments Blood Pressure 116/69 01/24/2013 1:13 PM EDT Pulse 73 01/24/2013 1:13 PM EDT Temperature - - Respiratory Rate - - Oxygen Saturation - - Inhaled Oxygen Concentration - - Weight 83 kg (183 lb) 01/24/2013 1:13 PM EDT Height 164 cm (5' 4.57) 01/24/2013 1:13 PM EDT Body Mass Index 30.86 01/24/2013 1:13 PM EDT documented in this encounter Patient Instructions * Patient Instructions* Halina Boo LPN - 01/24/2013 1:24 PM EDT Welcome to [employer], your secure online access to your electronic medical record at [facility]. Using [employer] you will be able to send messages to your providers, view your test results, renew prescriptions, schedule appointments, and much more. Follow these instructions to enter your personal [employer] account for the first time: 1. Start your internet browser and type [email or web address] into the address bar. 2. In the New User box on the right-hand side of the Welcome page click the link that states, ???I have an activation code.?? 3. On the Identification page, follow these steps: a) Enter your [employer] activation code: [email or web address] b) Expires: 03/10/2013 1:24 PM IMPORTANT: This Activation Code will on the above mentioned date. If you do not sign up for [employer] by this date, you will need to request another activation code. c) Enter your date of , using the calendar tool provided. d) Enter your Zip code. e) Select ???submit?? to go to the next page. 4. On the Create Account page, follow these steps: a) Create a [employer] username. This can???t be changed, so choose one you won???t forget. b) Create a password that???s at least six characters long, and that contains at least two numbers.Your password can be changed at any time. Confirm your password by entering it once more. c) Enter your email address. This will be used to alert you to new information. Confirm your email address by entering it once more. d) Enter your security question. This will be used if you forget your password. e) Enter your security answer. Confirm your security answer by entering it once more. f) Select ???submit?? to view your electronic medical record. If you have any questions about [employer] or your Access Code, please call for [place], for [place] or for [place]. If you need technical support, please e-mail [email or web address]. Remember, my[employer]-H is NOT for urgent needs! Always dial 911 for medical emergencies. documented in this encounter Progress Notes * Bobby Amos MD - 01/24/2013 5:17 PM EDT CLARIFICATION NEEDED: PLEASE CHECK 1 LORIE Zhu presents for followup of her type 2 diabetes. She continues using Levemir 30 units at bedtime, metformin 1000 mg twice a day, and Victoza 1.8 mg per day. She has been using NovoLog preprandially in a sporadic fashion taking 6 units as needed for poorly defined elevated blood sugars. She was only testing her blood sugar in the morning, but more recently has been checking before breakfast and supper. Her morning sugars have been running between 150 and 200 and before supper she has been running between 200 and 300. These elevated values were confirmed by her A1c which continues to be out of range at 10.1%. She has had no hypoglycemic reactions and has gained 4 pounds since her last visit. In addition to her diabetes medication, she takes 10 mg of pravastatin and 10 mg of lisinopril. I reviewed her diet which sounds reasonably balanced. Her most recent recall shows that she had an egg, 2 sausage plus a vegetables for breakfast. Lunch consists of salad with turkey egg and one bread and a diet coke, she did have a cookie for dessert. Supper consists of half a cup of brown rice, vegetables, and chicken. She does not drink any significant amount of alcohol. I discussed her level of control, which is clearly inadequate. At this point, I suggested the following changes and gave her written instruction. The first was to routinely take 6 units of NovoLog before each meal three times a day. The second was to use her correction factor of 20, if her blood sugars exceed 140 before meals I gave her written scale up to a blood sugar of 300 to add NovoLog to her basal preprandial insulin doses. I will have her see Dr. Herrera, and followup in four months, since I will be retiring. 25 of the 30 minutes of this visit were spent counseling and discussing, and adjusting her medications. I specifically focused on adjusting her insulin at this visit because of her poor glycemic control. documented in this encounter Plan of Treatment Not on file documented as of this encounter Procedures Procedure Name Priority Date/Time Associated Diagnosis Comments DIFFERENTIAL, AUTOMATED Routine 01/24/2013 12:34 PM EDT CBC (WITH DIFF) Routine 01/24/2013 12:34 PM EDT Type 2 diabetes mellitus TSH Routine 01/24/2013 12:34 PM EDT Type 2 diabetes mellitus HEMOGLOBIN A1C Routine 01/24/2013 12:34 PM EDT Type 2 diabetes mellitus BASIC METABOLIC PANEL Routine 01/24/2013 12:34 PM EDT Type 2 diabetes mellitus documented in this encounter Results * Differential, Automated (01/24/2013 12:34 PM EDT) Neutrophil % 62.5 34.0 - 71.0 % CERNER MILLENNIUM Neutrophil Absolute 4.08 1.50 - 6.30 x10(3)/mcL CERNER MILLENNIUM Lymph % 28.8 19.0 - 53.0 % CERNER MILLENNIUM Lymphocytes Abs 1.9 1.0 - 3.6 x10(3)/mcL CERNER MILLENNIUM Monocyte % 5.8 4.0 - 13.0 % CERNER MILLENNIUM Monocyte Abs 0.4 0.2 - 1.0 x10(3)/mcL CERNER MILLENNIUM Eos % 2.1 0.0 - 7.0 % CERNER MILLENNIUM Eosinophils Abs 0.1 0.0 - 0.5 x10(3)/mcL CERNER MILLENNIUM Basophil % 0.5 0.0 - 2.0 % CERNER MILLENNIUM Baso Absolute 0.0 0.0 - 0.2 x10(3)/mcL CERNER MILLENNIUM Immature Gran % 0.30 0.00 - 0.66 % CERNER MILLENNIUM Comment: Immature granulocytes(IG's)percentage and absolute count will include metamyelocytes, myelocytes, and promyelocytes. Blood smears from CBCs yielding IG's will be scanned manually for concordance. If this scan disagrees with the automated IG or if promyelocytes are noted, a manual differential will be performed. Immature Gran Absolute 0.02 0.00 - 0.05 x10(3)/mcL CERNER MILLENNIUM Blood specimen (specimen) 01/24/2013 12:34 PM EDT 01/24/2013 12:41 PM EDT Bobby Amos MD HEMATOLOGY ORDERAB LES JAN HILLIUM * CBC (with Diff) (01/24/2013 12:34 PM [...] Lab Bobby Amos MD HEMATOLOGY ORDERAB LES JAN [facility]ILLI[facility] * TSH (01/24/2013 12:34 PM EDT) Thyroid Stimulating Hormone 1.12 0.27 - 4.20 mcIU/mL CERNER MILLENNIUM Blood specimen (specimen) 01/24/2013 12:34 PM EDT 01/24/2013 12:41 PM EDT Narrative Resulting Agency Comment Spec In Lab Bobby Amos MD CHEMISTRY ORDERABL ES CERNER MILLENNIUM * Basic Metabolic Panel (non-fasting) (01/24/2013 12:34 PM EDT) Glucose 148 60 - 199 mg/dL CERNER MILLENNIUM Comment:Diabetes: >=200 mg/d L plus symptoms Blood Urea Nitrogen 15 8 - 18 mg/dL CERNER MILLENNIUM Creatinine 0.83 0.70 - 1.20 mg/dL CERNER MILLENNIUM Comment: Please note that the pediatric reference intervals supplied above were not validated at [facility]. Results from pediatric patients should be interpreted in conjunction to the patient's age, height and muscle mass. Sodium 141 135 - 145 mmol/L CERNER MILLENNIUM Potassium 4.2 3.5 - 5.0 mmol/L [...] Bobby Amos MD CHEMISTRY ORDERABL ES [facility] * (ABNORMAL) Hemoglobin A1c (01/24/2013 12:34 PM EDT) Hemoglobin A1c 10.1(H) 4.3 - 6.1 % JAN AGRCIA Comment: The [place] Diabetes Association (ADA) has stated that HbA1c [...] 2013:36;suppl 1:S11-S66. Estimated Average Glucose 243 mg/dL [facility] Comment: eAG equivalents for HbA1c percentages: HbA1c(%) [...] into estimated average glucose values. ??Diabetes Care 2008:31(8):9113-1705. Blood specimen (specimen) 01/24/2013 12:34 PM EDT 01/24/2013 12:41 PM EDT Narrative Resulting Agency Comment Spec In Lab Bobby Amos MD CHEMISTRY ORDERABL ES JAN [facility] documented in this encounter Visit Diagnoses Diagnosis Type 2 diabetes mellitus- Primary Type II or unspecified type diabetes mellitus without mention of complication, not stated as uncontrolled documented in this encounter Care Teams Business Line Manager Relationship Specialty Start Date End Date Angie Mantilla MD ANGY D [address] [place] [address] PCP - General 10/15/10 07/05/18 documented as of this encounter
--- OUTSIDE RECORDS SUMMARY | 2024-09-19 13:10 | XMS_ITS | Encounter Summary ---
Author Organization [facility] Address [facility] [place] [address] Care Team Providers Care Cut Out And Marking Machine Operator Name Role Phone Angie Mantilla MD Primary Care Provider [phone] Reason for Visit * Reason Onset Date Comments Medication Refill 12/22/2014 Encounter Details Date Type Department Care Team (Late st Contact Info) Description 12/22/2014 Ref[place] [address] Irina Herrera MD [facility] [place] [address] Social History Tobacco Use Types Packs/Day Years [...] Telephone Encounter - Livia Lam LPN - 12/22/2014 11:54 AM EDT Per patient new insurance. No longer using mail order Rx for 30 day supply to now go to [facility]. documented in this encounter Plan of Treatment Not on file documented as of this encounter Visit Diagnoses Not on filedocumented in this encounter Care Teams Cut Out And Marking Machine Operator Relationship Specialty Start Date End Date Angie Mantilla MD ANGY Daniel [address] [place] [address] PCP - General 10/15/10 07/05/18 documented as of this encounter
--- OUTSIDE RECORDS SUMMARY | 2024-09-19 13:10 | XMS_ITS | Encounter Summary ---
Author Organization [facility] Address [facility] [place] [address] Care Team Providers Care Coin Machine Assembler Name Role Phone Angie Mantilla MD Primary Care Provider [phone] Reason for Visit * Reason Comments Medication Refill Encounter Details Date Type Department Care Team (Late st Contact Info) Description 08/08/2012 Ref[place] [address] Bobby Amos MD [facility] [place] [address] Type 2 diabetes mellitus (Primary Dx) Social History Tobacco Use [...] uncontrolled documented in this encounter Care Teams Coin Machine Assembler Relationship Specialty Start Date End Date Angie Mantilla MD [facility] D [address] [place] [address] PCP - General 10/15/10 07/05/18 documented as of this encounter
--- OUTSIDE RECORDS SUMMARY | 2024-09-19 13:10 | XMS_ITS | Encounter Summary ---
Author Organization [facility] Address [facility] [place] [address] Care Team Providers Care Drug Regulatory Affairs Specialist Name Role Phone Tiana Mcneal CELL ATTENDANT HELPER Primary Care Provider [phone] Reason for Visit * Reason Comments Medication Refill Encounter Details Date Type Department Care Team (Late st Contact Info) Description 02/08/2016 [place] [address] Irina Herrera MD [facility] [address] [place] [address] Social History Tobacco Use Types Packs/Day Years [...] on filedocumented in this encounter Care Teams Drug Regulatory Affairs Specialist Relationship Specialty Start Date End Date Tiana Mcneal APRN PCP - General Family Medicine 10/20/20 documented as of this encounter
--- OUTSIDE RECORDS SUMMARY | 2024-09-19 13:10 | XMS_ITS | Encounter Summary ---
Author Organization [facility] Address [facility] [place] [address] Care Team Providers Care Gps Field Data Collector Name Role Phone Angie Mantilla MD Primary Care Provider [phone] Reason for Visit * Reason Onset Date Comments Medication Refill 09/25/2014 Encounter Details Date Type Department Care Team (Late st Contact Info) Description 09/25/2014 [place] [address] Irina Herrera MD [facility] [place] [address] Social History Tobacco Use Types Packs/Day Years [...] on filedocumented in this encounter Care Teams Gps Field Data Collector Relationship Specialty Start Date End Date Angie Mantilla MD ANGY D [address] [place] [address] PCP - General 10/15/10 07/05/18 documented as of this encounter
--- OUTSIDE RECORDS SUMMARY | 2024-09-19 13:10 | XMS_ITS | Encounter Summary ---
Author Organization [facility] Address [facility] [place] [address] Care Team Providers Care Wrapper Stemmer Hand Name Role Phone Angie Mantilla MD Primary Care Provider [phone] Reason for Visit * Reason Comments Follow-up Encounter Details Date Type Department Care Team (Late st Contact Info) Description 03/12/2012 12:00 PM EDT Office [place] [address] Bobby Amos MD [facility] [address] [place] [address] Type 2 diabetes mellitus; Diabetes mellitus Discharge Disposition: Home Social History Tobacco [...] Sign Reading Time Taken Comments Blood Pressure 140/70 03/12/2012 1:00 PM EDT Pulse 77 03/12/2012 1:00 PM EDT Temperature - - Respiratory Rate - - Oxygen Saturation - - Inhaled Oxygen Concentration - - Weight 82.7 kg (182 lb 6.4 oz) 03/12/2012 1:00 P M EDT Height 165.1 cm (5' 5) 03/12/2012 1:00 PM EDT Body Mass Index 30.35 03/12/2012 1:00 PM EDT documented in this encounter Progress Notes * Bobby Amos MD - 03/12/2012 2:01 PM EDT Audra presents for followup of her type 2 diabetes. She is currently taking Levemir 24 units at bedtime, Victoza 1.8 mg/day in the morning, metformin 1000 mg per day, and glipizide 5 mg per day. Her morning sugars are generally running in the 120 range, and she does no additional blood sugars later in the day. She did have one week of sugars in the 200 range recently when she had a viral syndrome. I reviewed her diet in some detail with her. There is a fair amount of variation in her carbohydrate intake from meal to meal. For breakfast, for example, she has either oatmeal or an omelet, quite different carbohydrate levels. For lunch, she may have a sandwich and fruit or she may have a salad with nuts, again a discrepancy in carbohydrate. Supper is her largest meal. She tends to have a stew-like meal with onions, tomato, and so on, with occasional bread as well. Her A1c is still somewhat elevated at 8.8%. I discussed the fact that level is not acceptable, and we would like to get closer to 7. This will require additional dietary means and more careful monitoring of her blood sugars. I, therefore, suggested the following changes; one, is to discontinue her glipizide, which is probably not adding to her therapy. Two, is to increase her metformin to a 1000 mg b.i.d. rather than a single 1000-mg dose per day. The third is to eat the lower carbohydrate content at her meals to reduce her postprandial glucose levels. To document her post-supper blood sugars, I also strongly recommended that she check her blood sugar two hours after supper in an attempt to keep it less than 140 mg/dL. 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 She also showed me her lipid values done by her primary physician, . Her LDL was 107, her HDL was 50, and her triglycerides were 92. Dr. Mantilla had recommended a statin, although Audra did not start the medication. I discussed the pros and cons of a statin therapy and her LDL goals. She does not have a strong family history of premature coronary disease, although she has several risk factors, including age, diabetes, and the postmenopausal state. I, therefore, recommended the possibility of taking one of the less potent statins, such as pravastatin 20 mg per day to see if she can achieve an LDL in the 80 range. She sill have Dr Mantilla write this prescription if she agrees.All in all, she may also get a beneficial effect of anti-inflammatory benefit of statins. I will see her in four months to follow up on her diabetes and repeat her A1c at that time. documented in this encounter Plan of Treatment Not on file documented as of this encounter Procedures Procedure Name Priority Date/Time Associated Diagnosis Comments HEMOGLOBIN A1C STAT 03/12/2012 12:26 PM EDT Type 2 diabetes mellitus documented in this encounter Results * (ABNORMAL) Hemoglobin A1c (03/12/2012 12:26 PM EDT) Hemoglobin A1c 8.8(H) 4.3 - 6.1 % [facility] Estimated Average Glucose 206 mg/dL [facility] Comment: eAG equivalents for HbA1c [...] into estimated average glucose values. ??Diabetes Care 2008:31(8):3789-3646. Blood specimen (specimen) 03/12/2012 12:26 PM EDT 03/12/2012 12:37 PM EDT Narrative Resulting Agency Comment Spec In Lab Bobby Amos MD CHEMISTRY ORDERABL ES [facility] documented in this encounter Visit Diagnoses Diagnosis Type 2 diabetes mellitus Type II or unspecified type diabetes mellitus without mention of complication, not stated as uncontrolled Diabetes mellitus Type II or unspecified type diabetes mellitus without mention of complication, not stated as uncontrolled documented in this encounter Care Teams Wrapper Stemmer Hand Relationship Specialty Start Date End Date Angie Mantilla MD [facility] [address] [place] [address] PCP - General 10/15/10 07/05/18 documented as of this encounter
--- OUTSIDE RECORDS SUMMARY | 2024-09-19 13:10 | XMS_ITS | Encounter Summary ---
Author Organization [facility] [address] Care Team Providers Care University Services Program Associate Name Role Phone Angie Mantilla MD Primary Care Provider [phone] Reason for Visit * Reason Onset Date Comments Prior Authorization 12/25/2014 Encounter Details Date Type Department Care Team (Late st Contact Info) Description 12/25/2014 Telephone [place] [address] Gia Weiner Prior Authorization Social History Tobacco [...] * Telephone Encounter - Gia Weiner - 12/25/2014 1:48 PM EDT Medication Prior Authorization [facility] Medication name/dose/directions: VICTOZA 0.6MG/0.1ML, INJ 1.8MG SUBQ DAILY Rationale for request: TYPE II DM Health plan: [facility] Authorizing patient accounting representative name: FARIDEH Faxed to health plan on: 12/25/14 Health plan decision: Approved Quantity approved: Authorization number: [id number] Start date: 12/25/14 End date: Patient notified? no Pharmacy notified? yes * Telephone Encounter - Gia Weiner - 12/25/2014 10:12 AM EDT PHARMACY CALLED TO INFORM US THAT PA WAS NEEDED FOR PATIENTS JAVIER RICHARDSONEARLENE IS PREFERRED BY INSURANCE INFORMED BERNY AND WILL CHANGE MEDICATION documented in this encounter Plan of Treatment Not on file documented as of this encounter Visit Diagnoses Not on filedocumented in this encounter Care Teams University Services Program Associate Relationship Specialty Start Date End Date Angie Mantilla MD ANGY Sanchez [address] [place] [address] PCP - General 10/15/10 07/05/18 documented as of this encounter
--- OUTSIDE RECORDS SUMMARY | 2024-09-19 13:10 | XMS_ITS | Encounter Summary ---
Author Organization [facility] Address [facility] [place] [address] Care Team Providers Care Parent Educator Name Role Phone Angie Mantilla MD Primary Care Provider [phone] Reason for Visit * Reason Comments Diabetes Encounter Details Date Type Department Care Team (Late st Contact Info) Description 08/05/2015 8:00 AM EDT Office [place] [address] Irina Herrera MD [facility] [place] [address] Type 2 diabetes mellitus without complication Social [...] Sign Reading Time Taken Comments Blood Pressure 123/75 08/05/2015 7:44 AM EDT Pulse 77 08/05/2015 7:44 AM EDT Temperature - - Respiratory Rate - - Oxygen Saturation - - Inhaled Oxygen Concentration - - Weight 85.8 kg (189 lb 3.2 oz) 08/05/2015 7:44 A M EDT Height 163.8 cm (5' 4.49) 08/05/2015 7:44 AM ED T Body Mass Index 31.99 08/05/2015 7:44 AM EDT documented in this encounter Progress Notes * Irina Herrera MD - 08/01/2015 12:28 PM EDT PRIMARY CARE PROVIDER: Angie Mantilla M.D. CC: Here for type 2 DM Date of Dx: 2000 Regimen ____ oral agents only ____ basal insulin __x__ basal and meal insulin/pump Diagnosis codes 250.03 ___ Type 1 250.02 _x___Type 2 Glucose test strip brand: one touch Number of Tests prescribed per day _x__ [...] need ___ lifetime until ___/___/___ Last Hga1c 7.5, 07/23; 7.4, 04/21; 7.6, 10/22; 10.1%, 01/19 Regimen: metformin 1000 bid, victoza 1.8/d, levemir 20 bid, novolog 6-12 ac, CF 20, >140-at breakfast and supper. Complications: dentist-03/23; eyes-06/22- upcoming 07/23, no DR ; Cr-0.79, 07/23 ; ma- ; neuropathy-no; CAD-no; lipids- TChol 152, 07/23, HDL- 57, 07/23, LDL-90, 10/22 DM health maintenance: beta deric-no ; ASA-81 ; ANNETTE/ARB-lisinopril 10 ; statin-pravastatin 10 ; flu shot-2013; pneomovax-2007; smoking-no; TSH-12.46, 07/23 Since her last visit, Ms. Tamayo has been doing very well. She is checking her blood sugars twice a day. Mornings are usually running about 120 to 150, suppertime 150 to 200. No hypoglycemia. She is tolerating the metformin, Victoza, Levemir, and NovoLog well and she is exercising. She is doing a lot of gardening in the summer, now she is walking. In the winter, she will be back to snowshoeing. She tries to stack. Her diet, for breakfast she had a pork steak with broccoli. For lunch, a tuna sandwich with avocado and a banana and for supper broccoli cheese soup. No snacking. COMPLICATION EVALUATION: Her eye exam is upcoming. She has not had any retinopathy, nephropathy, or neuropathy and her lipids are under good control. PAST MEDICAL HISTORY: Type 2 diabetes, hyperlipidemia. PAST SURGICAL HISTORY: Tubal ligation. Current Outpatient Prescriptions on File Prior to Visit Medication Sig Dispense Refill ??? Blood-Glucose Meter (ONETOUCH ULTRA2) Kit 1 each by [facility]Non-Drug; Combo Route) route as needed for Other. 1 each 0 ??? Blood Sugar Diagnostic (ONETOUCH ULTRA TEST) Strip 1 each by Other route 3 times daily. Use as instructed 300 each 3 ??? Lancets Misc 1 each by [facility]Non-Drug; Combo Route) route 3 times daily. 300 each 3 ??? Insulin Lispro (HUMALOG KWIKPEN) Insulin Pen Inject 6-12 Units subcutaneously 3 times daily (with meals). 45 mL 3 ??? insulin aspart (NOVOLOG FLEXPEN) Insulin Pen Inject 6-12 Units subcutaneously 3 times daily (with meals). 30 mL 4 ??? insulin detemir (LEVEMIR FLEXTOUCH) Insulin Pen Inject 20 Units subcutaneously 2 times daily. Dx Code: 250.00 45 mL 3 ??? Liraglutide (VICTOZA) 0.6 mg/0.1 mL (18 mg/3 mL) Pen Injector Inject 1.8 mg subcutaneously daily. 3 Syringe 11 ??? Insulin Wiggins, Disposable, (BD INSULIN PEN NEEDLE UF SHORT) 31 X 5/16 Needle 1 each by [facility]Non-Drug; Combo Route) route 5 times daily. 500 each 3 ??? lovastatin (MEVACOR) 20 mg tablet Take 20 mg by mouth nightly. ??? metFORMIN (GLUCOPHAGE) 1,000 mg tablet Take 1 tablet by mouth 2 times daily. 180 tablet 3 ??? Calcium 600 mg Cap Take by mouth. ??? 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 She quit smoking in the . Alcohol, once or twice a month. REVIEW OF SYSTEMS: Negative. She really feels quite well. On physical exam, her blood pressure is 123/75, pulse 77, and weight 189. In general, she is a well-developed woman, in no acute distress. Her skin is smooth, warm, and dry. A little callus on the heels, but no ulcerations. Cardiovascular: 2+ pulses. No edema. On neurologic exam, good light touch sensation to the monofilament. Psych: Mood and affect appropriate. LABORATORY TESTS: Hemoglobin A1c 7.5, creatinine 0.73, total cholesterol 152, HDL 57, TSH 2.46. IMPRESSION/PLAN: Diabetes, remains in good control on the current regimen. Ms. Tamayo knows her target ranges of blood sugars. If they are consistently higher, she will let us know. She is careful with her diet and exercise program and up-to-date on her complication evaluation. She will continue her current regimen. We will have her return to see Rut Pinon in six months. documented in this encounter Plan of Treatment Not on file documented as of this encounter Results * Microalbumin, urine, random (08/05/2015 8:35 AM EDT) Creatinine, Urine 52 mg/dL GABRIEL DUEÑASENNIUM Albumin, Urine 8.4 mg/L CECI Jett MILLROXANNEIUM Albumin / Creatinin Ratio, Urine 16 mcg/mg Cr JAN GARCIA Comment: Reference Range* Random collection (mcg/mg creatinine) Normal ?<30 Microalbuminuria ?? 30 - 300 Clinical Albuminuria ?? >300 *[place] Diabetes Association. Diabetic Nephropathy. Diabetes Care 1997;(Suppl 1):S24-S27 Exercise within 24 hour, infection, fever, CHF, marked hyperglycemia, and marked hypertension may elevate urinary albumin excretion over baseline values. Urine specimen (specimen) 08/05/2015 8:35 AM EDT 08/05/2015 8:42 AM EDT Narrative Resulting Agency Comment Spec In Lab Irina Herrera MD URINE ORDERABLES Performing Organization Address [facility] Co de Phone Number [facility] * TSH (08/05/2015 7:23 AM EDT) Thyroid Stimulating Hormone 2.46 0.27 - 4.20 mcIU/mL [facility] Blood specimen (specimen) 08/05/2015 7:23 AM EDT 08/05/2015 7:26 AM EDT Narrative Resulting Agency Comment Spec In Lab Irina Herrera MD CHEMISTRY ORDERAB LES Performing Organization Address [facility] Co de Phone Number [facility] * HDL/Cholesterol Profile (08/05/2015 7:23 AM EDT) Cholesterol, Total 152 <=199 mg/dL [facility] Comment: Recommendations of the NCEP Adult Treatment Panel for the following risk cutoff thresholds for the [place] population: Desirable: <200 mg/dL Borderline High: 200-239 mg/dL High: > or = 240 mg/dL HDL Cholesterol 57 >=40 mg/dL [facility] Comment: Reference range: ??Low HDL: ?? < 40 mg/dL ??Normal: ?40-60 mg/dL ??Desirable: > 60 mg/dL JAMEL 2001; 285(19):9024-9497 Cholesterol/HDL Ratio 2.7 ratio [facility] Comment: A Cholesterol to HDL ratio below 4:1 is desirable. ??Studies suggest that increased CAD risk occurs at ratios above 5 for females and above 6 for men. ? [place] Heart Association ??(http://www.americanheart.org) ? Katie Int Med, 1994; 121:641 ? AM J Med, 1997; 105(1A):48S Blood specimen (specimen) 08/05/2015 7:23 AM EDT 08/05/2015 7:26 AM EDT Narrative Resulting Agency Comment Spec In Lab Irina Herrera MD CHEMISTRY ORDERAB LES Performing Organization Address City/[facility] Co de Phone Number JAN GARC[facility] * Creatinine (08/05/2015 7:23 AM EDT) Creatinine 0.73 0.70 - 1.20 mg/dL [facility] Comment: Please note that the pediatric reference intervals supplied above were not validated at [facility]. Results from pediatric patients should be interpreted in conjunction to the patient's age, height and muscle mass. Est Glomerular Filtration Rate >60 >=60 [facility] Comment: This estimated GFR (eGFR) value was [...] the following links into your internet browser. [email or web address] Blood specimen (specimen) 08/05/2015 7:23 AM EDT 08/05/2015 7:26 AM EDT Narrative Resulting Agency Comment Spec In Lab Irina Herrera MD CHEMISTRY ORDERAB LES Performing Organization Address [facility] Co de Phone Number JAN GARCIA * (ABNORMAL) Hemoglobin A1c (08/05/2015 7:23 AM EDT) Hemoglobin A1c 7.5(H) 4.3 - 5.6 % [facility] Comment: Reference Range: 4.3 - 5.6% 5.7 [...] Mellitus, Diabetes Care 2013; 36: Suppl. 1, D07-48 Estimated Average Glucose 169 mg/dL [facility] Comment: eAG equivalents for HbA1c percentages: HbA1c(%) ?eAG(mg/dL) 6.0 ?126 6.5 ?140 7.0 ?154 7.5 ?169 8.0 ?183 8.5 ?197 9.0 ?212 9.5 ?226 10.0 ? 240 Limitations: The eAG calculation has not been validated on women, individuals below 18 years old and above 70 years old, and individuals with hemoglobinopathies. Additional resources are available on the ADA website: http://BuildingIQ.com/DHMCadacalc Thomas MORALES, Mark J, Gasper R, et al. ??Translating the A1C assay into estimated average glucose values. ??Diabetes Care 2008:31(8):8157-0062. Blood specimen (specimen) 08/05/2015 7:23 AM EDT 08/05/2015 7:26 AM EDT Narrative Resulting Agency Comment Spec In Lab Irina Herrera MD CHEMISTRY ORDERAB LES [facility] documented in this encounter Visit Diagnoses Diagnosis Type 2 diabetes mellitus without complication documented in this encounter Care Teams Parent Educator Relationship Specialty Start Date End Date Angie Mantilla MD [facility] [address] [place] [address] PCP - General 10/15/10 07/05/18 documented as of this encounter
--- OUTSIDE RECORDS SUMMARY | 2024-09-19 13:10 | XMS_ITS | Encounter Summary ---
Author Organization [facility] Address [facility] [place] [address] Care Team Providers Care Sheriff Officer Name Role Phone Angie Mantilla MD Primary Care Provider [phone] Reason for Visit * Reason Onset Date Comments Medication Refill 01/24/2013 Encounter Details Date Type Department Care Team (Late st Contact Info) Description 01/24/2013 [place] [address] Bobby Amos MD [facility] [place] [address] Diabetes mellitus (Primary Dx) Social History Tobacco [...] uncontrolled documented in this encounter Care Teams Sheriff Officer Relationship Specialty Start Date End Date Angie Mantilla MD [facility] [address] [place] [address] PCP - General 10/15/10 07/05/18 documented as of this encounter
--- OUTSIDE RECORDS SUMMARY | 2024-09-19 13:10 | XMS_ITS | Encounter Summary ---
Author Organization [facility] Address [facility] [place] [address] Care Team Providers Care Sugar Coating Hand Name Role Phone Angie Mantilla MD Primary Care Provider [phone] Reason for Visit * Reason Onset Date Comments Medication Refill 04/30/2013 Encounter Details Date Type Department Care Team (Late st Contact Info) Description 04/30/2013 Ref[place] [address] Irina Herrera MD [facility] [place] [address] Social History Tobacco Use Types Packs/Day Years [...] on filedocumented in this encounter Care Teams Sugar Coating Hand Relationship Specialty Start Date End Date Angie Mantilla MD [facility] [address] [place] [address] PCP - General 10/15/10 07/05/18 documented as of this encounter
--- OUTSIDE RECORDS SUMMARY | 2024-09-19 13:10 | XMS_ITS | Encounter Summary ---
Author Organization [facility] Address [facility] [address] Care Team Providers Care Resources Representative Name Role Phone Angie Mantilla MD Primary Care Provider [phone] Reason for Visit * Reason Onset Date Comments Medication Refill 02/26/2015 Encounter Details Date Type Department Care Team (Late st Contact Info) Description 02/26/2015 Ref[place] [address] Irina Herrera MD [facility] [place] [address] Social History Tobacco Use Types Packs/Day Years [...] Telephone Encounter - Livia Lam LPN - 02/26/2015 3:53 PM EDT Message on endo nurse line from patient asking that Rx for Novolog go to [facility] documented in this encounter Plan of Treatment Not on file documented as of this encounter Visit Diagnoses Not on filedocumented in this encounter Care Teams Resources Representative Relationship Specialty Start Date End Date Angie Mantilla MD [facility] [address] [place] [address] PCP - General 10/15/10 07/05/18 documented as of this encounter
--- OUTSIDE RECORDS SUMMARY | 2024-09-19 13:10 | XMS_ITS | Encounter Summary ---
Author Organization [facility] Address [facility] [place] [address] Care Team Providers Care Lace Inspector Name Role Phone Angie Mantilla MD Primary Care Provider [phone] Reason for Visit * Reason Onset Date Comments Medication Refill 06/17/2015 Encounter Details Date Type Department Care Team (Late st Contact Info) Description 06/17/2015 [place] [address] Irina Herrera MD [facility] [place] [address] Social History Tobacco Use Types Packs/Day Years [...] on filedocumented in this encounter Care Teams Lace Inspector Relationship Specialty Start Date End Date Angie Mantilla MD [facility] [address] [place] [address] PCP - General 10/15/10 07/05/18 documented as of this encounter
--- OUTSIDE RECORDS SUMMARY | 2024-09-19 13:10 | XMS_ITS | Encounter Summary ---
Author Organization [facility] Address [facility] [place] [address] Care Team Providers Care Analyst Name Role Phone Angie Mantilla MD Primary Care Provider [phone] Reason for Visit * Reason Onset Date Comments Diabetes 10/14/2011 Encounter Details Date Type Department Care Team (Late st Contact Info) Description 10/14/2011 Telephone [place] [address] Livia Lam LPN Diabetes Social History Tobacco [...] Telephone Encounter - Livia Lam LPN - 10/14/2011 9:59 AM EST Patient calls it is the victoza that she was taking 1.8 mg twice daily has cut back to 1.2 mg twicedaily. Vomiting almost daily since increase to 1.8 mg two weeks ago. We discussed that medication was prescribed for once daily not twice daily. Per V/O Dr Ogden patient was told to stay at victoza 1.2 mg once daily for one week. If no nausea orvomiting increase to 1.8 mg daily. If nausea and vomiting continues patient is to call us back. Patient agrees with plan of care. * Telephone Encounter - Livia Lam LPN - 10/14/2011 8:08 AM EST Returning call to patient no answer left message on cell voice mail for patient to return my call need clarification on her message. Believe she meant that she had to decrease victoza from 1.8 mg to 1.2 mg Not levemir from 18 mg to 12 mg due to problems with stomach as she stated in her message. documented in this encounter Plan of Treatment Not on file documented as of this encounter Visit Diagnoses Not on filedocumented in this encounter Care Teams Analyst Relationship Specialty Start Date End Date Angie Mantilla MD [facility] [address] [place] [address] PCP - General 10/15/10 07/05/18 documented as of this encounter
--- OUTSIDE RECORDS SUMMARY | 2024-09-19 13:10 | XMS_ITS | Encounter Summary ---
Author Organization [facility] Address [facility] [place] [address] Care Team Providers Care Mental Retardation Aide Name Role Phone Angie Mantilla MD Primary Care Provider [phone] Reason for Visit * Reason Onset Date Comments Medication Refill 09/25/2014 Encounter Details Date Type Department Care Team (Late st Contact Info) Description 09/25/2014 [place] [address] Alex Miller MD [facility] DR [place] [address] Social History Tobacco Use Types Packs/Day Years [...] filedocumented in this encounter Care Teams Mental Retardation Aide Relationship Specialty Start Date End Date Angie Mantilla MD [facility] [address] [place] [address] PCP - General 10/15/10 07/05/18 documented as of this encounter
--- OUTSIDE RECORDS SUMMARY | 2024-09-19 13:10 | XMS_ITS | Encounter Summary ---
Author Organization [facility] Address [facility] [address] Care Team Providers Care Marine Extension Agent Name Role Phone Angie Mantilla MD Primary Care Provider [phone] Reason for Visit * Reason Onset Date Comments Medication Refill 03/14/2012 Encounter Details Date Type Department Care Team (Late st Contact Info) Description 03/14/2012 Refill [place] [address] Bobby Amos MD [facility] DR ENDOCRIN[place] [address] Type 2 diabetes mellitus (Primary Dx) Social [...] uncontrolled documented in this encounter Care Teams Marine Extension Agent Relationship Specialty Start Date End Date Angie Mantilla MD [facility] [address] [place] [address] PCP - General 10/15/10 07/05/18 documented as of this encounter
--- OUTSIDE RECORDS SUMMARY | 2024-09-19 13:10 | XMS_ITS | Encounter Summary ---
Author Organization [facility] Address [facility] [place] [address] Care Team Providers Care Reel Hooker Name Role Phone Angie Mantilla MD Primary Care Provider [phone] Reason for Visit * Reason Onset Date Comments Medication Refill 03/13/2014 Encounter Details Date Type Department Care Team (Late st Contact Info) Description 03/13/2014 Refill [place] [address] Irina Herrera MD [facility] [place] [address] Diabetes mellitus (Primary Dx) Social History Tobacco [...] uncontrolled documented in this encounter Care Teams Reel Hooker Relationship Specialty Start Date End Date Angie Mantilla MD [facility] [address] [place] [address] PCP - General 10/15/10 07/05/18 documented as of this encounter
--- OUTSIDE RECORDS SUMMARY | 2024-09-19 13:11 | XMS_ITS | Encounter Summary ---
Author Organization [facility] Address [facility] [place] [address] Care Team Providers Care Refueling Rampman Name Role Phone Angie Mantilla MD Primary Care Provider [phone] Reason for Visit * Reason Onset Date Comments Medication Refill 09/02/2011 Encounter Details Date Type Department Care Team (Late st Contact Info) Description 09/02/2011 [place] [address] Bobby Amos MD [facility] DR [place] [address] Diabetes mellitus Social History Tobacco Use Types Packs/Day [...] of this encounter Visit Diagnoses Diagnosis Diabetes mellitus Type II or unspecified type diabetes mellitus without mention of complication, not stated as uncontrolled documented in this encounter Care Teams Refueling Rampman Relationship Specialty Start Date End Date Angie Mantilla MD [facility] [address] [place] [address] PCP - General 10/15/10 07/05/18 documented as of this encounter
--- OUTSIDE RECORDS SUMMARY | 2024-09-19 13:11 | XMS_ITS | Encounter Summary ---
Author Organization [facility] Address [facility] [place] [address] Care Team Providers Care Registered Art Therapist Name Role Phone Angie Mantilla MD Primary Care Provider [phone] Reason for Visit * Reason Onset Date Comments Diabetes 09/02/2011 Encounter Details Date Type Department Care Team (Late st Contact Info) Description 09/02/2011 Tele[place] [address] Bobby Amos MD [facility] DR [place] [address] Diabetes Social History Tobacco Use Types Packs/Day [...] Telephone Encounter - Livia Lam LPN - 09/02/2011 9:25 AM EST Patient calls received lancets but not test strips from [employer] Rx prepared to [facility] [employer] [facility]. Forward to Dr Leslie in Dr Oreilly absence. documented in this encounter Plan of Treatment Not on file documented as of this encounter Visit Diagnoses Not on filedocumented in this encounter Care Teams Registered Art Therapist Relationship Specialty Start Date End Date Angie Mantilla MD [facility] [address] [place] [address] PCP - General 10/15/10 07/05/18 documented as of this encounter
--- OUTSIDE RECORDS SUMMARY | 2024-09-19 13:11 | XMS_ITS | Encounter Summary ---
Author Organization [facility] Address [facility] [place] [address] Care Team Providers Care Sign Maker Name Role Phone Angie Mantilla MD Primary Care Provider [phone] Reason for Visit * Reason Comments Diabetes Encounter Details Date Type Department Care Team (Late st Contact Info) Description 08/19/2011 10:30 AM EST Office [place] [address] Bobby Amos MD [facility] [address] [place] [address] Type 2 diabetes mellitus (Primary Dx) Discharge [...] Sign Reading Time Taken Comments Blood Pressure 132/81 08/19/2011 11:46 AM EST Pulse 80 08/19/2011 11:46 AM EST Temperature - - Respiratory Rate - - Oxygen Saturation - - Inhaled Oxygen Concentration - - Weight 84.6 kg (186 lb 9.6 oz) 08/19/2011 11:46 AM EST Height 165.1 cm (5' 5) 08/19/2011 11:46 AM EST Body Mass Index 31.05 08/19/2011 11:46 AM EST documented in this encounter Progress Notes * Bobby Amos MD - 08/19/2011 1:39 PM EST Component Latest Ref Rng 08/19/2011 Hemoglobin A1C 4.3 - 6.1 % 8.7 (H) Est Avg Gluc mg/dL 203 Audra presents for followup of her type 2 diabetes. She has been moved to a job closer to home and she is now able to commute to her own house rather than spending overnights in another town. This has made her life somewhat easier; although, she also had to give up her swimming which she was doing regularly at the other site. She continues taking Levemir 28 units at bedtime, Byetta 10 mcg twice a day, metformin 1000 mg twice a day, and glipizide extended release 5 mg per day. Her fingersticks one hour after supper had been running approximately 160. She has done relatively few other values, because she dislikes her FreeStyle meter and the lancet that goes along with it. Her A1c has risen from 8.1 to 8.7% in spite of continuation of the Byetta and her other therapy. I suggest that she switch to Victoza, which gives superior reduction in A1c in a head to head trial, and is a once a day medication. I will write a prescription for that. I also suggested that she check her fasting blood sugars on a new OneTouch meter that I gave her. We also gave her supplies and the [employer] Lancets for the finger lancer, and she will test first thing in the morning as well as post supper. I suggested a regimen of 3-0-3, which means that she should increase her Levemir 3 units every three days until her fasting glucose is in the range of 80 to 120. I also suggested that she reduce her dose 3 units every three days if her fasting glucose is less than 80. I will follow her up in four months because I suspect I will receive a rejection from her [place] based insurance company, on the switch to Victoza. It is however indicated since she has failed the first line drug Byetta, and is not achieving satisfactory glycemic control on her current treatment regimen. documented in this encounter Plan of Treatment Not on file documented as of this encounter Procedures Procedure Name Priority Date/Time Associated Diagnosis Comments HEMOGLOBIN A1C Routine 08/19/2011 10:33 AM EST Type 2 diabetes mellitus documented in this encounter Results * (ABNORMAL) Hemoglobin A1c (08/19/2011 10:33 AM EST) Hemoglobin A1c 8.7(H) 4.3 - 6.1 % [facility] Estimated Average Glucose 203 mg/dL [facility] Comment: eAG equivalents for HbA1c percentages: HbA1c(%) [...] ADA website: ??http://professional.diabetes.org/glucosecalculator.aspx Reference: Thomas MORALES, Mark Cleaning, Gasper R, et al. ??Translating the A1C assay into estimated average glucose values. ??Diabetes Care 2008:31(8):2715-0783. Blood specimen (specimen) 08/19/2011 10:33 AM EST 08/19/2011 10:41 AM EST Bobby Amos MD CHEMISTRY ORDERABL ES [facility] documented in this encounter Visit Diagnoses Diagnosis Type 2 diabetes mellitus- Primary Type II or unspecified type diabetes mellitus without mention of complication, not stated as uncontrolled documented in this encounter Care Teams Sign Maker Relationship Specialty Start Date End Date Angie Mantilla MD [facility] [address] [place] [address] PCP - General 10/15/10 07/05/18 documented as of this encounter
--- OUTSIDE RECORDS SUMMARY | 2024-09-19 13:11 | XMS_ITS | Encounter Summary ---
Author Organization [facility] Address [facility] [place] [address] Care Team Providers Care Glass Maker Name Role Phone Angie Mantilla MD Primary Care Provider [phone] Reason for Visit * Reason Onset Date Comments Results 03/30/2011 Encounter Details Date Type Department Care Team (Late st Contact Info) Description 03/30/2011 Telephone [place] [address] Bobby Amos MD [facility] [place] [address] Results Social History Tobacco Use Types Packs/Day Years [...] encounter Miscellaneous Notes * Telephone Encounter - Bobby Amos MD - 03/30/2011 1:34 PM EDT Called patient with results of her blood glucose monitoring at home. In general her preprandial glucose records were in the 70-150 range, but her HS values were high at 200-300. I advised her to decrease her supper carb calories and to monitor her hs sugars on a regular basis to provide feedback. Goal is <150. documented in this encounter Plan of Treatment Not on file documented as of this encounter Visit Diagnoses Not on filedocumented in this encounter Care Teams Glass Maker Relationship Specialty Start Date End Date Angie Mantilla MD [facility] [address] [place] [address] PCP - General 10/15/10 07/05/18 documented as of this encounter
--- OUTSIDE RECORDS SUMMARY | 2024-09-19 13:11 | XMS_ITS | Encounter Summary ---
Author Organization [facility] Address [facility] [place] [address] Care Team Providers Care Manager Meat Name Role Phone Angie Mantilla MD Primary Care Provider [phone] Reason for Visit * Reason Onset Date Comments Labs Only 03/02/2011 Encounter Details Date Type Department Care Team (Late st Contact Info) Description 03/02/2011 Telephone [place] [id number] Bobby Amos MD [facility] [place] [address] Labs Only Social History Tobacco Use Types [...] Telephone Encounter - Bobby Amos MD - 03/02/2011 9:15 AM EDT labs documented in this encounter Plan of Treatment Not on file documented as of this encounter Results * (ABNORMAL) Hemoglobin A1c (03/02/2011 4:29 PM EDT) Hemoglobin A1c 8.1(H) 4.3 - 6.1 % [facility] Estimated Average Glucose 186 mg/dL [facility] Comment: eAG equivalents for HbA1c percentages: HbA1c(%) [...] into estimated average glucose values. ??Diabetes Care 2008:31(8):4435-3615. Blood specimen (specimen) 03/02/2011 4:29 PM EDT 03/02/2011 4:42 PM EDT Bobby Amos MD CHEMISTRY ORDERABL ES [facility] documented in this encounter Visit Diagnoses Diagnosis Type 2 diabetes mellitus Type II or unspecified type diabetes mellitus without mention of complication, not stated as uncontrolled documented in this encounter Care Teams Manager Meat Relationship Specialty Start Date End Date Angie Mantilla MD [facility] [address] [place] [address] PCP - General 10/15/10 07/05/18 documented as of this encounter
--- OUTSIDE RECORDS SUMMARY | 2024-09-19 13:11 | XMS_ITS | Encounter Summary ---
Author Organization Replaced By [facility] Address [facility] [place] [address] Care Team Providers Care Quality Assurance Coach Name Role Phone Angie Mantilla MD Primary Care Provider [phone] Reason for Visit * Reason Onset Date Comments Medication Refill 03/03/2011 Encounter Details Date Type Department Care Team (Late st Contact Info) Description 03/03/2011 [place] [address] Ramirez [place] MD [facility] [place] [address] Social History Tobacco Use Types Packs/Day Years [...] on filedocumented in this encounter Care Teams Quality Assurance Coach Relationship Specialty Start Date End Date Angie Mantilla MD [facility] [address] [place] [address] PCP - General 10/15/10 07/05/18 documented as of this encounter
--- OUTSIDE RECORDS SUMMARY | 2024-09-19 13:11 | XMS_ITS | Encounter Summary ---
Author Organization [facility] Address [facility] [place] [place] [address] Care Team Providers Care Cloth Inspector Name Role Phone Angie Mantilla MD Primary Care Provider [phone] Reason for Visit * Reason Comments Follow-up Encounter Details Date Type Department Care Team (Late st Contact Info) Description 03/02/2011 3:30 PM EDT Office [place] [address] Bobby Amos MD [facility] [place] [address] Type 2 diabetes mellitus (Primary Dx) Discharge [...] Sign Reading Time Taken Comments Blood Pressure 128/78 03/02/2011 4:38 PM EDT Pulse 80 03/02/2011 4:38 PM EDT Temperature - - Respiratory Rate 16 03/02/2011 4:38 PM EDT Oxygen Saturation 98% 03/02/2011 4:38 PM EDT Inhaled Oxygen Concentration - - Weight 83 kg (183 lb) 03/02/2011 4:38 PM EDT Height - - Body Mass Index - - documented in this encounter Progress Notes * Bobby Amos MD - 03/03/2011 1:02 PM EDT Called with test results. Askled her to check blood sugars AC lunch, AC supper and 2hr PC supper, record the results for a week, and fAX the results to me for review and med adjustment. * Bobby Amos MD - 03/02/2011 11:03 PM EDT Her hemogolbin A1c is significantly improved at 8.1 % but still not at goal. Since her fasting glucose values are in the 100 range, she must still have some post prandial hyperglycemia. Will ask her to check blood sugars pr lunch and supper and 2 hour opst supper to obtain a better idea of glucose patterns. Will call patient to discuss. * Bobby Amos MD - 03/02/2011 5:40 PM EDT Audra returns to the diabetes clinic at [facility] for followup of her type-2 diabetes. At her initial visit, her glycemic control was poor based on an A1c of 9.3%. This was on a combination of Byetta, metformin, and glipizide. We added Levemir to her regimen and she has titrated the dose up to 22 to 25 units q.h.s. She has seen a dramatic improvement in her blood sugars although she has not been testing frequently through the day. Her morning sugars have roughly been running in the 100 range. She has gained five pounds but feels physically and emotionally better since improving her glycemic control. She has had two hypoglycemic reactions late in the evening with good prodromal symptoms. In addition to the Levemir, she continues taking Byetta 10 mcg twice a day, extended release glipizide 5 mg twice a day, and metformin 1000 mg twice a day. I recommended that she reduce her glipizide extended release to one 5 mg tablet per day and await the results of her hemoglobin A1c determination. I will write an addendum when the A1c is available and call her with the result. documented in this encounter Plan of Treatment Not on file documented as of this encounter Procedures Procedure Name Priority Date/Time Associated Diagnosis Comments HEMOGLOBIN A1C Routine 03/02/2011 4:29 PM EDT Type 2 diabetes mellitus documented in this encounter Results * (ABNORMAL) Hemoglobin A1c (03/02/2011 4:29 PM EDT) Hemoglobin A1c 8.1(H) 4.3 - 6.1 % [facility] Estimated Average Glucose 186 mg/dL [facility] Comment: eAG equivalents for HbA1c percentages: [...] into estimated average glucose values. ??Diabetes Care 2008:31(8):4699-2416. Blood specimen (specimen) 03/02/2011 4:29 PM EDT 03/02/2011 4:42 PM EDT Bobby Aoms MD CHEMISTRY ORDERABL ES Performing Organization Address City/State/[facility] Co co Phone Number [facility] documented in this encounter Visit Diagnoses Diagnosis Type 2 diabetes mellitus- Primary Type II or unspecified type diabetes mellitus without mention of complication, not stated as uncontrolled documented in this encounter Care Teams Cloth Inspector Relationship Specialty Start Date End Date Angie Mantilla MD [facility] [address] [place] [address] PCP - General 10/15/10 07/05/18 documented as of this encounter
--- OUTSIDE RECORDS SUMMARY | 2024-09-19 13:11 | XMS_ITS | Encounter Summary ---
Author Organization [facility] Address [facility] [place] [address] Care Team Providers Care Metal Weigher Name Role Phone Angie Mantilla MD Primary Care Provider [phone] Reason for Visit * Reason Onset Date Comments Labs Only 06/09/2011 Encounter Details Date Type Department Care Team (Late st Contact Info) Description 06/09/2011 Telephone [place] [phone] Bobby Amos MD [facility] [place] [address] Labs Only Social History Tobacco Use Types [...] Hemoglobin A1c 8.7(H) 4.3 - 6.1 % [facility] Estimated Average Glucose 203 mg/dL [facility] Comment: eAG equivalents for HbA1c percentages: [...] into estimated average glucose values. ??Diabetes Care 2008:31(8):1078-3926. Blood specimen (specimen) 08/19/2011 10:33 AM EST 08/19/2011 10:41 AM EST Bobby Amos MD CHEMISTRY ORDERABL ES Performing Organization Address City/State/[facility] Co pr Phone Number [facility] documented in this encounter Visit Diagnoses Diagnosis Type 2 diabetes mellitus Type II or unspecified type diabetes mellitus without mention of complication, not stated as uncontrolled documented in this encounter Care Teams Metal Weigher Relationship Specialty Start Date End Date Angie Mantilla MD [facility] [address] [place] [address] PCP - General 10/15/10 07/05/18 documented as of this encounter
--- OUTSIDE RECORDS SUMMARY | 2024-09-19 13:11 | XMS_ITS | Encounter Summary ---
Author Organization [facility] Address [facility] [place] [address] Care Team Providers Care Glue Spreader Name Role Phone Angie Mantilla MD Primary Care Provider [phone] Reason for Visit * Reason Onset Date Comments Medication Refill 08/19/2011 Encounter Details Date Type Department Care Team (Late st Contact Info) Description 08/19/2011 Refill [place] [address] Bobby Amos MD [facility] [place] [address] Social History Tobacco Use Types Packs/Day Years [...] on filedocumented in this encounter Care Teams Glue Spreader Relationship Specialty Start Date End Date Angie Mantilla MD [facility] [address] [place] [address] PCP - General 10/15/10 07/05/18 documented as of this encounter
--- OUTSIDE RECORDS SUMMARY | 2024-09-19 13:11 | XMS_ITS | Encounter Summary ---
Author Organization [facility] Address [facility] [place] [address] Care Team Providers Care Coal Loader Name Role Phone Angie Mantilla MD Primary Care Provider [phone] Encounter Details Date Type Department Care Team (Late st Contact Info) Description 12/15/2010 1:30 PM EST [place] [address] Bobby Amos MD [facility] [place] [address] Discharge Disposition: Home Social History Tobacco Use Types Packs/Day Years Used Date Smoking Tobacco: Never Assessed Sex and Gender Information Value Date Recorded Sex Assigned at Not on file Gender Identity Not on file Sexual Orientation Not on file documented as of this encounter Plan of Treatment Not on file documented as of this encounter Visit Diagnoses Not on filedocumented in this encounter Care Teams Coal Loader Relationship Specialty Start Date End Date Angie Mantilla MD [facility] [address] [place] [address] PCP - General 10/15/10 07/05/18 documented as of this encounter
[2024-09-19 20:29] LABS: ALT 13 U/L (14-59); AST 17 U/L (15-37); Albumin 3.9 g/dL (3.4-5.0); Alkaline Phosphatase 61 U/L (46-116); Anion Gap 6.5 mmol/L (3-11); BUN 25 mg/dL (7-18); Bilirubin, Total 0.27 mg/dL (0.2-1.0); CO2 30.5 mmol/L (21.0-32.0); CREATININE 1.1 mg/dL (0.55-1.02); Calcium 9.7 mg/dL (8.5-10.1); Chloride 104 mmol/L (98-107); Estimated GFR 53.06 (mL/min/1.73m2); Glucose 333 mg/dL (74-106); Potassium 4.8 mmol/L (3.5-5.1); Sodium 141 mmol/L (136-145); Total Protein 7.8 g/dL (6.4-8.2)
[2024-09-20 19:10] LABS: Hepatitis C Ab w Rflx HCV PCR Negative (Negative)
== END 2024-09-19 13:07 | disposition home or self-care (01) ==
LOC: NCHCN 13:06
PROVIDERS: PCP Nurse Practitioner Family; Visit Provider Physician Assistant
DX: E11.9 Type 2 diabetes mellitus without complications (principal); Z11.59 Encounter for screening for other viral diseases
CPT/HCPCS: 80053; 86803

== ENCOUNTER → 2025-01-02 09:08 | Outpatient (BNVA) | payer MEDICARE, SELFPAY | PROVIDERS: PCP Physician Assistant; Referring Provider Nurse Practitioner Family; Visit Provider Nurse Practitioner Gerontology | DX: R32 Unspecified urinary incontinence (principal); N32.81 Overactive bladder; R35.1 Nocturia; R39.9 Unspecified symptoms and signs involving the genitourinary system | CPT/HCPCS: 51798; 81003; 99215 ==

== ENCOUNTER → 2025-01-30 13:28 | Outpatient (BNVA) | payer MEDICARE, SELFPAY | PROVIDERS: PCP Physician Assistant; Visit Provider Nurse Practitioner Adult Health | DX: G30.9 Alzheimer's disease, unspecified (principal); F02.80 Dementia in other diseases classified elsewhere, unspecified severity, without behavioral disturbance, psychotic disturbance, mood disturbance, and anxiety | CPT/HCPCS: 99215 ==

== ENCOUNTER → 2025-04-09 09:22 | Outpatient (BNVA) | payer MEDICARE, SELFPAY | PROVIDERS: PCP Physician Assistant; Referring Provider Physician Assistant; Visit Provider Nurse Practitioner Gerontology | DX: N32.81 Overactive bladder (principal); N39.42 Incontinence without sensory awareness; R39.9 Unspecified symptoms and signs involving the genitourinary system; I10 Essential (primary) hypertension | CPT/HCPCS: 99213; 51798 ==